=== PATIENT | female | born 1945 | race Caucasian/White ===

== ENCOUNTER 2016-09-14 09:06 | Observation (INO) | payer MEDICARE, OTHER ==
[~2016-09-14] VITALS: Ht 162.6 cm; Wt 70.1 kg
[~2016-09-14 09:06] MED LIST: ALPR.25 PO; AMLO5TAB2 PO; ANAS1TAB PO; NADO20TA PO; OMEP20TA PO; VITA100064 PO
[2016-09-14 09:40] VITALS: BP 168/91; PULSE 65; RESP 16; TEMP 97.3; O2SAT 100
[2016-09-14] MEDS ORDERED: INSULIN HUMAN REGULAR 1,000 UNITS/10 ML VIAL SQ PRN (09:45)
[2016-09-14] MEDS ORDERED: METOPROLOL TARTRATE 25 MG TAB PO PRN (09:45)
[2016-09-14] MEDS ORDERED: ceFAZolin 2 GM PREMIX 50 ML IV SCH (10:00)
[2016-09-14] MEDS ORDERED: SODIUM CHLORID 0.9% 500 ML IV SCH (10:00)
[2016-09-14] MEDS ORDERED: LACTATED RINGER'S 1000 ML IV SCH (10:00)
[2016-09-14] MEDS ORDERED: NEOSTIGMINE 3 MG/3 ML SYR IV ONE (10:13)
[2016-09-14] MEDS ORDERED: ePHEDrine/NS 50 MG/5 ML SYR IV ONE (10:13)
[2016-09-14] MEDS ORDERED: PROPOFOL 200 MG/20 ML AMP IV ONE (10:13)
[2016-09-14] MEDS ORDERED: LACTATED RINGER'S 1000 ML INJ 1,000 ML IV ONE (10:13)
[2016-09-14] MEDS ORDERED: ONDANSETRON HCL 4 MG/2 ML VIAL IV PUSH ONE (10:13)
[2016-09-14] MEDS ORDERED: SODIUM BICARBONATE 8.4% INJ 50 ML ONE (10:44)
[2016-09-14] MEDS ORDERED: LIDOCAINE 1%/EPINEPHrine 1:100,000 SOLN 20 ML VIAL ONE (10:45)
[2016-09-14] MEDS ORDERED: BUPIVACAINE HCL PF 0.5% 30 ML VIAL ONE (10:55)
[2016-09-14 11:17] LABS: AUTOMATED NEUTROPHIL # 2.7 TH/MM3 (1.8-7.7); BASOPHIL % 0.7 % (0.0-2.0); EOSINOPHIL # 0.3 TH/MM3 (0-0.4); EOSINOPHIL % 7.2 % (0.0-4.0); HEMATOCRIT 40.5 % (35.0-46.0); HEMO FLAGS DIFF FINAL; LYMPH % 19.2 % (9.0-44.0); LYMPHOCYTE # 0.8 TH/MM3 (1.0-4.8); MEAN CELL VOLUME 88.8 FL (80.0-100.0); MEAN CORPUSCULAR HEMOGLOBIN 28.8 PG (27.0-34.0); MEAN CORPUSCULAR HGB CONC 32.4 % (32.0-36.0); MONO % 9.3 % (0.0-8.0); NEUT % 63.6 % (16.0-70.0); PLATELET COUNT 117 TH/MM3 (150-450); RED BLOOD COUNT 4.56 MIL/MM3 (4.00-5.30); RED CELL DISTRIBUTION WIDTH 16.9 % (11.6-17.2); WHITE BLOOD COUNT 4.2 TH/MM3 (4.0-11.0)
[2016-09-14] MEDS ORDERED: BUPIVACAINE HCL PF 0.25% 30 ML VIAL ONE ×3 (11:55→11:58)
--- NOTE | 2016-09-14 12:07 | RADRPT ---
EXAM DATE/TIME: 09/14/2016 10:37 [facility] COMPARISON: No previous studies available for comparison. EXTERNAL COMPARISON : [facility], US BREAST, LEFT, September 02, 2016, MRI BREAST, BILATERA L, August 24, 2016, April 19, 2016, [facility], MAMMOGRAM POST BIOPSY, March 24, 2016, US BREAST SPECIMEN, March, US GUIDED LEFT BREAST BIOPSY, March 24, 2016, [facility] , US BREAST, LEFT, March 02, 2016, MAMMOGRAM, LEFT BREAST, March 02, 2016. INDICATIONS : Left breast mass seen on mammogram. MEDICAL HISTORY : Hypertension. Gastroesophageal reflux disease. Carcinoma, breast. Seizures. Mur mur. Uterine cancer. Throat cancer. Sciatica. SURGICAL HISTORY : Tonsillectomy. Appendectomy. Hysterectomy. Right angiogram. G tube placement. Polyps removed. Fissure fusion. IUD removal. Chemotherapy. ENCOUNTER: Initial ACUITY: 4-6 months PAIN SCORE: 0/10 LOCATION: Left breast. AREA EVALUATED: Left breast, upper quadrant; at 2 o'closk Radiopharmaceutical dose:1 Tc99m [place] colloid FINDINGS: Breast ultrasound was performed prior to lymphoscintigraphy. CONCLUSION: Ultrasound was used to localize the tumor in the left breast for lymphoscintigraphy. Kana Gonzalez MD FACR on September 14, 2016 at 12:05 Board Certified Radiologist. This report was verified electronically.
--- NOTE | 2016-09-14 12:22 | RADRPT ---
EXAM DATE/TIME: 09/14/2016 10:52 [facility] COMPARISON: No previous studies available for comparison. INDICATIONS : Left breast cancer. DOSE: 1.0 mCi Tc99m Sulfur Colloid INJECTION SITE: Left Breast MEDICAL HISTORY : Seizures. Breast, throat and uterine cancer. Current smoker. SURGICAL HISTORY : Hysterectomy. ENCOUNTER: Initial ACUITY: 2 months PAIN SCALE: 4/10 LOCATION: Right Breast. TECHNIQUE: Injection(s) of sulfur colloid was performed under sonographic guidance. Static imagi ng was obtained.. FINDINGS: Ultrasound localization was used to inject superficial and deep radiotracer in the left breast. CONCLUSION: Nuclear medicine lymphoscintigraphy left breast. Kana Gonzalez MD FACR on September 14, 2016 at 12:20 Board Certified Radiologist. This report was verified electronically.
[2016-09-14] MEDS ORDERED: FAMOTIDINE 20 MG/2 ML VIAL ONE (12:29)
[2016-09-14] MEDS ORDERED: MIDAZOLAM HCL 2 MG/2 ML VIAL ONE (12:29)
[2016-09-14] MEDS ORDERED: DEXAMETHASONE SOD PHOS 4 MG/ML VIAL ONE (12:29)
[2016-09-14] MEDS ORDERED: DICLOFENAC SODIUM 37.5 MG/ML VIAL IV PUSH ONE (12:29)
[2016-09-14] MEDS ORDERED: ACETAMINOPHEN 1000 MG/100 ML VIAL IV ONE (12:29)
--- NOTE | 2016-09-14 14:53 | EKG ---
Date Performed: 09/14/2016 Time Performed: 12:26:34 PTAGE: 70 years EKG: Sinus rhythm NORMAL ECG COMPARED TO PRIOR ELECTROCARDIOGRAM, poor R wave progression is no longer present. PREVIOUS TRACING : 03/27/2015 10.51 DOCTOR: Kirit Adan Interpretating Date/Time 09/14/2016 14:52:08
[2016-09-14] MEDS ORDERED: HYDROmorphone HCL PF 1 MG/ML VIAL IV PRN (17:30)
[2016-09-14] MEDS ORDERED: ZOLPIDEM TARTRATE 5 MG TAB PO PRN (17:30)
[2016-09-14] MEDS ORDERED: BISACODYL EC 5 MG TABEC PO PRN (17:30)
[2016-09-14] MEDS ORDERED: MAGNESIUM HYDROXIDE SUSP 30 ML CUP PO PRN (17:30)
[2016-09-14] MEDS ORDERED: METOCLOPRAMIDE HCL 10 MG/2 ML VIAL IV PRN (17:30)
[2016-09-14] MEDS ORDERED: ONDANSETRON HCL 4 MG/2 ML VIAL IV PRN (17:30)
[2016-09-14] MEDS ORDERED: SODIUM CHLORIDE 0.9% FLUSH 5 ML FLUSH IVF PRN (17:30)
[2016-09-14] MEDS ORDERED: NALOXONE HCL 0.4 MG/ML AMP IV PRN (17:30)
[2016-09-14] MEDS ORDERED: ACETAMINOPHEN/HYDROcodone 325 MG/5 MG TAB PO PRN (17:30)
[2016-09-14] MEDS ORDERED: Post-op Orders (for Pharmacy) MISC XX ONE (17:30)
[2016-09-14] MEDS ORDERED: ACETAMINOPHEN/HYDROcodone 325 MG/7.5 MG TAB PO PRN (17:30)
[2016-09-14] MEDS ORDERED: *morphine SULFATE 8 MG/ML PERIprocedure ONLY ONE (17:36)
--- NOTE | 2016-09-14 17:39 | HHI.PR ---
cc: Jorge Walls MD Immediate Post Op Note Procedure Date: Sep 14, 2016 Pre Op Diagnosis: (1) History of external beam radiation therapy (2) Gastrostomy tube in place (3) Breast cancer, left (4) Tongue malignant neoplasm (5) Hx of thrombophlebitis (6) Hx of cancer of uterus Post Op Diagnosis: (1) History of external beam radiation therapy (2) Gastrostomy tube in place (3) Breast cancer, left (4) Tongue malignant neoplasm (5) Thrombophlebitis (6) Liver cirrhosis Surgeon: Jorge Walls Column Precaster(s): Refer to OR record Procedure: Injection of LigaSure and blue dye Removal of gastrostomy tube Prophylactic right mastectomy Modified radical mastectomy left with sentinel node identification with lymphatic mapping Placement of On-Q pain pump Anesthesia: General Drains: None IVF Patient to: PACU Patient Condition: Good Implant/Devices: SEE IMPLANT LOG (if applicable) Date/Time of Procedure: SEE SURGICAL CARE RECORD Jorge Walls MD Sep 14, 2016 17:39
[2016-09-14] MEDS ORDERED: ALPRAZolam 0.25 MG TAB PO PRN (17:45)
[2016-09-14] MEDS ORDERED: NORC5TAB PO (17:59)
[2016-09-14] MEDS: SODIUM CHLOR 0.9% 1000 ML INJ 1,000 ML IV SCH (18:00)
[2016-09-14] MEDS ORDERED: DO NOT ADM ANY ANTICOAGULANT DRUGS XX PRN (19:30)
[2016-09-14 20:00] VITALS: BP 124/66; PULSE 56; RESP 18; TEMP 97; O2SAT 100
[2016-09-14] MEDS: SODIUM CHLORIDE 0.9% FLUSH 5 ML FLUSH IVF SCH (21:00)
[2016-09-14] MEDS: ACETAMINOPHEN 1000 MG/100 ML VIAL IV SCH (21:21)
[2016-09-14] MEDS: DOCUSATE SODIUM 100 MG CAP PO SCH (21:21)
[2016-09-15] VITALS: BP 109/64; PULSE 56; RESP 16; TEMP 97.6; O2SAT 100
[2016-09-15] MEDS: ACETAMINOPHEN 1000 MG/100 ML VIAL IV SCH ×2 (01:04→08:06)
[2016-09-15 04:00] VITALS: BP 99/57; PULSE 55; RESP 18; TEMP 97.6; O2SAT 100
[2016-09-15] MEDS: SODIUM CHLOR 0.9% 1000 ML INJ 1,000 ML IV SCH (05:42)
[2016-09-15 08:00] VITALS: BP 98/57; PULSE 59; RESP 19; TEMP 96.4; O2SAT 97
[2016-09-15] MEDS: DOCUSATE SODIUM 100 MG CAP PO SCH (08:06)
[2016-09-15] MEDS: SODIUM CHLORIDE 0.9% FLUSH 5 ML FLUSH IVF SCH (08:13)
[2016-09-15] MEDS ORDERED: PANTOPRAZOLE SOD 20 MG DELAYED RELEASE TAB PO SCH (09:00)
[2016-09-15] MEDS ORDERED: CHOLECALCIFEROL (VIT D3) 1000 UNIT TAB PO SCH (09:00)
[2016-09-15] MEDS ORDERED: ANASTROZOLE 1 MG TAB PO SCH (09:00)
[2016-09-15] MEDS ORDERED: amLODIPine BESYLATE 5 MG TAB PO SCH (09:00)
[2016-09-15] MEDS ORDERED: NADOLOL 20 MG TAB PO SCH (09:00)
[2016-09-15 09:44] VITALS: O2SAT 98
[2016-09-15 12:00] VITALS: BP 107/56; PULSE 62; RESP 17; TEMP 95.8; O2SAT 100
--- NOTE | 2016-09-20 19:07 | MP ---
cc: ARTEMIO HAYS MD, H ALVAREZ-FARINETTI,DENISE MENDEZ,VITALY BARRAGAN M.D., HASSAN M.D. DATE OF SURGERY 09/14/2016 PREOPERATIVE DIAGNOSIS Right breast cancer tongue cancer. POSTOPERATIVE DIAGNOSIS Right breast cancer tongue cancer. PROCEDURE 1. Removal of gastrostomy tube. 2. Injection of Lymphazurin blue dye in left breast cancer for lymphatic mapping. 3. Prophylactic right simple mastectomy. 4. Modified radical mastectomy with identification of numerous sentinel nodes by lymphatic mapping. 5. Placed of On-Q pain pump for postop pain management. ANESTHESIA General SURGEON Dr. Walls INDICATIONS This is a pleasant 70-year-old female who was found to have a left-sided breast cancer. She also had a head and neck cancer that is the previously treated with radiation and chemotherapy into an Tdwtjv-D-Ixsm. She is now set for definitive surgery for breast cancer. Unfortunately, she was found to have some other suspicious nodules in the right breast that were going to be worked up, but she has decided to proceed with bilateral mastectomy. In addition, she has a gastrostomy tube that is no longer being used and she asked me to pull the gastrostomy tube during the breast cancer surgery. PROCEDURE The patient was taken to the operating room, placed in the supine position. After endotracheal anesthesia, the gastrostomy tube is pulled after we did a time-out. We then prepped for left breast, identifying where the radioactive tracer had been placed and inject 6 cc of Lymphazurin blue dye for lymphatic mapping to identify the sentinel nodes. Noted that we have one or two hot spots in the axillary region with the navigator probe. After prepping and draping with Betadine, we then direct our attention to the right breast. An elliptical incision was made in typical fashion. Flaps were made superiorly and inferiorly all the way from the sternum along the pectoralis muscle to elevate the breast tissue to the tail of breast which is removed. This was marked with a stitch at the 12 o'clock position. We then irrigate copiously. No lymphadenopathy is palpated. We then placed the On-Q pain pump because of her aversion to narcotics and placed the drain in the inferior flap. We then reapproximate the deep skin layer with 3-0 Vicryl and the skin was reapproximated with a 4-0 Vicryl. We then direct our attention to the left side. Similar incision is made, an elliptical incision to incorporate all the breast tissue. We made superior flaps up to the clavicle, inferior to the muscles of the abdominal wall and from the sternum along the pectoralis muscle up to the tail of the breast identifying the subclavian vein. The lymph nodes were identified and labeled as such with the pathology report. All the sentinel nodes were identified by a combination of blue dye and the radioactivity. These were sent down in separate specimen container. The breast tissue was then removed and passed off the field, marked similarly with a stitch at the 12 o'clock position. We then irrigate copiously. No other lymphadenopathy is appreciated. No other hot spots is noted in the axillary region. We then placed an On-Q pain pump along the superior aspect of the wound and two LOREN's one in the axillary space, one in the inferior flap. These were secured to the skin with 3-0 nylon. We then reapproximate the deep layer of the flaps of the breast with a 3-0 Vicryl and the skin was closed with 4-0 Vicryl and then the Yanique dressing is then placed on the mastectomy site for wound care management. The On-Q pain pump disconnected as well. The patient returned to recovery with no immediate postop complication. MD CHANTELL Correa/DAHIANA /5:47 PM /6:50 PM IN[facility]
[2016-12-19] MEDS ORDERED: OMEP20TA PO (10:18)
== END 2016-09-15 14:47 | disposition home health service (06) ==
LOC: HSDC 09:06 → HSDI 17:33 → UNDOADMIN 17:33 → N07A 18:46 → HSDI 18:46 → UNDODISIN 09-15 14:47
PROVIDERS: ADMIT Surgery; ATTEND Surgery
DX: C50.412 Malignant neoplasm of upper-outer quadrant of left female breast (principal); C76.0 Malignant neoplasm of head, face and neck; I10 Essential (primary) hypertension
CPT/HCPCS: 00404; 19303; 19307; 76642; 78195; 85025; 88307; 88309; 93005; 94150; A9541; G0378; J0131; J1100; J1130; J2250; J2270; J2405; J2710; J3010; J7030; J7120; 88305

== ENCOUNTER 2016-12-01 13:19 | Day surgery (SDC) | payer OTHER, MEDICAID ==
[~2016-12-01 13:19] MED LIST changes: +NORC5TAB PO
[2016-12-01 13:48] VITALS: BP 129/72; PULSE 75; RESP 16; TEMP 97; O2SAT 100
--- NOTE | 2016-12-01 15:07 | RADRPT ---
EXAM DATE/TIME: 12/01/2016 13:57 [facility] COMPARISON: No previous studies available for comparison. EXTERNAL COMPARISON : [facility], PET/CT - HEAD & NECK CA, October 06, 2016[facility]. CT SOFT TISSUE NEC K, W & W/O CONTRAST August 17, 2016. INDICATIONS : Abnormal PET scan, left parotid mass. MEDICAL HISTORY : Hypertension. Gastroesophageal reflux disease. Seizures. Uterine, breast and throat cancer. SURGICAL HISTORY : Tonsillectomy. Appendectomy. Hysterectomy. G tube placement. Polyps and removed. Fissure fusion. ENCOUNTER: Initial ACUITY: 1 day PAIN SCORE: 0/10 LOCATION: Left neck AREA EVALUATED: Left neck. FINDINGS: Ultrasound the left neck and face was performed prior to planned parotid region biopsy. Prior neck CT documented a symmetric appearance to the left parotid gland and patient reports history of prior lef t facial swelling. Prior PET/CT demonstrated asymmetric hypermetabolic activity in the left parotid g land. Ultrasound documents a normal-appearing parotid gland. No mass is identified. The surrounding tissue also has a normal appearance. On clinical exam there is no swelling or skin changes in the area of in terest. CONCLUSION: No parotid gland or left facial mass is identified. Therefore, no biopsy was performed. I question wh ether the asymmetric activity in the parotid glands on the recent PET/CT may be related to the right neck radiation therapy which has resulted in a hypoactive right parotid gland making the left parotid gland appear hypermetabolic. Ignacio Saenz MD on December 01, 2016 at 15:01 Board Certified Radiologist. This report was verified electronically.
[2016-12-19] MEDS ORDERED: OMEP20TA PO (10:18)
== END 2016-12-01 15:05 | disposition home or self-care (01) ==
LOC: HRAD 13:19 → HRIP 13:23 → HRAD 15:05
PROVIDERS: ATTEND Specialist
DX: R22.1 Localized swelling, mass and lump, neck (principal)
CPT/HCPCS: 76536

== ENCOUNTER 2016-12-21 14:01 | Inpatient (IN) | payer OTHER, MEDICARE ==
[~2016-12-21] VITALS: Ht 165.1 cm; Wt 66.2 kg
[2016-12-21] VITALS (15 sets, daily range): BP systolic 99–151; BP diastolic 51–70; PULSE 69–92; RESP 15–18; TEMP 96.5–99.2; O2SAT 97–100
--- NOTE | 2016-12-21 14:07 | PD ---
Physical Exam Time Seen by Provider: 14:06 Narrative 71 y/o female presents W left foot/hip pain for several days. Denies known mechanism of injury. Vital signs reviewed. Seen at triage desk. Awaiting bed placement. Data Data Last Documented VS Vital Signs Date Time Temp Pulse Resp B/P Pulse Ox O2 Delivery O2 Flow Rate FiO2 12/21/16 14:05 98.1 92 18 146/69 99 MDM Medical Record Reviewed: Yes Supervised Visit with KACIE: Hector Esposito December 21, 2016 14:07
--- NOTE | 2016-12-21 14:52 | RADRPT ---
EXAM DATE/TIME: 12/21/2016 14:32 [facility] COMPARISON: No previous studies available for comparison. INDICATIONS : left foot pain and numbness. MEDICAL HISTORY : Carcinoma, breast. Left breast CA. SURGICAL HISTORY : Hysterectomy. Bilateral mastectomy. ENCOUNTER: Initial ACUITY: 1 month PAIN SCORE: 8/10 LOCATION: Left Foot. FINDINGS: Mild arthritic change in the first MTP joint. There is no evidence of fracture, dislocation or bony d estruction. The soft tissues are focally unremarkable. CONCLUSION: Mild arthritic changes. Ignacio Hampton MD on December 21, 2016 at 14:49 Board Certified Radiologist. This report was verified electronically.
[2016-12-21] MEDS ORDERED: PROC10TA PO (15:27)
[2016-12-21] MEDS ORDERED: HEPARIN SODIUM - IV 10,000 UNITS/10 ML VIAL IV ONE (15:45)
[2016-12-21] MEDS ORDERED: HEPARIN-D5W INJ 250 ML IV SCH (15:45)
[2016-12-21] MEDS ORDERED: SODIUM CHLORIDE 0.9% FLUSH 10 ML FLUSH IVF PRN (15:45)
[2016-12-21 16:29] LABS: APTT (PATIENT) 31.3 SEC (24.3-30.1); INTERNATIONAL NORMALIZED RATIO 1.1 RATIO; PROTHROMBIN TIME - PATIENT 12.3 SEC (9.8-11.6)
[2016-12-21 16:32] LABS: HEMATOCRIT 22.7 % (35.0-46.0); MEAN CELL VOLUME 82.8 FL (80.0-100.0); MEAN CORPUSCULAR HGB CONC 33.8 % (32.0-36.0); RED BLOOD COUNT 2.74 MIL/MM3 (4.00-5.30); RED CELL DISTRIBUTION WIDTH 26.2 % (11.6-17.2); WHITE BLOOD COUNT 1.1 TH/MM3 (4.0-11.0)
[2016-12-21 16:39] LABS: ANION GAP 9 MEQ/L (5-15); BICARBONATE 24.4 MEQ/L (21.0-32.0); BLOOD UREA NITROGEN 15 MG/DL (7-18); CHLORIDE 104 MEQ/L (98-107); GLOMERULAR FILTRATION RATE 79 ML/MIN (>89); MAGNESIUM 1.8 MG/DL (1.5-2.5); POTASSIUM 4.2 MEQ/L (3.5-5.1); SODIUM (NA) 137 MEQ/L (136-145)
[2016-12-21] MEDS ORDERED: IOHEXOL 350 MG/ML 10 ML VIAL (for RAD DIAG) IV ONE (16:42)
[2016-12-21 16:50] LABS: HEMO FLAGS AUTO DIFF; REVIEW FLAG AUTO DIFF
--- NOTE | 2016-12-21 16:56 | RADRPT ---
EXAM DATE/TIME: 12/21/2016 16:15 [facility] COMPARISON: No previous studies available for comparison. INDICATIONS : Left foot/leg pain for 1 week. IV CONTRAST: 78 cc Omnipaque 350 (iohexol) IV RADIATION DOSE: 1.78 CTDIvol (mGy) MEDICAL HISTORY : Seizures. Cardiovascular disease Hypertension.Breast and uterine cancer SURGICAL HISTORY : Appendectomy. Hysterectomy. ENCOUNTER: Initial ACUITY: 1 week PAIN SCALE: 4/10 LOCATION: Left lower extremity TECHNIQUE: Volumetric scanning was performed using a multi-row detector CT scanner. The data was post processed with a variety of visualization algorithms including full volume maximum intensity projection, multi -planar sliding thin slab reformation, curved planar reformation, and surface rendering techniques. Using automated exposure control and adjustment of the mA and/or kV according to patient size, radiat ion dose was kept as low as reasonably achievable to obtain optimal diagnostic quality images. FINDINGS: Aorta/inflow: There is chronic occlusion of the infrarenal aorta and inflow vessels bilaterally. The occlusion begi ns just below the origin of the renal arteries. The common iliac and external iliac arteries are extr valente small in caliber and homogeneously calcified. The internal iliac arteries are chronically occlu ded bilaterally. Calcified plaque generates a 40% stenosis of the SMA origin. Celiac is patent. ZULY i s stenotic at its origin but otherwise patent. Renal arteries are calcified but patent. Right lower extremity: There is reconstitution of a heavily diseased common femoral artery. Calcified plaque generates a 50% stenosis of the common femoral artery. The profunda femoris origin is highly stenotic secondary to e ccentric calcified plaque. The [place] SFA is chronically occluded. There is a common femoral artery t o above the knee popliteal artery bypass utilizing PTFE. This is occluded. This is felt to be chronic in nature. Portions of the graft are totally decompressed. The popliteal artery just distal to the d istal anastomosis shows calcified plaque generating a 50% stenosis. This occurs at the metaphyseal le estela. Inferior to this the popliteal artery is patent. The trifurcation vessels are partially opacifie d with contrast. There somewhat limited in their evaluation. Diffuse disease of all 3 trifurcation ve ssels observed. This is secondary to calcified plaque. Multiple areas of moderate luminal narrowing a re seen scattered throughout all 3 trifurcation vessels. Left lower extremity: The common femoral artery is chronically occluded. There is reconstitution of the proximal profunda f emoris branches but these are fairly small in caliber. The [place] SFA is chronically occluded. There is reconstitution of a heavily diseased above the knee popliteal artery. The below-knee popliteal art brianna is patent. Diffuse disease of the trifurcation vessels with multiple moderate stenoses scattered throughout all trifurcation vessels. Other structures: Sclerotic changes involving the liver. Multiple calcified gallstones within a decompressed gallbladde r. Mild splenomegaly. Portal vein and splenic vein are patent. Colonic diverticulosis. No acute infla mmation. Trace amount of free fluid deep within the pelvis. CONCLUSION: 1. 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 2. Right lower extremity shows severe outflow disease. There is chronic occlusion of the femoropoplit eal bypass as well as the [place] SFA. Reconstitution of the fezel-giq-czbl popliteal artery. Diffuse moderate trifurcation disease. 3. Left lower extremity has chronic occlusion of the common femoral artery and outflow vessels. There is reconstitution of a heavily diseased above the knee popliteal artery. Diffuse moderate disease of the trifurcation vessels. 4. The patient's disease is not amenable to endovascular repair. 5. Cirrhosis. 6. Splenomegaly. 7. Colonic diverticulosis. Jan Ferraro Jr., MD on December 21, 2016 at 16:41 Board Certified Radiologist. This report was verified electronically.
[2016-12-21 16:57] LABS: PLATELET COUNT 17 TH/MM3 (150-450)
[2016-12-21 16:59] LABS: CREATINE KINASE 22 U/L (26-192)
--- NOTE | 2016-12-21 17:06 | RADRPT ---
EXAM DATE/TIME: 12/21/2016 16:04 [facility] COMPARISON: CHEST SINGLE AP, March 27, 2015, 10:49. INDICATIONS : Shortness of breath. MEDICAL HISTORY : Chronic obstructive pulmonary disease. Carcinoma, breast. SURGICAL HISTORY : Mastectomy, bilateral. Qkwsha-P-Kmcu. ENCOUNTER: Initial ACUITY: 2 days PAIN SCORE: 0/10 LOCATION: Chest FINDINGS: A left subclavian Oruqmr-t-Ewku has its tip in the superior vena cava. There is no pneumothorax. Th e heart is normal. The pulmonary vascular pattern is also normal. The lungs are clear. CONCLUSION: No acute cardiopulmonary disease. Paulie Carey MD on December 21, 2016 at 17:00 Board Certified Radiologist. This report was verified electronically.
[2016-12-21] MEDS ORDERED: SODIUM CHLOR 0.9% 250 ML INJ 250 ML IV ONE (17:15)
--- NOTE | 2016-12-21 17:37 | PD.VS.CON ---
History of Present Illness Chief Complaint: left leg pain.. Consult Requested by: Dr. Bonenr History of Present Illness This is a 71 year old female with hx of left leg pain that is more severe than usual in her left lower extremity. In [facility] and had a sharper than usual pain that radiated from her hips distally that was more excruciating than usual. Patient notes she has left hip pain with ambulation but also complains of left calf pain. She has a hx of pain with ambulation of less than 50 feet and Rest pain for more than 3 years. She has a hx of a right lower extremity bypass. No pain at rest at this point. Motor function intact. She had bilateral mastectomies about 6 weeks ago and is getting chemotherapy. Hx of tongue cancer more than a year ago treated with chemotx. Hx of liver cirrhosis from ETOH abuse. Continues to smoke. Past/Family/Social History Home Medications Active Scripts Omeprazole 20 Mg Tab20 Mg PO DAILY #90 TAB Ref 3 Prov:Blayne Marx MD R3 12/19/16 Hydrocodone-Acetaminophen ([place])5-325 mg Tab1 Tab PO Q6H PRN (PAIN) #30 TAB Ref 0 Prov:Jorge Walls MD 09/14/16 Reported Medications Prochlorperazine Maleate 10 Mg Tab10 Mg PO Q6H PRN (NAUSEA OR VOMITING) Ref 0 12/21/16 Alprazolam (Xanax)0.25 Mg Tab0.25 Mg PO Q8H PRN (ANXIETY) Ref 0 09/13/16 Anastrozole 1 Mg Tab1 Mg PO DAILY #30 TAB Ref 0 09/13/16 Amlodipine 5 Mg Tab5 Mg PO DAILY #30 TAB Ref 0 09/13/16 Cholecalciferol (Vitamin D)1,000 Unit Tab1,000 Units PO DAILY #1 BOTTLE Ref 0 09/09/16 Nadolol 20 Mg Tab20 Mg PO DAILY #30 TAB Ref 0 09/09/16 Discontinued Reported Medications Omeprazole 20 Mg Tab20 Mg PO DAILY #30 TAB Ref 0 09/09/16 Coded Allergies: No Known Allergies (Unverified , 12/21/16) Review of Systems Constitutional: COMPLAINS OF: Diaphoretic episodes Cardiovascular: COMPLAINS OF: Claudication Neurologic: COMPLAINS OF: Abnormal gait, Poor Balance Physical Exam Vitals/I&O Date Time Temp Pulse Resp B/P Pulse Ox O2 Delivery O2 Flow Rate FiO2 12/21/16 17:06 70 17 121/70 100 12/21/16 16:02 78 18 151/69 100 12/21/16 16:00 100 Room Air 12/21/16 15:59 100 Room Air 12/21/16 15:22 16 12/21/16 14:05 98.1 92 18 146/69 99 Neuro: Alert and Oriented x 3 Neck: supple Heart: irregular Lungs: Decreased at base. Abdomen: soft and non-distended. Vascular: Monophasic left femoral and Faint PT and Peroneal. Biphasic right femoral and monophasic PT. Motor and fine sensory intact. Laboratory Tests Test 12/21/16 15:55 White Blood Count 1.1 Red Blood Count 2.74 Hemoglobin 7.7 Hematocrit 22.7 Mean Corpuscular Volume 82.8 Mean Corpuscular Hemoglobin 28.0 Mean Corpuscular Hemoglobin 33.8 Concent Red Cell Distribution Width 26.2 Platelet Count 17 Mean Platelet Volume 10.5 Neutrophils (%) (Auto) Lymphocytes (%) (Auto) Monocytes (%) (Auto) Eosinophils (%) (Auto) Basophils (%) (Auto) Neutrophils # (Auto) Lymphocytes # (Auto) Monocytes # (Auto) Eosinophils # (Auto) Basophils # (Auto) CBC Comment AUTO DIFF Prothrombin Time 12.3 Prothromb Time International 1.1 Ratio Activated Partial 31.3 Thromboplast Time Sodium Level 137 Potassium Level 4.2 Chloride Level 104 Carbon Dioxide Level 24.4 Anion Gap 9 Blood Urea Nitrogen 15 Creatinine 0.73 Estimat Glomerular Filtration 79 Rate Random Glucose 122 Calcium Level 8.6 Magnesium Level 1.8 Total Creatine Kinase 22 Troponin I LESS THAN 0.02 Last 48 hours Impressions Aorta w/Runoff CTA 12/21/16 1549 Signed Impressions: Service Date/Time: Wednesday, December 21, 2016 16:15 - CONCLUSION: 1. 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 2. Right lower extremity shows severe outflow disease. There is chronic occlusion of the femoropopliteal bypass as well as the [place] SFA. Reconstitution of the zdhji-byd-pyit popliteal artery. Diffuse moderate trifurcation disease. 3. Left lower extremity has chronic occlusion of the common femoral artery and outflow vessels. There is reconstitution of a heavily diseased above the knee popliteal artery. Diffuse moderate disease of the trifurcation vessels. 4. The patient's disease is not amenable to endovascular repair. 5. Cirrhosis. 6. Splenomegaly. 7. Colonic diverticulosis. Jan Ferraro Jr., MD Foot X-Ray 12/21/16 0000 Signed Impressions: Service Date/Time: Wednesday, December 21, 2016 14:32 - CONCLUSION: Mild arthritic changes. Ignacio Hampton MD Assessment and Plan Assessment: (1) PAD (peripheral artery disease) Status: Acute (2) Liver cirrhosis Status: Acute (3) Breast cancer, left Status: Acute Plan This is a pleasant 71 year old female with chronic critical limb ischemia. She has had rest pain for a few years and has had short distance claudication. She is on chemotx for breast cancer and is pancytopenic. Her motor and sensory function is intact and I suspect her medical condition as well as her exertion (shopping in [place]) may have exacerbated her PAD. She has multilevel disease by CTA. She is not an open surgical candidate for a bypass procedure at this time. I will continue to follow her and once she has been transfused she may benefit from some physical therapy. Otherwise, she can be treated with pain management. Francisco J Vogel DO, FACS Sales Receptionist of Vascular Surgery /Francisco J Ulrich DO December 21, 2016 17:37
--- NOTE | 2016-12-21 17:39 | PD ---
HPI Chief Complaint: Pain: Acute or Chronic Time Seen by Provider: 17:26 Travel History International Travel<30 days: No Contact w/Intl Traveler<30days: No Traveled to known affect area: No History of Present Illness HPI 71-year-old female came to the emergency room with history of left leg pain while she was in [facility]. Patient says she's been having pain in her left leg on and off for a few months now. However, today the sister noticed that her left foot was turning purple which has never happened before. Also patient has been complaining of numbness starting from her hip all the way down to her toes. Patient says she had to sit down at [facility] when the pain was severe. Her sister noticed that her rest of the skin color was pale and she was diaphoretic. It seemed like she was going to pass out when they called 911. Patient says now she is feeling little better and the pain had subsided to some extent. However her foot feels cold to her. She has history of peripheral vascular disease in many years ago had a stent put in her right leg. Patient is still a smoker. She has other significant comorbidities in the form of breast cancer and currently going through chemotherapy. Her oncologist is Dr. Mercedes. She has also been diagnosed with alcoholic cirrhosis all the patient does not drink alcohol anymore. FORMERLY [facility] Past Medical History Narrative Medical List of her past medical, surgical, social and family history is reviewed from the nursing note. Cancer: Yes (UTERINE CANCER, THROAT CANCER, BREAST CA) Cardiovascular Problems: Yes (MURMUR) Chemotherapy: Yes (2 weeks ago) Cirrhosis: Yes Diabetes: No Diminished Hearing: No Endocrine: No Gastrointestinal Disorders: Yes (G-TUBE, REFLUX) Genitourinary: No Hepatitis: No Hiatal Hernia: No Hypertension: Yes Immune Disorder: No Implanted Vascular Access Dvce: Yes (port l chest) Medical other: Yes (pvd) Musculoskeletal: Yes (SCIATICA) Neurologic: Yes (SEIZURES) Psychiatric: Yes (ANXIETY, DEPRESSION) Reproductive: Yes (UTERINE CANCER, BREAST CA) Respiratory: No Immunizations Current: No Myocardial Infarction: Yes Seizures: Yes Thyroid Disease: No Tetanus Vaccination: > 5 Years Influenza Vaccination: No ?: Not Past Surgical History Abdominal Surgery: Yes (polyps removed, FISSURE FUSION, G-TUBE PLACEMENT/ removal) AICD: No Appendectomy: Yes Cardiac Surgery: No Ear Surgery: No Endocrine Surgery: No Eye Surgery: No Genitourinary Surgery: No Gynecologic Surgery: Yes (HYSTERECTOMY, IUD REMOVED) Hysterectomy: Yes Joint Replacement: No Neurologic Surgery: Yes (RIGHT ANGIOGRAM) Oral Surgery: Yes (TONSILLECTOMY) Pacemaker: No Thoracic Surgery: No Other Surgery: Yes Social History Alcohol Use: No Tobacco Use: Yes (08/24 ppd) Substance Use: No Allergies-Medications (Allergen,Severity, Reaction): Coded Allergies: No Known Allergies (Unverified , 12/21/16) Comments No known drug allergies. Reported Meds & Prescriptions Reported Meds & Active Scripts Active Omeprazole 20 Mg Tab 20 Mg PO DAILY Abrams (Hydrocodone-Acetaminophen) 5-325 mg Tab 1 Tab PO Q6H PRN Reported Prochlorperazine Maleate 10 Mg Tab 10 Mg PO Q6H PRN Xanax (Alprazolam) 0.25 Mg Tab 0.25 Mg PO Q8H PRN Anastrozole 1 Mg Tab 1 Mg PO DAILY Amlodipine (Amlodipine Besylate) 5 Mg Tab 5 Mg PO DAILY Vitamin D (Cholecalciferol) 1,000 Unit Tab 1,000 Units PO DAILY Nadolol 20 Mg Tab 20 Mg PO DAILY Narrative Medication List of her home medications reviewed from the nursing note. Review of Systems Except as stated in HPI: all other systems reviewed are Neg Physical Exam Narrative GENERAL: Awake, alert, looks much older than her age, moderate distress, anxious SKIN: Focused skin assessment warm/dry. Pale. Left foot has purple discoloration HEAD: Atraumatic. Normocephalic. EYES: Pupils equal and round. No scleral icterus. No injection or drainage. ENT: No nasal bleeding or discharge. Mucous membranes pink and moist. NECK: Trachea midline. No JVD. CARDIOVASCULAR: Regular rate and rhythm. No murmur appreciated. RESPIRATORY: No accessory muscle use. Clear to auscultation. Breath sounds equal bilaterally. GASTROINTESTINAL: Abdomen soft, non-tender, nondistended. Hepatic and splenic margins not palpable. MUSCULOSKELETAL: No obvious deformities. No clubbing. No cyanosis. No edema. No palpable pulses felt in her left DP, PT or popliteal. No dopplerable pulses at left DP, PT or popliteal. Femoral was dopplerable. NEUROLOGICAL: Awake and alert. No obvious cranial nerve deficits. Motor grossly within normal limits. Normal speech. PSYCHIATRIC: Appropriate mood and affect; insight and judgment normal. Data Data Last Documented VS Vital Signs Date Time Temp Pulse Resp B/P Pulse Ox O2 Delivery O2 Flow Rate FiO2 12/21/16 17:06 70 17 121/70 100 12/21/16 16:00 Room Air 12/21/16 14:05 98.1 Orders Foot, Complete (Sfh3olo) (12/21/16 ) Electrocardiogram (12/21/16 15:38) Basic Metabolic Panel (Bmp) (12/21/16 15:38) Ckmb (Isoenzyme) Profile (12/21/16 15:38) Complete Blood Count With Diff (12/21/16 15:38) Magnesium (Mg) (12/21/16 15:38) Prothrombin Time / Inr (Pt) (12/21/16 15:38) Act Partial Throm Time (Ptt) (12/21/16 15:38) Troponin I (12/21/16 15:38) Chest, Single Ap (12/21/16 15:38) Ecg Monitoring (12/21/16 15:38) Bilateral Bp Monitoring (12/21/16 15:38) Iv Access Insert/Monitor (12/21/16 15:38) Oximetry (12/21/16 15:38) Oxygen Administration (12/21/16 15:38) Sodium Chloride 0.9% Flush (Ns Flush) (12/21/16 15:45) Heparin Infusion NESS.Q1H (12/21/16 15:38) Heparin Inj (Heparin Inj) (12/21/16 15:45) Heparin-D5w Inj (Heparin-D5w Inj) (12/21/16 15:45) Cbc No Diff, Includes Plts (12/21/16 15:38) Cbc No Diff, Includes Plts (12/24/16 06:00) Act Partial Throm Time (Ptt) (12/21/16 22:38) Occult Blood (Hemoccult) Stool (12/21/16 15:38) Cta Runoff W Iv Contrast W 3d (12/21/16 15:49) Iohexol 350 Inj (Omnipaque 350 Inj) (12/21/16 16:42) Type And Screen (12/21/16 17:12) Red Blood Cells (Rbc) (12/21/16 17:12) Blood Product Administration .UPON TRANSFUSION (12/21/16 17:12) Sodium Chlor 0.9% 250 Ml Inj (Ns 250 Ml (12/21/16 17:15) Consult Hematology (12/21/16 ) Admit Order (Ed Use Only) (12/21/16 17:39) Labs Laboratory Tests Test 12/21/16 12/21/16 15:55 17:33 White Blood Count 1.1 TH/MM3 Red Blood Count 2.74 MIL/MM3 Hemoglobin 7.7 GM/DL Hematocrit 22.7 % Mean Corpuscular Volume 82.8 FL Mean Corpuscular Hemoglobin 28.0 PG Mean Corpuscular Hemoglobin 33.8 % Concent Red Cell Distribution Width 26.2 % Platelet Count 17 TH/MM3 Mean Platelet Volume 10.5 FL Neutrophils (%) (Auto) % Lymphocytes (%) (Auto) % Monocytes (%) (Auto) % Eosinophils (%) (Auto) % Basophils (%) (Auto) % Neutrophils # (Auto) TH/MM3 Lymphocytes # (Auto) TH/MM3 Monocytes # (Auto) TH/MM3 Eosinophils # (Auto) TH/MM3 Basophils # (Auto) TH/MM3 CBC Comment AUTO DIFF Differential Total Cells 100 Counted Neutrophils % (Manual) 29 % Band Neutrophils % 9 % Lymphocytes % 35 % Monocytes % 19 % Basophils % 3 % Neutrophils # (Manual) 0.5 TH/MM3 Metamyelocytes 5 % Differential Comment FINAL DIFF MANUAL Platelet Estimate RARE Platelet Morphology Comment NORMAL Tear Drop Cells 1+ Ovalocytes 1+ Keratocytes OCC Prothrombin Time 12.3 SEC Prothromb Time International 1.1 RATIO Ratio Sodium Level 137 MEQ/L Potassium Level 4.2 MEQ/L Chloride Level 104 MEQ/L Carbon Dioxide Level 24.4 MEQ/L Anion Gap 9 MEQ/L Blood Urea Nitrogen 15 MG/DL Creatinine 0.73 MG/DL Estimat Glomerular Filtration 79 ML/MIN Rate Random Glucose 122 MG/DL Calcium Level 8.6 MG/DL Magnesium Level 1.8 MG/DL Total Creatine Kinase 22 U/L Troponin I LESS THAN 0.02 NG/ML Blood Type A POSITIVE Antibody Screen NEGATIVE Crossmatch Leukocyte-Reduced Red Blood Cells Blood Bank Comment MDM Medical Decision Making Medical Screen Exam Complete: Yes Emergency Medical Condition: Yes Medical Record Reviewed: Yes Interpretation(s) Twelve-lead EKG was reviewed by me. Normal sinus rhythm, normal axis, nonspecific ST-T wave changes. Heart rate of 75 bpm. Differential Diagnosis Thromboembolic ischemia, acute on chronic PVD Narrative Course 5:35 PM case was discussed with the vascular surgeon Dr. Vogel. He recommended a stat CTA of her leg which was done. He is currently here and has seen the patient. He does not plan to operate on this patient currently since as per him this is chronic occlusion. Patient had received initially 5000 units of heparin bolus and was started on a drip. However once the labs started to come back it was noticed that patient has thrombocytopenia. The heparin has been stopped at this point. Also her H&H was low and I have ordered 2 units of PRBC transfusion. Patient has been admitted to the hospitalist. Please refer to the vascular surgeons dictation as well. Critical Care Narrative Aggregate critical care time was 60 minutes. Time to perform other separately billable procedures was not included in the critical care time. My time did not include minutes spent treating any other patients simultaneously or on activities that did not directly contribute to the patient's treatment. The services I provided to this patient were to treat and/or prevent clinically significant deterioration that could result in: Severe acute on chronic peripheral vascular disease, heparin bolus and drip , leukocytopenia, thrombocytopenia I provided critical care services requiring my management, as noted below: Chart data review, documentation time, medication orders and management, vital sign assessments/reviewing monitor data, ordering and reviewing lab tests, ordering and interpreting/reviewing x-rays and diagnostic studies, care of the patient and discussion of the patient with the admitting physicians. Procedures EKG Prior to Arrival: No Physician Communication Physician Communication Dr. Vogel Diagnosis Primary Impression: acute on chronic left leg occlusion Additional Impression: Pancytopenia Admitting Information Admitting Physician Requests: Haydee Medina MD December 21, 2016 17:39 Admitting Physician Requests: Haydee Medina MD December 21, 2016 17:39
[2016-12-21 17:57] LABS: BANDS 9 % (0-6); BASOPHILS 3 % (0-2); METAMYELOCYTES 5 % (0-1); NEUTROPHIL # MANUAL DIFF 0.5 TH/MM3 (1.8-7.7); POLYS (SEG NEUTROPHILS) 29 % (16-70); WBC DIFF SAMPLE 100
[2016-12-21 18:00] LABS: KERATOCYTES OCC (NORMAL); OVALOCYTES 1+ (NORMAL); PLATELET ESTIMATE SMEAR RARE (NORMAL); PLATELET MORPHOLOGY NORMAL (NORMAL); SCAN/DIFF FINAL DIFF MANUAL; TEARDROP RBCS 1+ (NORMAL)
--- NOTE | 2016-12-21 18:16 | HHI.HP ---
[facility] Joby Bennett Do, MD Admission Diagnosis acute on chronic left leg PVD, pancytopenia Diagnoses: Chief Complaint: Leg pain Travel History International Travel<30 Days: No Contact w/Intl Traveler <30 Da: No Traveled to Known Affected Are: No History of Present Illness Patient is a 71-year-old female with known history of poorly differentiated head and neck adenocarcinoma, infiltrating ductal carcinoma, history of lung carcinoma liver cirrhosis, anxiety disorder, hypertension who for the past 2 months has been having on and off pain of the foot shooting to the right hip. Pain occursmostly with ambulation but occasionally occurs at rest. Pain so severe thid timr that prompted patient to come into the hospital and was admitted for further evaluation. CTA of the shows chronic ischemic disease. On blood work shows pancytopenia with a platelet of 17. Hemoglobin hemoglobin was 7. Last hemoglobin was 9.4. Patient's followed closely by Dr. Morgan from hematology service. She just had adjuvant chemotherapy with Adriamycin and Cytoxan about 3 weeks ago. Patient currently having pain but appears comfortable. Patient also states that the left fourth and fifth toe for the past 3 weeks now has been turning purple intermittently Review of Systems Constitutional: DENIES: Diaphoretic episodes, Fatigue, Fever, Weight gain, Weight loss, Chills, Dizziness, Change in appetite, Night Sweats Endocrine: DENIES: Abnorml menstrual pattern, Heat/cold intolerance, Polydipsia , Polyuria, Polyphagia Eyes: DENIES: Blurred vision, Diplopia, Eye inflammation, Eye pain, Vision loss , Photosensitivity, Double Vision Ears, nose, mouth, throat: DENIES: Tinnitus, Hearing loss, Vertigo, Nasal discharge, Oral lesions, Throat pain, Hoarseness, Ear Pain, Running Nose, Epistaxis, Sinus Pain, Toothache, Odynophagia Respiratory: DENIES: Apneas, Cough, Snoring, Wheezing, Hemoptysis, Sputum production, Shortness of breath Cardiovascular: DENIES: Chest pain, Palpitations, Syncope, Dyspnea on Exertion , PND, Lower Extremity Edema, Orthopnea, Claudication Gastrointestinal: DENIES: Abdominal pain, Black stools, Bloody stools, Constipation, Diarrhea, Nausea, Vomiting, Difficulty Swallowing, Anorexia Genitourinary: DENIES: Abnormal vaginal bleeding, Dysmenorrhea, Dyspareunia, Sexual dysfunction, Urinary frequency, Urinary incontinence, Urgency, Hematuria , Dysuria, Nocturia, Vaginal discharge Musculoskeletal: COMPLAINS OF: Back pain, DENIES: Joint pain, Muscle aches, Stiffness, Joint Swelling, Neck pain Integumentary: DENIES: Abnormal pigmentation, Pruritus, Rash, Nail changes, Breast masses, Breast skin changes, Nipple discharge Hematologic/lymphatic: DENIES: Bruising, Lymphadenopathy Immunologic/allergic: DENIES: Eczema, Urticaria Neurologic: DENIES: Abnormal gait, Headache, Localized weakness, Paresthesias, Seizures, Speech Problems, Tremor, Poor Balance Psychiatric: COMPLAINS OF: Anxiety Past Family Social History Past Medical History Liver cirrhosis secondary to chronic alcohol use Anxiety disorder Hypertension History of tongue carcinoma History infiltrating ductal carcinoma History of poorly differentiated adenocarcinoma head and neck. Pancytopenia Past Surgical History Bilateral mastectomy Hysterectomy Reported Medications Anastrozole 1 mg daily Xanax 0.25 mg every 8 Adderall 20 mg daily Amlodipine 5 mg daily Omeprazole 20 mg daily Vitamin D 1000 units daily Allergies: Coded Allergies: No Known Allergies (Unverified , 12/21/16) Family History Noncontributory Social History Patient continues to smoke one quarter pack per day History of chronic alcohol abuse quit a year ago He denies any history of substance abuse Physical Exam Vital Signs Vital Signs Date Time Temp Pulse Resp B/P Pulse Ox O2 Delivery O2 Flow Rate FiO2 12/21/16 17:06 70 17 121/70 100 12/21/16 16:02 78 18 151/69 100 12/21/16 16:00 100 Room Air 12/21/16 15:59 100 Room Air 12/21/16 15:22 16 12/21/16 14:05 98.1 92 18 146/69 99 Physical Exam GENERAL: in no apparent distress. SKIN: Cool and dry. HEAD: Atraumatic. Normocephalic. No temporal or scalp tenderness. EYES: Pupils equal round and reactive. Extraocular motions intact. No scleral icterus. No injection or drainage. ENT: Nose without bleeding, purulent drainage or septal hematoma. Throat without erythema, tonsillar hypertrophy or exudate. Uvula midline. Airway patent. NECK: Trachea midline. No JVD or lymphadenopathy. Supple, nontender, no meningeal signs. CARDIOVASCULAR: Regular rate and rhythm without murmurs, gallops, or rubs. RESPIRATORY: Clear to auscultation. Breath sounds equal bilaterally. No wheezes , rales, or rhonchi. GASTROINTESTINAL: Abdomen soft, non-tender, nondistended. No hepato-splenomegaly , or palpable masses. No guarding. MUSCULOSKELETAL: Extremities left fourth fifth toe with mild hyperemia dorsalis pedis palpable by Doppler NEUROLOGICAL: Awake and alert. Cranial nerves II through XII intact. Motor and sensory grossly within normal limits. Five out of 5 muscle strength in all muscle groups. Normal speech. Laboratory Laboratory Tests Test 12/21/16 15:55 White Blood Count 1.1 Red Blood Count 2.74 Hemoglobin 7.7 Hematocrit 22.7 Mean Corpuscular Volume 82.8 Mean Corpuscular Hemoglobin 28.0 Mean Corpuscular Hemoglobin 33.8 Concent Red Cell Distribution Width 26.2 Platelet Count 17 Mean Platelet Volume 10.5 Neutrophils (%) (Auto) Lymphocytes (%) (Auto) Monocytes (%) (Auto) Eosinophils (%) (Auto) Basophils (%) (Auto) Neutrophils # (Auto) Lymphocytes # (Auto) Monocytes # (Auto) Eosinophils # (Auto) Basophils # (Auto) CBC Comment AUTO DIFF Differential Total Cells 100 Counted Neutrophils % (Manual) 29 Band Neutrophils % 9 Lymphocytes % 35 Monocytes % 19 Basophils % 3 Neutrophils # (Manual) 0.5 Metamyelocytes 5 Differential Comment FINAL DIFF MANUAL Platelet Estimate RARE Platelet Morphology Comment NORMAL Tear Drop Cells 1+ Ovalocytes 1+ Keratocytes OCC Prothrombin Time 12.3 Prothromb Time International 1.1 Ratio Activated Partial 31.3 Thromboplast Time Sodium Level 137 Potassium Level 4.2 Chloride Level 104 Carbon Dioxide Level 24.4 Anion Gap 9 Blood Urea Nitrogen 15 Creatinine 0.73 Estimat Glomerular Filtration 79 Rate Random Glucose 122 Calcium Level 8.6 Magnesium Level 1.8 Total Creatine Kinase 22 Troponin I LESS THAN 0.02 Result Diagram: 12/21/16 1555 12/21/16 1555 Imaging Last Impressions Aorta w/Runoff CTA 12/21/16 1546 Signed Impressions: Service Date/Time: Wednesday, December 21, 2016 16:15 - CONCLUSION: 1. 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 2. Right lower extremity shows severe outflow disease. There is chronic occlusion of the femoropopliteal bypass as well as the three affiliated SFA. Reconstitution of the [id number] popliteal artery. Diffuse moderate trifurcation disease. 3. Left lower extremity has chronic occlusion of the common femoral artery and outflow vessels. There is reconstitution of a heavily diseased above the knee popliteal artery. Diffuse moderate disease of the trifurcation vessels. 4. The patient's disease is not amenable to endovascular repair. 5. Cirrhosis. 6. Splenomegaly. 7. Colonic diverticulosis. Jan Ferraro Jr., MD Chest X-Ray 12/21/16 1538 Signed Impressions: Service Date/Time: Wednesday, December 21, 2016 16:04 - CONCLUSION: No acute cardiopulmonary disease. Paulie Carey MD Foot X-Ray 12/21/16 0000 Signed Impressions: Service Date/Time: Wednesday, December 21, 2016 14:32 - CONCLUSION: Mild arthritic changes. Ignacio Hampton MD Assessment and Plan Assessment and Plan 71-year-old female presenting with chronic PVD with Left foot fourth fifth ischemic toes ischemic changes Patient seen by vascular surgery no plan for any intervention. Percocet when necessary for pain Pancytopenia-likely BM suppression from recent chemotherapy with history of H and N carcinoma,Infiltrating left breast carcinoma History of liver cirrhosis patient states she had a colonoscopy done within the past 6 months which were negative except for polyps. no signs of active bleeding. 1 unit RBC transfusion. Will transfuse 1 unit packed platelets. Will consult her youth corrections officer Dr. Morgan for recommendation History of hypertension. continue on Nadolol 20 mg daily. Hold Amlodipine History of breast cancer continue anastrozole 1 mg daily Continue on PPI for GI prophylaxis Physician Certification 2 Midnight Certification Type: Admission for Inpatient Services Order for Inpatient Services The services are ordered in accordance with Medicare regulations or non- Medicare payer requirements, as applicable. In the case of services not specified as inpatient-only, they are appropriately provided as inpatient services in accordance with the 2-midnight benchmark. Estimated LOS (days): 3 days is the estimated time the patient will need to remain in the hospital, assuming treatment plan goals are met and no additional complications. Post-Hospital Plan: Not yet determined Yehuda Corona MD December 21, 2016 18:16 Yehuda Coroan MD December 21, 2016 18:16
[2016-12-21] MEDS ORDERED: PROCHLORPERAZINE MALEATE 10 MG TAB PO PRN (18:30)
[2016-12-21] MEDS ORDERED: HEPARIN SODIUM - IV 10,000 UNITS/10 ML VIAL IV PRN ×2 (21:45)
--- NOTE | 2016-12-21 22:28 | MB ---
Cc: NETO MERCEDES,HALEY SON,ALEJANDRO Suarez M.D. DATE OF CONSULTATION 12/21/2016 Oncology new patient consultative summary DATE OF [address] Corona[address] CHIEF COMPLAINT [address] Corona requested consultation for Ms. Watters regarding breast cancer and pancytopenia in a patient presenting with acute peripheral vascular disease. HISTORY OF THE PRESENT ILLNESS Ms. Watters is a 71-year-old woman with a complex past medical history. She has synchronous cancer. She had a locally advanced left breast cancer in addition to head and neck cancer. 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 She completed concurrent chemotherapy and radiation. While receiving treatment for a neck cancer she was placed on aromatase inhibitor. She had a concurrent locally advanced breast cancer. She underwent mastectomy on the left which showed a moderately differentiated ductal carcinoma, two inframammary lymph nodes were negative for carcinoma. [place] lymph node confirmed 6/10 lymph nodes positive. The tumor measured 2.5 cm in greatest dimension with extensive DCIS. The deep margins were positive for invasive carcinoma. There is extensive lymphovascular invasion. Her course was further complicated by liver cirrhosis, hepatitis, fibrosis with normal liver function. She continues to smoke a quarter pack a day. She is a former alcoholic. Ms. Watters describes a long history of symptoms in the left foot. She describes the left foot having cold symptoms. She developed more acute symptoms of feeling pain in her foot down to her left leg which started swelling just 3 days ago and has progressed to acute symptoms. This is what prompted her to come into the emergency room today. She was seen by ruy Ramos and subsequently by vascular surgeon, Dr. Vogel. She has multilevel peripheral arterial disease by CTA. She is not a surgical candidate for bypass procedure at this time. He recommended physical therapy and possible pain management. During the ER evaluation she was found to have pancytopenia having received chemotherapy less than 14 days ago. Her white count was 1.1, hemoglobin of 7.7, platelet count of 17,000. Pre chemo her platelet count was 99,000, hemoglobin 9.4. Her renal function is normal but creatinine had increased to 0.7 higher than her baseline. Her liver function was previously normal. Other evaluation included troponin I and total creatinine kinase was normal. Hematology/Oncology is consulted for her breast cancer. PAST MEDICAL HISTORY 1. Liver cirrhosis. 2. Alcohol abuse. 3. Anxiety disorder. 4. Hypertension. 5. 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 6. Left breast cancer. 7. Pancytopenia. 8. Peripheral arterial disease. PAST SURGICAL HISTORY 1. Bilateral mastectomy. 2. Hysterectomy. 3. Head and neck cancer biopsy. ALLERGIES NO KNOWN DRUG ALLERGIES. SOCIAL HISTORY Continues to smoke one-quarter pack a day. Denies any alcohol use. Denies any illicit drug use. FAMILY HISTORY No history of carcinoma in the family. Sister had recent appendectomy. PHYSICAL EXAMINATION VITAL SIGNS: Temperature 98.8, heart rate 73, respiratory 18, blood pressure 99/53, saturation 98%. GENERAL: Ms. Watters is a well-developed, well-nourished woman who looks her stated age. HEENT: Her pupils are round, reactive to light and accommodation. Oropharynx is dry. NECK: With chronic post inflammatory hyperpigmented changes. There is dry skin. No adenopathy. LUNGS: Are diminished both sides. CARDIOVASCULAR: Exam reveals normal rate, rhythm. ABDOMEN: Benign. Peg tube site is healed. EXTREMITIES: Lower extremity with no edema. Thready pulse noted on the right. Pulses are not appreciated on the left. Her toes are cool. The foot for the most part is warm. There is a dusky discoloration of the fourth and fifth digits. There is some mottling of the skin on the dorsum of the foot on the left. LABORATORY DATA Hemoglobin of 7.7 and platelet count 17,000, white blood cell count 1.1. BUN of 15, creatinine 0.73. ASSESSMENT/PLAN Ms. Watters is a 71-year-old woman with multiple medical problems. She has history of alcoholic liver disease, peripheral vascular disease, fibrosis, chronic tobacco use and former alcoholic. She is diagnosed with synchronous cancer, head and neck cancer treated with concurrent chemotherapy and radiation, and a locally advanced left breast cancer. She has had definitive surgery for breast cancer and is receiving adjuvant systemic chemotherapy. Her last chemotherapy was less than 14 days ago. She received Neulasta support Bovie on body injector. I discussed with Ms. Watters that the cytopenias are likely related to her chemotherapy. I suspect some of the decrease in platelets is due to consumption to her peripheral vascular disease. I recommend transfusion of platelets and check a post platelet transfusion count. I am an able to offer her antiplatelet in light of the risk of bleeding when her platelets are only 17,000. I suspect we can resume unfractionated heparin or low-molecular weight heparin once her platelet count is above 20,000. She has no evidence of bleeding but in light of her history of cirrhosis I suspect that she may have bleeding tendency in light of coagulopathy. Her baseline PT/PTT are elevated. She is on unfractionated heparin by the primary team. She has been seen by vascular surgery who could offer her no surgical intervention at present. Symptomatic relief is provided. We will wait for recovery of her counts to institute antiplatelet and antithrombotic therapy. In the meantime transfusion support is in order. She is being transfused red blood cells at present. Platelets have been ordered. A post platelet transfusion platelet count will be checked. She will resume care with Dr. Mercedes in the morning. We will monitor for fevers. She is neutropenic but is afebrile. I anticipate that her counts will recover quickly as she received Neulasta support. Her questions were answered to her satisfaction. Alejandro Son MD RAD/KK /9:07 PM /10:07 PM
[2016-12-21] MEDS: ACETAMINOPHEN/HYDROcodone 325 MG/5 MG TAB PO PRN (23:13)
[2016-12-22] VITALS (7 sets, daily range): BP systolic 100–136; BP diastolic 53–64; PULSE 63–75; RESP 16–18; TEMP 97.7–98.2; O2SAT 95–100
[2016-12-22 01:24] LABS: APTT (PATIENT) 30.6 SEC (24.3-30.1)
[2016-12-22 08:13] LABS: MEAN CELL VOLUME 83.8 FL (80.0-100.0); MEAN CORPUSCULAR HEMOGLOBIN 29.2 PG (27.0-34.0); MEAN CORPUSCULAR HGB CONC 34.8 % (32.0-36.0); PLATELET COUNT 42 TH/MM3 (150-450); RED BLOOD COUNT 2.62 MIL/MM3 (4.00-5.30); RED CELL DISTRIBUTION WIDTH 25.4 % (11.6-17.2); WHITE BLOOD COUNT 1.3 TH/MM3 (4.0-11.0)
[2016-12-22 08:14] LABS: REVIEW FLAG FINAL
[2016-12-22] MEDS: NADOLOL 20 MG TAB PO SCH (09:00)
[2016-12-22] MEDS: ACETAMINOPHEN/HYDROcodone 325 MG/5 MG TAB PO PRN ×2 (10:18→18:07)
[2016-12-22] MEDS: PANTOPRAZOLE SOD 20 MG DELAYED RELEASE TAB PO SCH (10:18)
[2016-12-22] MEDS: CHOLECALCIFEROL (VIT D3) 1000 UNIT TAB PO SCH (10:18)
--- NOTE | 2016-12-22 10:59 | HHI.PR ---
Subjective Remarks occasional left foot pain, moves all extremities spontaeously and equal pain controlled Objective Vitals Vital Signs Date Time Temp Pulse Resp B/P Pulse Ox O2 Delivery O2 Flow Rate FiO2 12/22/16 08:33 97.8 69 18 103/58 99 12/22/16 04:43 97.7 69 17 100/56 95 12/22/16 04:00 Room Air 12/22/16 00:00 98.2 74 18 136/64 97 12/22/16 00:00 Room Air 12/21/16 23:30 98.2 74 18 136/64 97 12/21/16 23:15 Room Air 12/21/16 23:15 Room Air 12/21/16 23:00 73 12/21/16 22:36 96.5 71 16 113/57 98 12/21/16 21:36 79 18 136/64 100 Room Air 12/21/16 20:41 99.2 76 18 123/58 100 Room Air 12/21/16 20:26 98.9 73 18 99/53 98 Room Air 12/21/16 19:45 98.9 70 18 102/51 100 Room Air 12/21/16 19:28 69 18 112/53 100 12/21/16 19:00 98.4 72 16 118/56 100 Room Air 12/21/16 18:54 99.0 69 15 106/59 100 Room Air 12/21/16 18:47 98.0 74 17 117/58 100 Room Air 12/21/16 17:06 70 17 121/70 100 12/21/16 16:02 78 18 151/69 100 12/21/16 16:00 100 Room Air 12/21/16 15:59 100 Room Air 12/21/16 15:22 16 12/21/16 14:05 98.1 92 18 146/69 99 I/O 12/21/16 12/21/16 12/21/16 12/22/16 12/22/16 12/22/16 07:00 15:00 23:00 07:00 15:00 23:00 Intake Total 380 ml Output Total 400 ml Balance -20 ml Intake Oral 380 ml Output Urine Total 400 ml # Bowel Movements 2 Result Diagram: 12/22/16 0750 12/21/16 1555 Imaging Last Impressions Aorta w/Runoff CTA 12/21/16 2217 Signed Impressions: Service Date/Time: Wednesday, December 21, 2016 16:15 - CONCLUSION: 1. 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 2. Right lower extremity shows severe outflow disease. There is chronic occlusion of the femoropopliteal bypass as well as the [place] SFA. Reconstitution of the [id number] popliteal artery. Diffuse moderate trifurcation disease. 3. Left lower extremity has chronic occlusion of the common femoral artery and outflow vessels. There is reconstitution of a heavily diseased above the knee popliteal artery. Diffuse moderate disease of the trifurcation vessels. 4. The patient's disease is not amenable to endovascular repair. 5. Cirrhosis. 6. Splenomegaly. 7. Colonic diverticulosis. Jan Ferraro Jr., MD Chest X-Ray 12/21/16 1538 Signed Impressions: Service Date/Time: Wednesday, December 21, 2016 16:04 - CONCLUSION: No acute cardiopulmonary disease. Paulie Carey MD Foot X-Ray 12/21/16 0000 Signed Impressions: Service Date/Time: Wednesday, December 21, 2016 14:32 - CONCLUSION: Mild arthritic changes. Ignacio Hampton MD Objective Remarks awake and alert, oriented x 3 anicteric lungs clear regular rhythm abdomen soft, nontender extremities no edema, no calf swelling or tenderness, no pedal edema A/P Assessment and Plan 71-year-old female presenting with chronic PVD with Left foot fourth fifth ischemic toes ischemic changes- Patient seen by vascular surgery no plan for any intervention. Percocet when necessary for pain Pancytopenia-likely BM suppression from recent chemotherapy with history of head and neck and infiltrating ductal carcinoma History of liver cirrhosis patient states she had a colonoscopy done within the past 6 months which were negative except for polyps. no signs of active bleeding. S/P 1 unit RBC and 1 pack platelet transfusion Hematology ff- will defer to Dr. Mercedes for further blood product tranfusion orders History of hypertension. continue on Nadolol 20 mg daily. Hold Amlodipine History of breast cancer continue anastrozole 1 mg daily Continue on PPI for GI prophylaxis Yehuda Corona MD December 22, 2016 10:59
--- NOTE | 2016-12-22 17:38 | PD.VS.PN ---
Subjective Subjective/Hospital Course left foot less numb and painful. Objective Vitals/I&O Date Time Temp Pulse Resp B/P Pulse Ox O2 Delivery O2 Flow Rate FiO2 12/22/16 16:03 97.9 69 17 103/55 100 12/22/16 12:14 98.2 63 18 111/53 99 12/22/16 08:33 97.8 69 18 103/58 99 12/22/16 08:00 70 12/22/16 08:00 Room Air 12/22/16 04:43 97.7 69 17 100/56 95 12/22/16 04:00 Room Air 12/22/16 00:00 98.2 74 18 136/64 97 12/22/16 00:00 Room Air 12/21/16 23:30 98.2 74 18 136/64 97 12/21/16 23:15 Room Air 12/21/16 23:15 Room Air 12/21/16 23:00 73 12/21/16 22:36 96.5 71 16 113/57 98 12/21/16 21:36 79 18 136/64 100 Room Air 12/21/16 20:41 99.2 76 18 123/58 100 Room Air 12/21/16 20:26 98.9 73 18 99/53 98 Room Air 12/21/16 19:45 98.9 70 18 102/51 100 Room Air 12/21/16 19:28 69 18 112/53 100 12/21/16 19:00 98.4 72 16 118/56 100 Room Air 12/21/16 18:54 99.0 69 15 106/59 100 Room Air 12/21/16 18:47 98.0 74 17 117/58 100 Room Air 12/22/16 12/22/16 12/22/16 07:00 15:00 23:00 Intake Total 380 ml 840 ml Output Total 400 ml Balance -20 ml 840 ml Physical Exam right PT monophasic left PT faint monophasic Laboratory Laboratory Tests Test 12/21/16 12/21/16 12/22/16 12/22/16 17:33 18:17 00:48 07:50 Blood Type A POSITIVE Antibody Screen NEGATIVE Crossmatch Leukocyte-Reduced Red Blood Cells Blood Bank Comment Platelet Count 52 42 Activated Partial 30.6 Thromboplast Time White Blood Count 1.3 Red Blood Count 2.62 Hemoglobin 7.7 Hematocrit 22.0 Mean Corpuscular Volume 83.8 Mean Corpuscular Hemoglobin 29.2 Mean Corpuscular Hemoglobin 34.8 Concent Red Cell Distribution Width 25.4 Mean Platelet Volume 7.6 Imaging Last 48 hours Impressions Aorta w/Runoff CTA 12/21/16 1549 Signed Impressions: Service Date/Time: Wednesday, December 21, 2016 16:15 - CONCLUSION: 1. 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 2. Right lower extremity shows severe outflow disease. There is chronic occlusion of the femoropopliteal bypass as well as the [place] SFA. Reconstitution of the [id number] popliteal artery. Diffuse moderate trifurcation disease. 3. Left lower extremity has chronic occlusion of the common femoral artery and outflow vessels. There is reconstitution of a heavily diseased above the knee popliteal artery. Diffuse moderate disease of the trifurcation vessels. 4. The patient's disease is not amenable to endovascular repair. 5. Cirrhosis. 6. Splenomegaly. 7. Colonic diverticulosis. Jan Ferraro Jr., MD Chest X-Ray 12/21/16 1538 Signed Impressions: Service Date/Time: Wednesday, December 21, 2016 16:04 - CONCLUSION: No acute cardiopulmonary disease. Paulie Carey MD Foot X-Ray 12/21/16 0000 Signed Impressions: Service Date/Time: Wednesday, December 21, 2016 14:32 - CONCLUSION: Mild arthritic changes. Ignacio Hampton MD Assessment and Plan Assessment: (1) PAD (peripheral artery disease) Status: Acute (2) Liver cirrhosis Status: Acute (3) Breast cancer, left Status: Acute Plan This is a pleasant 71 year old female with chronic critical limb ischemia. She has had rest pain for a FEW YEARS and has had short distance claudication. We discussed that she has had episodes this bad in the past where she was affected after long day of ambulation (left greater than right severe thigh to calf pain) Improved today. Patient is getting active chemotx for breast cancer (pancytopenia) Would no be able to tolerate a major vascular surgical reconstruction (risk of infection and coagulopathy) would be significant. She may be a surgical candidate after chemotherapy (6 weeks) when she can follow up. Pain medication and pletal may be possible options in the interim. I discussed this with the patient. She can follow up in our office in 6 weeks. Will arrange for this. Francisco J Vogel DO, FACS [facility] /Francisco J Ulrich DO December 22, 2016 17:38
--- NOTE | 2016-12-22 18:02 | EKG ---
Date Performed: 12/21/2016 Time Performed: 15:42:59 PTAGE: 71 years EKG: Sinus rhythm NORMAL ECG INTERPRETATION BASED ON A DEFAULT AGE OF 40 YEARS Compared to prior tracing no significan t change. PREVIOUS TRACING on 09/14/16. DOCTOR: Paras Ambrocio Interpretating Date/Time 12/22/2016 18:01:31
[2016-12-22] MEDS: ALPRAZolam 0.25 MG TAB PO PRN (23:11)
--- NOTE | 2016-12-22 23:17 | PD.ONC.PN ---
Subjective Subjective Remarks sitting up less pain in LE no dyspnea no fevers/cough got out of the bed on her own. d/w rn Objective Data Date Time Temp Pulse Resp B/P Pulse Ox O2 Delivery O2 Flow Rate FiO2 12/22/16 20:00 98.0 75 16 109/57 100 12/22/16 16:03 97.9 69 17 103/55 100 12/22/16 12:14 98.2 63 18 111/53 99 12/22/16 08:33 97.8 69 18 103/58 99 12/22/16 08:00 70 12/22/16 08:00 Room Air 12/22/16 04:43 97.7 69 17 100/56 95 12/22/16 04:00 Room Air 12/22/16 00:00 98.2 74 18 136/64 97 12/22/16 00:00 Room Air 12/21/16 23:30 98.2 74 18 136/64 97 12/21/16 23:15 Room Air 12/21/16 23:15 Room Air 12/22/16 12/22/16 12/22/16 07:00 15:00 23:00 Intake Total 380 ml 840 ml Output Total 400 ml Balance -20 ml 840 ml Result Diagram: 12/22/16 0750 12/21/16 1555 Laboratory Results Laboratory Tests Test 12/22/16 12/22/16 00:48 07:50 Platelet Count 52 TH/MM3 42 TH/MM3 Activated Partial 30.6 SEC Thromboplast Time White Blood Count 1.3 TH/MM3 Red Blood Count 2.62 MIL/MM3 Hemoglobin 7.7 GM/DL Hematocrit 22.0 % Mean Corpuscular Volume 83.8 FL Mean Corpuscular Hemoglobin 29.2 PG Mean Corpuscular Hemoglobin 34.8 % Concent Red Cell Distribution Width 25.4 % Mean Platelet Volume 7.6 FL Administered Medications Medications (Trade) Dose Ordered Sig/Maria Luisa Route PRN Reason Start Time Stop Time Status Last Admin Dose Admin Cholecalciferol (Vitamin D3) 1,000 units DAILY PO 12/22/16 09:00 12/22/16 10:18 Acetaminophen/ Hydrocodone Bitart ([place] 5-325 Mg) 1 tab Q6H PRN PO PAIN SCALE 1 TO 10 12/21/16 18:30 12/22/16 18:07 Pantoprazole Sodium (Protonix) 20 mg DAILY PO 12/22/16 09:00 12/22/16 10:18 Objective Remarks GENERAL: nad. cachectic SKIN: Warm and dry.. NECK: Supple, trachea midline. No JVD or lymphadenopathy. LYMPHATIC: No adenopathy. CARDIOVASCULAR: Regular rate and rhythm without murmurs. RESPIRATORY: Breath sounds equal bilaterally. No accessory muscle use. GASTROINTESTINAL: Abdomen soft, non-tender, nondistended. EXTREMITIES: No cyanosis, or edema. Assessment/Plan Problem List: (1) Tongue malignant neoplasm Status: Acute (2) Pancytopenia Status: Acute (3) Liver cirrhosis Status: Acute (4) PAD (peripheral artery disease) Status: Acute (5) Breast cancer, left Status: Acute (6) Anemia Status: Acute (7) Thrombocytopenia Status: Acute Assessment 71 y/o with two synchronous malignancies, head and neck cancer and left sided stage III breast cancer who presents with Leg pain 1. Extensive peripheral vascular disease - will benefit from anti-platelet therapy. Will start on ASA atleast for now - Vacular surgery recommending medical management at this time 2. Thrombocytopenia 2/2 to chemotherapy - Transfuse to keep plt > 20 3. Acute anemia due to chemotherapy and also a history of iron deficiency - will give iron infusion - Transfuse pRBC if Hb drops below 7.5 4. Stage III left breast cancer - outpatient treatment 5. Malnutrition and decreased oral intake - encourage oral intake. - Remeron 15 mg po daily - Boost or Ensure TID with meals - Dietary consult 6. Head and Neck cancer: under observation at this time. Justus Mercedes MD December 22, 2016 23:17
[2016-12-23] VITALS (12 sets, daily range): BP systolic 103–141; BP diastolic 52–61; PULSE 65–86; RESP 16–18; TEMP 97.2–98.5; O2SAT 95–100
[2016-12-23 06:57] LABS: MEAN CELL VOLUME 83.7 FL (80.0-100.0); MEAN CORPUSCULAR HEMOGLOBIN 28.6 PG (27.0-34.0); MEAN CORPUSCULAR HGB CONC 34.2 % (32.0-36.0); PLATELET COUNT 26 TH/MM3 (150-450); RED BLOOD COUNT 2.43 MIL/MM3 (4.00-5.30); RED CELL DISTRIBUTION WIDTH 24.9 % (11.6-17.2); WHITE BLOOD COUNT 1.4 TH/MM3 (4.0-11.0)
[2016-12-23 07:05] LABS: HEMO FLAGS AUTO DIFF
[2016-12-23 07:10] LABS: HEMATOCRIT 20.4 % (35.0-46.0)
[2016-12-23 07:21] LABS: ALKALINE PHOSPHATASE 96 U/L (45-117); ALT (GPT) 9 U/L (10-53); ANION GAP 9 MEQ/L (5-15); AST (GOT) 13 U/L (15-37); BICARBONATE 27.1 MEQ/L (21.0-32.0); BLOOD UREA NITROGEN 10 MG/DL (7-18); CHLORIDE 106 MEQ/L (98-107); GLOMERULAR FILTRATION RATE 114 ML/MIN (>89); POTASSIUM 3.4 MEQ/L (3.5-5.1); SODIUM (NA) 142 MEQ/L (136-145); TOTAL BILIRUBIN ADULT 0.6 MG/DL (0.2-1.0)
[2016-12-23 08:19] LABS: BANDS 3 % (0-6); BASOPHILS 1 % (0-2); DOHLE BODIES PRESENT (NONE SEEN); NEUTROPHIL # MANUAL DIFF 0.8 TH/MM3 (1.8-7.7); PLATELET ESTIMATE SMEAR LOW (NORMAL); PLATELET MORPHOLOGY NORMAL (NORMAL); POLYS (SEG NEUTROPHILS) 57 % (16-70); SCAN/DIFF FINAL DIFF MANUAL; WBC DIFF SAMPLE 100
[2016-12-23 08:20] LABS: OVALOCYTES 1+ (NORMAL)
[2016-12-23] MEDS: ASCORBIC ACID 500 MG TAB PO SCH (08:55)
[2016-12-23] MEDS: NADOLOL 20 MG TAB PO SCH (08:55)
[2016-12-23] MEDS: CHOLECALCIFEROL (VIT D3) 1000 UNIT TAB PO SCH (08:55)
[2016-12-23] MEDS: PANTOPRAZOLE SOD 20 MG DELAYED RELEASE TAB PO SCH (08:55)
[2016-12-23] MEDS: ASPIRIN 81 MG CHEW TAB PO SCH (08:55)
[2016-12-23] MEDS: FOLIC ACID 1 MG TAB PO SCH (08:55)
[2016-12-23] MEDS: ALPRAZolam 0.25 MG TAB PO PRN (08:56)
[2016-12-23] MEDS: ACETAMINOPHEN/HYDROcodone 325 MG/5 MG TAB PO PRN ×3 (08:56→23:48)
--- NOTE | 2016-12-23 10:06 | HHI.PR ---
Subjective Remarks afebrile, no chills complains of oral pain no dysphagia at this time no diarrhea no chest pains or shortness of breath Objective Vitals Vital Signs Date Time Temp Pulse Resp B/P Pulse Ox O2 Delivery O2 Flow Rate FiO2 12/23/16 08:00 98.5 83 16 110/57 97 12/23/16 04:00 98.2 65 16 112/55 95 12/23/16 00:00 97.2 69 16 111/57 100 12/22/16 20:00 75 12/22/16 20:00 Room Air 12/22/16 20:00 98.0 75 16 109/57 100 12/22/16 16:03 97.9 69 17 103/55 100 12/22/16 12:14 98.2 63 18 111/53 99 I/O 12/22/16 12/22/16 12/22/16 12/23/16 12/23/16 12/23/16 07:00 15:00 23:00 07:00 15:00 23:00 Intake Total 380 ml 840 ml 360 ml 240 ml Output Total 400 ml Balance -20 ml 840 ml 360 ml 240 ml Intake Oral 380 ml 840 ml 360 ml 240 ml Output Urine Total 400 ml # Voids 3 2 3 # Bowel Movements 2 2 1 1 Result Diagram: 12/23/16 0630 12/23/16 0630 Imaging Last Impressions Aorta w/Runoff CTA 12/21/16 1549 Signed Impressions: Service Date/Time: Wednesday, December 21, 2016 16:15 - CONCLUSION: 1. 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 2. Right lower extremity shows severe outflow disease. There is chronic occlusion of the femoropopliteal bypass as well as the [place] SFA. Reconstitution of the [id number]-[id number]-sstm popliteal artery. Diffuse moderate trifurcation disease. 3. Left lower extremity has chronic occlusion of the common femoral artery and outflow vessels. There is reconstitution of a heavily diseased above the knee popliteal artery. Diffuse moderate disease of the trifurcation vessels. 4. The patient's disease is not amenable to endovascular repair. 5. Cirrhosis. 6. Splenomegaly. 7. Colonic diverticulosis. Jan Ferraro Jr., MD Chest X-Ray 12/21/16 1538 Signed Impressions: Service Date/Time: Wednesday, December 21, 2016 16:04 - CONCLUSION: No acute cardiopulmonary disease. Paulie Carey MD Foot X-Ray 12/21/16 0000 Signed Impressions: Service Date/Time: Wednesday, December 21, 2016 14:32 - CONCLUSION: Mild arthritic changes. Ignacio Hampton MD Objective Remarks awake and alert, oriented x 3 anicteric, oral mucosal with thrush lungs clear regular rhythm abdomen soft, nontender extremities no edema, no calf swelling or tenderness, no pedal edema neuro exam- unremarkable A/P Assessment and Plan 71-year-old female presenting with chronic PVD with Left foot fourth fifth ischemic toes ischemic changes- improved Patient seen by vascular surgery no plan for any intervention. ASA daily. Percocet when necessary for pain Pancytopenia-likely BM suppression from recent chemotherapy with history of head and neck and infiltrating ductal carcinoma. History of liver cirrhosis Iron deficiency- low iron stores thrombocytopenia - improved Neutropenia- WBC ct up a little. afebrile. if spikes a fever start IV Cefepime give IV Iron daily x 3 Keep hemoglobin > 7.5, Keep platelet > 20 per Hematology recommendation patient states she had a colonoscopy done within the past 6 months which were negative except for polyps. no signs of active bleeding. S/P 1 unit RBC and 1 pack platelet transfusion give another unit of RBC today 12/23 Hematology ff- - Dr. Mercedes ff History of hypertension. continue on Nadolol 20 mg daily. Hold Amlodipine History of breast cancer continue anastrozole 1 mg daily Hypokalemia- replace with po KCL Oral sores- Magic mouthwash tid inform her if starts complaining of dysphagia or odynophagia to let us know- may need EGD Continue on PPI for GI prophylaxis Yehuda Corona MD December 23, 2016 10:06
[2016-12-23] MEDS ORDERED: POTASSIUM CHLORIDE 10 MEQ CONTROLLED RELEASE TAB PO ONE (10:15)
[2016-12-23] MEDS ORDERED: diphenhydrAMINE HCL 25 MG CAP PO ONE (12:30)
[2016-12-23] MEDS ORDERED: ACETAMINOPHEN 325 MG TAB PO ONE (12:30)
[2016-12-23] MEDS: NYSTAT/DIPHENHY/LIDO MOUTHWASH (Adult) 120ML SWISH-SWAL SCH ×3 (12:34→21:04)
[2016-12-23] MEDS: IRON SUCROSE INJ 200 MG in SODIUM CHLORIDE 0.9% INJ 100 ML IV SCH (16:22)
[2016-12-24] VITALS (8 sets, daily range): BP systolic 101–142; BP diastolic 56–82; PULSE 63–90; RESP 18–20; TEMP 97.7–100.1; O2SAT 93–98
--- NOTE | 2016-12-24 00:12 | PD.ONC.PN ---
Subjective Subjective Remarks feels weak. getting pRBC tranfusion no bleeding leg pain better denies any dyspnea d/w rn Objective Data Date Time Temp Pulse Resp B/P Pulse Ox O2 Delivery O2 Flow Rate FiO2 12/23/16 20:37 98.0 68 18 125/61 99 12/23/16 19:15 97.9 69 16 120/59 99 12/23/16 18:29 97.9 69 18 103/52 99 12/23/16 16:00 97.9 69 16 116/57 100 12/23/16 15:30 97.9 69 16 116/57 100 12/23/16 12:40 97.3 69 16 111/59 100 12/23/16 12:21 98.1 70 16 114/61 100 12/23/16 12:00 98.1 70 16 141/61 100 12/23/16 11:37 86 12/23/16 08:00 96 Room Air 12/23/16 08:00 98.5 83 16 110/57 97 12/23/16 04:00 98.2 65 16 112/55 95 Result Diagram: 12/23/16 0630 12/23/16 0630 Laboratory Results Laboratory Tests Test 12/23/16 12/23/16 12/23/16 06:30 07:56 10:39 White Blood Count 1.4 TH/MM3 Red Blood Count 2.43 MIL/MM3 Hemoglobin 7.0 GM/DL Hematocrit 20.4 % Mean Corpuscular Volume 83.7 FL Mean Corpuscular Hemoglobin 28.6 PG Mean Corpuscular Hemoglobin 34.2 % Concent Red Cell Distribution Width 24.9 % Platelet Count 26 TH/MM3 Mean Platelet Volume 7.9 FL Neutrophils (%) (Auto) % Lymphocytes (%) (Auto) % Monocytes (%) (Auto) % Eosinophils (%) (Auto) % Basophils (%) (Auto) % Neutrophils # (Auto) TH/MM3 Lymphocytes # (Auto) TH/MM3 Monocytes # (Auto) TH/MM3 Eosinophils # (Auto) TH/MM3 Basophils # (Auto) TH/MM3 CBC Comment AUTO DIFF Differential Total Cells 100 Counted Neutrophils % (Manual) 57 % Band Neutrophils % 3 % Lymphocytes % 25 % Monocytes % 14 % Basophils % 1 % Neutrophils # (Manual) 0.8 TH/MM3 Differential Comment FINAL DIFF MANUAL Dohle Bodies PRESENT Platelet Estimate LOW Platelet Morphology Comment NORMAL Ovalocytes 1+ Haptoglobin 166 MG/DL Fibrinogen 341 mg/dL Sodium Level 142 MEQ/L Potassium Level 3.4 MEQ/L Chloride Level 106 MEQ/L Carbon Dioxide Level 27.1 MEQ/L Anion Gap 9 MEQ/L Blood Urea Nitrogen 10 MG/DL Creatinine 0.53 MG/DL Estimat Glomerular Filtration 114 ML/MIN Rate Random Glucose 90 MG/DL Calcium Level 8.7 MG/DL Total Bilirubin 0.6 MG/DL Aspartate Amino Transf 13 U/L (AST/SGOT) Alanine Aminotransferase 9 U/L (ALT/SGPT) Alkaline Phosphatase 96 U/L Lactate Dehydrogenase 111 U/L Total Protein 5.3 GM/DL Albumin 2.6 GM/DL Blood Type A POSITIVE Crossmatch Leukocyte-Reduced Red Blood Cells Blood Bank Comment Administered Medications Medications (Trade) Dose Ordered Sig/Maria Luisa Route PRN Reason Start Time Stop Time Status Last Admin Dose Admin Alprazolam (Xanax) 0.25 mg Q8H PRN PO ANXIETY 12/21/16 18:30 12/23/16 08:56 Cholecalciferol (Vitamin D3) 1,000 units DAILY PO 12/22/16 09:00 12/23/16 08:55 Acetaminophen/ Hydrocodone Bitart ([place] 5-325 Mg) 1 tab Q6H PRN PO PAIN SCALE 1 TO 10 12/21/16 18:30 12/23/16 23:48 Nadolol (Corgard) 20 mg DAILY PO 12/22/16 09:00 12/23/16 08:55 Pantoprazole Sodium (Protonix) 20 mg DAILY PO 12/22/16 09:00 12/23/16 08:55 Aspirin 81 mg 81 mg DAILY PO 12/23/16 09:00 12/23/16 08:55 Iron Sucrose/ Sodium Chloride (Venofer Inj/NS Inj) 110 ml @ 110 mls/hr DAILY IV 12/23/16 09:00 12/25/16 09:59 12/23/16 16:22 Ascorbic Acid (Vitamin C) 500 mg DAILY PO 12/23/16 09:00 12/23/16 08:55 Folic Acid (Folate) 1 mg DAILY PO 12/23/16 09:00 12/23/16 08:55 Multi-Ingredient Mouthwash/Gargle (Magic Mouthwash Adult Liq) 10 ml QID SWISH-SWAL 12/23/16 10:15 12/23/16 21:04 Objective Remarks GENERAL: ill appearing SKIN: Warm and dry.. NECK: Supple, trachea midline. No JVD or lymphadenopathy. LYMPHATIC: No adenopathy. CARDIOVASCULAR: Regular rate and rhythm without murmurs. RESPIRATORY: Breath sounds equal bilaterally. No accessory muscle use. GASTROINTESTINAL: Abdomen soft, non-tender, nondistended. EXTREMITIES: No cyanosis, or edema. Assessment/Plan Problem List: (1) Tongue malignant neoplasm Status: Acute (2) Pancytopenia Status: Acute (3) Liver cirrhosis Status: Acute (4) PAD (peripheral artery disease) Status: Acute (5) Breast cancer, left Status: Acute (6) Anemia Status: Acute (7) Thrombocytopenia Status: Acute Assessment 71 y/o with two synchronous malignancies, head and neck cancer and left sided stage III breast cancer who presents with Leg pain 1. Extensive peripheral vascular disease - will benefit from anti-platelet therapy. on ASA for now - Vacular surgery recommending medical management at this time 2. Thrombocytopenia 2/2 to chemotherapy - 1 unit of platelets today 3. Acute anemia due to chemotherapy and also a history of iron deficiency - getting keven infusion - Transfuse pRBC if Hb drops below 7.5 4. Stage III left breast cancer - outpatient treatment 5. Malnutrition and decreased oral intake - encourage oral intake. - Remeron 15 mg po daily - Boost or Ensure TID with meal 6. Head and Neck cancer: under observation at this time. Justus Mercedes MD December 24, 2016 00:12
[2016-12-24] MEDS: ACETAMINOPHEN/HYDROcodone 325 MG/5 MG TAB PO PRN ×2 (05:59→20:53)
[2016-12-24 06:50] LABS: HEMATOCRIT 23.6 % (35.0-46.0); MEAN CELL VOLUME 84.2 FL (80.0-100.0); MEAN CORPUSCULAR HGB CONC 34.5 % (32.0-36.0); PLATELET COUNT 44 TH/MM3 (150-450); RED CELL DISTRIBUTION WIDTH 22.9 % (11.6-17.2); WHITE BLOOD COUNT 2.4 TH/MM3 (4.0-11.0)
[2016-12-24 07:00] LABS: REVIEW FLAG FINAL
--- NOTE | 2016-12-24 08:08 | PD.ONC.PN ---
Subjective Subjective Remarks Afebrile Feeling Stronger Has no complaints States "My feet are warmer" Objective Data Date Time Temp Pulse Resp B/P Pulse Ox O2 Delivery O2 Flow Rate FiO2 12/24/16 04:00 98.2 63 18 101/56 95 12/24/16 00:30 98.1 64 18 134/66 96 12/23/16 20:37 98.0 68 18 125/61 99 12/23/16 19:15 97.9 69 16 120/59 99 12/23/16 18:29 97.9 69 18 103/52 99 12/23/16 16:00 97.9 69 16 116/57 100 12/23/16 15:30 97.9 69 16 116/57 100 12/23/16 12:40 97.3 69 16 111/59 100 12/23/16 12:21 98.1 70 16 114/61 100 12/23/16 12:00 98.1 70 16 141/61 100 12/23/16 11:37 86 12/24/16 12/24/16 12/24/16 07:00 15:00 23:00 Intake Total 0 ml Balance 0 ml Result Diagram: 12/24/16 0630 12/23/16 0630 Laboratory Results Laboratory Tests Test 12/23/16 12/24/16 10:39 06:30 Blood Bank Comment White Blood Count 2.4 TH/MM3 Red Blood Count 2.80 MIL/MM3 Hemoglobin 8.1 GM/DL Hematocrit 23.6 % Mean Corpuscular Volume 84.2 FL Mean Corpuscular Hemoglobin 29.0 PG Mean Corpuscular Hemoglobin 34.5 % Concent Red Cell Distribution Width 22.9 % Platelet Count 44 TH/MM3 Mean Platelet Volume 8.6 FL Administered Medications Medications (Trade) Dose Ordered Sig/Maria Luisa Route PRN Reason Start Time Stop Time Status Last Admin Dose Admin Alprazolam (Xanax) 0.25 mg Q8H PRN PO ANXIETY 12/21/16 18:30 12/23/16 08:56 Cholecalciferol (Vitamin D3) 1,000 units DAILY PO 12/22/16 09:00 12/23/16 08:55 Acetaminophen/ Hydrocodone Bitart ([place] 5-325 Mg) 1 tab Q6H PRN PO PAIN SCALE 1 TO 10 12/21/16 18:30 12/24/16 05:59 Nadolol (Corgard) 20 mg DAILY PO 12/22/16 09:00 12/23/16 08:55 Pantoprazole Sodium (Protonix) 20 mg DAILY PO 12/22/16 09:00 12/23/16 08:55 Aspirin 81 mg 81 mg DAILY PO 12/23/16 09:00 12/23/16 08:55 Iron Sucrose/ Sodium Chloride (Venofer Inj/NS Inj) 110 ml @ 110 mls/hr DAILY IV 12/23/16 09:00 12/25/16 09:59 12/23/16 16:22 Ascorbic Acid (Vitamin C) 500 mg DAILY PO 12/23/16 09:00 12/23/16 08:55 Folic Acid (Folate) 1 mg DAILY PO 12/23/16 09:00 12/23/16 08:55 Multi-Ingredient Mouthwash/Gargle (Magic Mouthwash Adult Liq) 10 ml QID SWISH-SWAL 12/23/16 10:15 12/23/16 21:04 Objective Remarks GENERAL: Older female, sitting up in bed in no distress. SKIN: Warm and dry. HEAD: Normocephalic. EYES: No injection or drainage. NECK: Supple, trachea midline. CARDIOVASCULAR: +S1/S2. RESPIRATORY: Clear, few crackles in bases. GASTROINTESTINAL: Abdomen soft, non-tender, nondistended. EXTREMITIES: No edema. NEUROLOGICAL: No obvious focal deficit. Awake, alert, and oriented x3. Assessment/Plan Problem List: (1) Tongue malignant neoplasm Status: Acute (2) Pancytopenia Status: Acute (3) Liver cirrhosis Status: Acute (4) PAD (peripheral artery disease) Status: Acute (5) Breast cancer, left Status: Acute (6) Anemia Status: Acute (7) Thrombocytopenia Status: Acute Assessment 71 y/o with two synchronous malignancies, head and neck cancer and left sided stage III breast cancer who presents with Leg pain 1. Extensive peripheral vascular disease - will benefit from anti-platelet therapy. on ASA for now - Vacular surgery recommending medical management at this time 2. Thrombocytopenia 2/2 to chemotherapy 3. Acute anemia due to chemotherapy and also a history of iron deficiency - getting keven infusion - Transfuse pRBC if Hb drops below 7.5 4. Stage III left breast cancer - outpatient treatment 5. Malnutrition and decreased oral intake - encourage oral intake. - Remeron 15 mg po daily - Boost or Ensure TID with meal 6. Head and Neck cancer: under observation at this time. Plan 1. Continue ASA as platelets are 44K today. 2. Monitor for fevers 3. Daily CBC; transfuse for platelets <20K and Hgb < 7.5. 4. Supportive care. Attending Statement The exam, history, and the medical decision-making described in the above note were completed with the assistance of the mid-level provider. I reviewed and agree with the findings presented. I attest that I had a [id number] encounter with the patient on the same day, and personally performed and documented my assessment and findings in the medical record. Feels better. No bleeding Blood counts are improving. Continue ASA. Monitor CBC. Brenda Perez December 24, 2016 08:08 Delfin Barton MD December 24, 2016 13:05
[2016-12-24] MEDS: NYSTAT/DIPHENHY/LIDO MOUTHWASH (Adult) 120ML SWISH-SWAL SCH ×4 (09:37→20:46)
[2016-12-24] MEDS: CHOLECALCIFEROL (VIT D3) 1000 UNIT TAB PO SCH (09:38)
[2016-12-24] MEDS: PANTOPRAZOLE SOD 20 MG DELAYED RELEASE TAB PO SCH (09:38)
[2016-12-24] MEDS: IRON SUCROSE INJ 200 MG in SODIUM CHLORIDE 0.9% INJ 100 ML IV SCH (09:38)
[2016-12-24] MEDS: ASPIRIN 81 MG CHEW TAB PO SCH (09:38)
[2016-12-24] MEDS: FOLIC ACID 1 MG TAB PO SCH (09:38)
[2016-12-24] MEDS: ASCORBIC ACID 500 MG TAB PO SCH (09:38)
[2016-12-24] MEDS: NADOLOL 20 MG TAB PO SCH (09:38)
--- NOTE | 2016-12-24 12:04 | HHI.PR ---
Subjective Remarks patient feeling stronger more upbeat feet feels warm Objective Vitals Vital Signs Date Time Temp Pulse Resp B/P Pulse Ox O2 Delivery O2 Flow Rate FiO2 12/24/16 09:00 82 12/24/16 08:00 Room Air 12/24/16 08:00 98.0 74 20 113/59 98 12/24/16 04:00 98.2 63 18 101/56 95 12/24/16 00:30 98.1 64 18 134/66 96 12/23/16 20:37 98.0 68 18 125/61 99 12/23/16 19:15 97.9 69 16 120/59 99 12/23/16 18:29 97.9 69 18 103/52 99 12/23/16 16:00 97.9 69 16 116/57 100 12/23/16 15:30 97.9 69 16 116/57 100 12/23/16 12:40 97.3 69 16 111/59 100 12/23/16 12:21 98.1 70 16 114/61 100 I/O 12/23/16 12/23/16 12/23/16 12/24/16 12/24/16 12/24/16 07:00 15:00 23:00 07:00 15:00 23:00 Intake Total 240 ml 1200 ml 0 ml Balance 240 ml 1200 ml 0 ml Intake Oral 240 ml 1200 ml IV Total 0 ml # Voids 3 2 2 2 # Bowel Movements 1 2 0 Result Diagram: 12/24/16 0630 12/23/16 0630 Imaging Last Impressions Aorta w/Runoff CTA 12/21/16 1549 Signed Impressions: Service Date/Time: Wednesday, December 21, 2016 16:15 - CONCLUSION: 1. 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 2. Right lower extremity shows severe outflow disease. There is chronic occlusion of the femoropopliteal bypass as well as the [place] SFA. Reconstitution of the [id number] popliteal artery. Diffuse moderate trifurcation disease. 3. Left lower extremity has chronic occlusion of the common femoral artery and outflow vessels. There is reconstitution of a heavily diseased above the knee popliteal artery. Diffuse moderate disease of the trifurcation vessels. 4. The patient's disease is not amenable to endovascular repair. 5. Cirrhosis. 6. Splenomegaly. 7. Colonic diverticulosis. Jan Ferraro Jr., MD Chest X-Ray 12/21/16 1538 Signed Impressions: Service Date/Time: Wednesday, December 21, 2016 16:04 - CONCLUSION: No acute cardiopulmonary disease. Paulie Carey MD Foot X-Ray 12/21/16 0000 Signed Impressions: Service Date/Time: Wednesday, December 21, 2016 14:32 - CONCLUSION: Mild arthritic changes. Ignacio Hampton MD Objective Remarks awake and alert, oriented x 3 anicteric, oral mucosal - decrease thrush lungs clear regular rhythm abdomen soft, nontender extremities no edema, no calf swelling or tenderness, no pedal edema, feet and toes warm, no discoloration neuro exam- unremarkable A/P Assessment and Plan 71-year-old female presenting with chronic PVD with Left foot fourth fifth ischemic toes ischemic changes- improved Patient seen by vascular surgery no plan for any intervention. ASA daily. Percocet when necessary for pain Pancytopenia-likely BM suppression from recent chemotherapy with history of head and neck and infiltrating ductal carcinoma. History of liver cirrhosis Iron deficiency- low iron stores thrombocytopenia - improved Neutropenia- WBC ct up a little. afebrile. if spikes a fever start IV Cefepime- WBC trending up give IV Iron daily x 3 Keep hemoglobin > 7.5, Keep platelet > 20 per Hematology recommendation patient states she had a colonoscopy done within the past 6 months which were negative except for polyps. no signs of active bleeding. S/P 1 unit RBC and 1 pack platelet transfusion S/P transfusion of RBC today 12/23 Hematology ff- - Dr. Mago null History of hypertension. continue on Nadolol 20 mg daily. Hold Amlodipine History of breast cancer continue anastrozole 1 mg daily Hypokalemia- replace with po KCL 30 meq 12/23. given another 10 mew today. BMP in am Oral sores- Magic mouthwash tid inform her if starts complaining of dysphagia or odynophagia to let us know- may need EGD Continue on PPI for GI prophylaxis Yehuda Corona MD December 24, 2016 12:03
[2016-12-24] MEDS ORDERED: POTASSIUM CHLORIDE 10 MEQ CAP PO ONE (12:30)
[2016-12-24] MEDS: ALPRAZolam 0.25 MG TAB PO PRN (20:53)
[2016-12-25] VITALS (8 sets, daily range): BP systolic 102–113; BP diastolic 56–77; PULSE 73–84; RESP 16–18; TEMP 97.4–98.8; O2SAT 93–100
[2016-12-25 05:11] LABS: BICARBONATE 28.5 MEQ/L (21.0-32.0); POTASSIUM 3.8 MEQ/L (3.5-5.1)
--- NOTE | 2016-12-25 08:05 | HHI.PR ---
Subjective Remarks T 97.4 now last night per patient felt feverish and had chills no nausea or vomiting, no dysuria + cough- unable to bring up phlegm no diarrhea Objective Vitals Vital Signs Date Time Temp Pulse Resp B/P Pulse Ox O2 Delivery O2 Flow Rate FiO2 12/25/16 04:00 98.5 73 18 107/56 96 12/25/16 00:00 98.8 81 18 102/57 95 12/24/16 20:10 Room Air 12/24/16 20:07 90 12/24/16 20:00 98.7 88 18 129/65 96 12/24/16 16:00 100.1 88 20 142/82 96 12/24/16 12:00 97.7 67 20 132/66 93 12/24/16 09:00 82 I/O 12/24/16 12/24/16 12/24/16 12/25/16 12/25/16 12/25/16 07:00 15:00 23:00 07:00 15:00 23:00 Intake Total 810 ml 242 ml 240 ml Balance 810 ml 242 ml 240 ml Intake Oral 810 ml 240 ml 240 ml IV Total 0 ml 2 ml # Voids 2 5 2 2 # Bowel Movements 0 2 0 0 Result Diagram: 12/24/16 0630 12/25/16 0435 Imaging Last Impressions Aorta w/Runoff CTA 12/21/16 3019 Signed Impressions: Service Date/Time: Wednesday, December 21, 2016 16:15 - CONCLUSION: 1. 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 2. Right lower extremity shows severe outflow disease. There is chronic occlusion of the femoropopliteal bypass as well as the [place] SFA. Reconstitution of the [id number] popliteal artery. Diffuse moderate trifurcation disease. 3. Left lower extremity has chronic occlusion of the common femoral artery and outflow vessels. There is reconstitution of a heavily diseased above the knee popliteal artery. Diffuse moderate disease of the trifurcation vessels. 4. The patient's disease is not amenable to endovascular repair. 5. Cirrhosis. 6. Splenomegaly. 7. Colonic diverticulosis. Jan Ferraro Jr., MD Chest X-Ray 12/21/16 1538 Signed Impressions: Service Date/Time: Wednesday, December 21, 2016 16:04 - CONCLUSION: No acute cardiopulmonary disease. Paulie Carey MD Foot X-Ray 12/21/16 0000 Signed Impressions: Service Date/Time: Wednesday, December 21, 2016 14:32 - CONCLUSION: Mild arthritic changes. Ignacio Hampton MD Objective Remarks awake and alert, oriented x 3 anicteric, oral mucosal - decrease thrush- still some left buccal mucosa port site- clean lungs clear regular rhythm abdomen soft, nontender extremities no edema, no calf swelling or tenderness, no pedal edema neuro exam- unremarkable A/P Assessment and Plan 71-year-old female presenting with chronic PVD with Left foot fourth fifth ischemic toes ischemic changes- improved Patient seen by vascular surgery no plan for any intervention. ASA daily. Percocet when necessary for pain Pancytopenia-likely BM suppression from recent chemotherapy with history of head and neck and infiltrating ductal carcinoma. History of liver cirrhosis - counts trending up. CBC today pending Iron deficiency- low iron stores thrombocytopenia - improved- trending up. Neutropenia- WBC ct up a little. + fever chills diaphoresis last night per patient- get cultures, CXR start IV Cefepime- give IV Iron daily x 3 - last day today 12/25 Keep hemoglobin > 7.5, Keep platelet > 20 per Hematology recommendation patient states she had a colonoscopy done within the past 6 months which were negative except for polyps. no signs of active bleeding. S/P 1 unit RBC and 1 pack platelet transfusion S/P transfusion of RBC today 12/23 Hematology ff- - Dr. Mago null History of hypertension. continue on Nadolol 20 mg daily. Hold Amlodipine History of breast cancer continue anastrozole 1 mg daily Hypokalemia- improved Oral sores- Magic mouthwash tid- no dysphagia inform her if starts complaining of dysphagia or odynophagia to let us know- may need EGD Continue on PPI for GI prophylaxis Yehuda Corona MD December 25, 2016 08:05
--- NOTE | 2016-12-25 08:36 | PD.ONC.PN ---
Subjective Subjective Remarks Tmax 100.1 yesterday afternoon. Pt had some chills, but since that time has not had symptoms. She c/o mucous that is difficult to expectorate. No chest pain. No bleeding. Objective Data Date Time Temp Pulse Resp B/P Pulse Ox O2 Delivery O2 Flow Rate FiO2 12/25/16 08:00 97.4 81 16 104/57 93 12/25/16 04:00 98.5 73 18 107/56 96 12/25/16 00:00 98.8 81 18 102/57 95 12/24/16 20:10 Room Air 12/24/16 20:07 90 12/24/16 20:00 98.7 88 18 129/65 96 12/24/16 16:00 100.1 88 20 142/82 96 12/24/16 12:00 97.7 67 20 132/66 93 12/24/16 09:00 82 12/25/16 12/25/16 12/25/16 07:00 15:00 23:00 Intake Total 240 ml Balance 240 ml Result Diagram: 12/24/16 0630 12/25/16 0435 Laboratory Results Laboratory Tests Test 12/25/16 04:35 Sodium Level 142 MEQ/L Potassium Level 3.8 MEQ/L Chloride Level 106 MEQ/L Carbon Dioxide Level 28.5 MEQ/L Anion Gap 8 MEQ/L Blood Urea Nitrogen 11 MG/DL Creatinine 0.58 MG/DL Estimat Glomerular Filtration 103 ML/MIN Rate Random Glucose 92 MG/DL Calcium Level 8.6 MG/DL Administered Medications Medications (Trade) Dose Ordered Sig/Maria Luisa Route PRN Reason Start Time Stop Time Status Last Admin Dose Admin Alprazolam (Xanax) 0.25 mg Q8H PRN PO ANXIETY 12/21/16 18:30 12/24/16 20:53 Cholecalciferol (Vitamin D3) 1,000 units DAILY PO 12/22/16 09:00 12/24/16 09:38 Acetaminophen/ Hydrocodone Bitart ([place] 5-325 Mg) 1 tab Q6H PRN PO PAIN SCALE 1 TO 10 12/21/16 18:30 12/24/16 20:53 Nadolol (Corgard) 20 mg DAILY PO 12/22/16 09:00 12/24/16 09:38 Prochlorperazine Maleate (Compazine) 10 mg Q6H PRN PO NAUSEA OR VOMITING 12/21/16 18:30 12/24/16 17:33 Pantoprazole Sodium (Protonix) 20 mg DAILY PO 12/22/16 09:00 12/24/16 09:38 Aspirin 81 mg 81 mg DAILY PO 12/23/16 09:00 12/24/16 09:38 Iron Sucrose/ Sodium Chloride (Venofer Inj/NS Inj) 110 ml @ 110 mls/hr DAILY IV 12/23/16 09:00 12/25/16 09:59 12/24/16 09:38 Ascorbic Acid (Vitamin C) 500 mg DAILY PO 12/23/16 09:00 12/24/16 09:38 Folic Acid (Folate) 1 mg DAILY PO 12/23/16 09:00 12/24/16 09:38 Multi-Ingredient Mouthwash/Gargle (Magic Mouthwash Adult Liq) 10 ml QID SWISH-SWAL 12/23/16 10:15 12/24/16 20:46 Objective Remarks GENERAL: Older female, sitting up in bed in no distress. SKIN: Warm and dry. HEAD: Normocephalic. EYES: No injection or drainage. NECK: Supple, trachea midline. CARDIOVASCULAR: +S1/S2. RESPIRATORY: Diminished, coarse at bases. GASTROINTESTINAL: Abdomen soft, non-tender, nondistended. EXTREMITIES: No edema. Bilateral feet warm to touch. NEUROLOGICAL: No obvious focal deficit. Awake, alert, and oriented x3. Assessment/Plan Problem List: (1) Tongue malignant neoplasm Status: Acute (2) Pancytopenia Status: Acute (3) Liver cirrhosis Status: Acute (4) PAD (peripheral artery disease) Status: Acute (5) Breast cancer, left Status: Acute (6) Anemia Status: Acute (7) Thrombocytopenia Status: Acute Assessment 71 y/o with two synchronous malignancies, head and neck cancer and left sided stage III breast cancer who presents with Leg pain 1. Extensive peripheral vascular disease - will benefit from anti-platelet therapy. on ASA for now - Vacular surgery recommending medical management at this time 2. Thrombocytopenia 2/2 to chemotherapy 3. Acute anemia due to chemotherapy and also a history of iron deficiency - getting keven infusion - Transfuse pRBC if Hb drops below 7.5 4. Stage III left breast cancer - outpatient treatment 5. Malnutrition and decreased oral intake - encourage oral intake. - Remeron 15 mg po daily - Boost or Ensure TID with meal 6. Head and Neck cancer: under observation at this time. Plan 1. Pt with temp yesterday of 100.1. 2. Will obtain blood cultures, CXR. 3. Start Cefepime. 4. Daily CBC; transfuse for platelets <20K and Hgb < 7.5. Attending Statement The exam, history, and the medical decision-making described in the above note were completed with the assistance of the mid-level provider. I reviewed and agree with the findings presented. I attest that I had a [id number] encounter with the patient on the same day, and personally performed and documented my assessment and findings in the medical record. Had low grade fever. Neutropenia resolved. Continue empiric abx pending blood culture. Blood counts are improving and no transfusion needed today. Brenda Perez December 25, 2016 08:36 Delfin Barton MD December 25, 2016 11:48
[2016-12-25 08:42] LABS: HEMATOCRIT 26.6 % (35.0-46.0); MEAN CELL VOLUME 84.7 FL (80.0-100.0); MEAN CORPUSCULAR HEMOGLOBIN 29.6 PG (27.0-34.0); PLATELET COUNT 52 TH/MM3 (150-450); RED BLOOD COUNT 3.14 MIL/MM3 (4.00-5.30); RED CELL DISTRIBUTION WIDTH 22.9 % (11.6-17.2); WHITE BLOOD COUNT 5.2 TH/MM3 (4.0-11.0)
[2016-12-25 08:44] LABS: HEMO FLAGS AUTO DIFF
--- NOTE | 2016-12-25 09:39 | RADRPT ---
EXAM DATE/TIME: 12/25/2016 09:29 [facility] COMPARISON: CHEST SINGLE AP, December 21, 2016, 16:04. INDICATIONS : Cough. MEDICAL HISTORY : Chronic obstructive pulmonary disease. Carcinoma, breast. SURGICAL HISTORY : Mastectomy, bilateral. [id number]. ENCOUNTER: Initial ACUITY: 4 - 6 days PAIN SCORE: 0/10 LOCATION: Bilateral chest FINDINGS: PA and lateral views of the chest were obtained and demonstrate mild hyperinflation and scarring. The re are no new confluent infiltrates or effusions. The heart size remains within normal limits. There are mild atherosclerotic calcifications in the aorta. The left subclavian implantable port catheter r emains in place. CONCLUSION: 1. No evidence of pneumonia. 2. Underlying emphysema and scarring. Quincy El MD on December 25, 2016 at 9:34 Board Certified Radiologist. This report was verified electronically.
[2016-12-25] MEDS: FOLIC ACID 1 MG TAB PO SCH (10:01)
[2016-12-25] MEDS: NADOLOL 20 MG TAB PO SCH (10:01)
[2016-12-25] MEDS: ACETAMINOPHEN/HYDROcodone 325 MG/5 MG TAB PO PRN ×3 (10:01→21:42)
[2016-12-25] MEDS: ASPIRIN 81 MG CHEW TAB PO SCH (10:01)
[2016-12-25] MEDS: ASCORBIC ACID 500 MG TAB PO SCH (10:01)
[2016-12-25] MEDS: PANTOPRAZOLE SOD 20 MG DELAYED RELEASE TAB PO SCH (10:01)
[2016-12-25] MEDS: CHOLECALCIFEROL (VIT D3) 1000 UNIT TAB PO SCH (10:01)
[2016-12-25] MEDS: NYSTAT/DIPHENHY/LIDO MOUTHWASH (Adult) 120ML SWISH-SWAL SCH ×4 (10:01→20:15)
[2016-12-25] MEDS: IRON SUCROSE INJ 200 MG in SODIUM CHLORIDE 0.9% INJ 100 ML IV SCH (10:02)
[2016-12-25 10:45] LABS: BANDS 21 % (0-6); METAMYELOCYTES 1 % (0-1); MYELOCYTES 1 % (0-0); NEUTROPHIL # MANUAL DIFF 3.8 TH/MM3 (1.8-7.7); POLYS (SEG NEUTROPHILS) 49 % (16-70); PROMYELOCYTES 1 % (0-0); TOXIC GRANULATION 1+ (NORMAL); WBC DIFF SAMPLE 100
[2016-12-25 10:46] LABS: DOHLE BODIES PRESENT (NONE SEEN); KERATOCYTES OCC (NORMAL); OVALOCYTES 1+ (NORMAL); PLATELET ESTIMATE SMEAR LOW (NORMAL); PLATELET MORPHOLOGY NORMAL (NORMAL)
[2016-12-25 10:47] LABS: SCAN/DIFF FINAL DIFF MANUAL
[2016-12-25] MEDS: CEFEPIME INJ 2,000 MG in SODIUM CHLORIDE 0.9% INJ 100 ML IV SCH ×2 (13:19→20:16)
[2016-12-25] MEDS: ALPRAZolam 0.25 MG TAB PO PRN (21:42)
[2016-12-26] VITALS (7 sets, daily range): BP systolic 100–132; BP diastolic 53–65; PULSE 69–76; RESP 16–20; TEMP 98–98.7; O2SAT 96–100
[2016-12-26] MEDS: CEFEPIME INJ 2,000 MG in SODIUM CHLORIDE 0.9% INJ 100 ML IV SCH ×2 (05:17→12:31)
--- NOTE | 2016-12-26 08:47 | HHI.PR ---
Subjective Remarks feeling better, no oral pain,afebrile no chills, no diarrhea Objective Vitals Vital Signs Date Time Temp Pulse Resp B/P Pulse Ox O2 Delivery O2 Flow Rate FiO2 12/26/16 04:00 98.2 74 16 117/58 97 12/26/16 00:00 98.3 76 18 100/53 96 12/25/16 20:20 Room Air 12/25/16 20:00 97.9 73 18 113/77 100 12/25/16 19:51 78 12/25/16 16:00 97.9 78 16 107/62 99 12/25/16 12:00 98.4 77 16 105/58 98 12/25/16 09:34 84 I/O 12/25/16 12/25/16 12/25/16 12/26/16 12/26/16 12/26/16 07:00 15:00 23:00 07:00 15:00 23:00 Intake Total 240 ml 720 ml 588 ml 825 ml Balance 240 ml 720 ml 588 ml 825 ml Intake Oral 240 ml 720 ml 480 ml 720 ml IV Total 0 ml 108 ml 105 ml # Voids 2 2 2 1 # Bowel Movements 0 2 2 0 Result Diagram: 12/25/16 0810 12/25/16 0435 Imaging Last Impressions Chest X-Ray 12/25/16 0000 Signed Impressions: Service Date/Time: Sunday, December 25, 2016 09:29 - CONCLUSION: 1. No evidence of pneumonia. 2. Underlying emphysema and scarring. Quincy El MD Aorta w/Runoff CTA 12/21/16 1549 Signed Impressions: Service Date/Time: Wednesday, December 21, 2016 16:15 - CONCLUSION: 1. 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 2. Right lower extremity shows severe outflow disease. There is chronic occlusion of the femoropopliteal bypass as well as the [place] SFA. Reconstitution of the [id number] popliteal artery. Diffuse moderate trifurcation disease. 3. Left lower extremity has chronic occlusion of the common femoral artery and outflow vessels. There is reconstitution of a heavily diseased above the knee popliteal artery. Diffuse moderate disease of the trifurcation vessels. 4. The patient's disease is not amenable to endovascular repair. 5. Cirrhosis. 6. Splenomegaly. 7. Colonic diverticulosis. Jan Ferraro Jr., MD Foot X-Ray 12/21/16 0000 Signed Impressions: Service Date/Time: Wednesday, December 21, 2016 14:32 - CONCLUSION: Mild arthritic changes. Ignacio Hampton MD Objective Remarks awake and alert, oriented x 3 anicteric, oral mucosal - no sores lungs clear regular rhythm abdomen soft, nontender extremities no edema, no calf swelling or tenderness, no pedal edema, feet and toes warm, no discoloration neuro exam- unremarkable A/P Assessment and Plan 71-year-old female presenting with chronic PVD with Left foot fourth fifth ischemic toes ischemic changes- Improved Patient seen by vascular surgery no plan for any intervention. ASA daily. Percocet when necessary for pain Pancytopenia-likely BM suppression from recent chemotherapy with history of head and neck and infiltrating ductal carcinoma. History of liver cirrhosis - counts trending up. CBC today Iron deficiency- low iron stores thrombocytopenia - improved- trending up. Neutropenia- WBC ct trending up T down started on IV Cefepime- give IV Iron daily x 3 - 12/25 completed Keep hemoglobin > 7.5, Keep platelet > 20 per Hematology recommendation patient states she had a colonoscopy done within the past 6 months which were negative except for polyps. no signs of active bleeding. S/P 1 unit RBC and 1 pack platelet transfusion S/P transfusion of RBC 12/23 Hematology ff- - Dr. Mago null. Recheck CBC today History of hypertension. continue on Nadolol 20 mg daily. Was on amlodpine as OP - DC here with current readings History of breast cancer continue anastrozole 1 mg daily Hypokalemia- improved Oral sores- no dysphagia- Improved continue on Magic mouthwash tid inform her if starts complaining of dysphagia or odynophagia to let us know- may need EGD Continue on PPI for GI prophylaxis Up and ambulating Yehuda Corona MD December 26, 2016 08:47
[2016-12-26] MEDS: NYSTAT/DIPHENHY/LIDO MOUTHWASH (Adult) 120ML SWISH-SWAL SCH ×4 (09:41→22:59)
[2016-12-26] MEDS: NADOLOL 20 MG TAB PO SCH (09:42)
[2016-12-26] MEDS: CHOLECALCIFEROL (VIT D3) 1000 UNIT TAB PO SCH (09:42)
[2016-12-26] MEDS: FOLIC ACID 1 MG TAB PO SCH (09:42)
[2016-12-26] MEDS: PANTOPRAZOLE SOD 20 MG DELAYED RELEASE TAB PO SCH (09:42)
[2016-12-26] MEDS: ASPIRIN 81 MG CHEW TAB PO SCH (09:42)
[2016-12-26] MEDS: ASCORBIC ACID 500 MG TAB PO SCH (09:42)
[2016-12-26 11:03] LABS: HEMATOCRIT 25.8 % (35.0-46.0); MEAN CELL VOLUME 86.3 FL (80.0-100.0); MEAN CORPUSCULAR HEMOGLOBIN 29.5 PG (27.0-34.0); MEAN CORPUSCULAR HGB CONC 34.1 % (32.0-36.0); PLATELET COUNT 50 TH/MM3 (150-450); RED BLOOD COUNT 2.99 MIL/MM3 (4.00-5.30); RED CELL DISTRIBUTION WIDTH 24.2 % (11.6-17.2)
[2016-12-26 11:06] LABS: HEMO FLAGS AUTO DIFF
[2016-12-26 12:17] LABS: BANDS 22 % (0-6); BASOPHILS 1 % (0-2); CORRECTED NUCLEATED RBC 1 /100 WBC (0-0); MYELOCYTES 1 % (0-0); NEUTROPHIL # MANUAL DIFF 3.5 TH/MM3 (1.8-7.7); POLYS (SEG NEUTROPHILS) 47 % (16-70); WBC DIFF SAMPLE 100
[2016-12-26 12:22] LABS: OVALOCYTES 1+ (NORMAL)
[2016-12-26 12:23] LABS: PLATELET ESTIMATE SMEAR LOW (NORMAL); PLATELET MORPHOLOGY ENLARGED (NORMAL); SCAN/DIFF FINAL DIFF MANUAL
[2016-12-26] MEDS: ACETAMINOPHEN/HYDROcodone 325 MG/5 MG TAB PO PRN ×2 (12:32→22:59)
--- NOTE | 2016-12-26 12:54 | PD.VS.PN ---
Subjective Subjective/Hospital Course Pt without complaints Pt denies LE pain and reported she overall feels better today Objective Vitals/I&O Date Time Temp Pulse Resp B/P Pulse Ox O2 Delivery O2 Flow Rate FiO2 12/26/16 08:00 98.7 76 20 132/63 97 12/26/16 04:00 98.2 74 16 117/58 97 12/26/16 00:00 98.3 76 18 100/53 96 12/25/16 20:20 Room Air 12/25/16 20:00 97.9 73 18 113/77 100 12/25/16 19:51 78 12/25/16 16:00 97.9 78 16 107/62 99 12/26/16 12/26/16 12/26/16 06:59 14:59 22:59 Intake Total 825 ml Balance 825 ml Physical Exam GENERAL: A&OX3, NAD, GCS15, Pleasant 71/F SKIN: Warm and dry. NECK: Supple, No JVD CARDIOVASCULAR: +S1/S2 RRR w/o M/G/R RESPIRATORY: CTA GASTROINTESTINAL: Abdomen S/NT MUSCULOSKELETAL: No cyanosis, or edema. Bilat feet warm to touch, motor intact, non palpable DP/PT Faint Monophasic signals heard via Doppler DP/PT Laboratory Laboratory Tests Test 12/26/16 10:29 White Blood Count 5.0 Red Blood Count 2.99 Hemoglobin 8.8 Hematocrit 25.8 Mean Corpuscular Volume 86.3 Mean Corpuscular Hemoglobin 29.5 Mean Corpuscular Hemoglobin 34.1 Concent Red Cell Distribution Width 24.2 Platelet Count 50 Mean Platelet Volume 10.7 Neutrophils (%) (Auto) Lymphocytes (%) (Auto) Monocytes (%) (Auto) Eosinophils (%) (Auto) Basophils (%) (Auto) Neutrophils # (Auto) Lymphocytes # (Auto) Monocytes # (Auto) Eosinophils # (Auto) Basophils # (Auto) CBC Comment AUTO DIFF Differential Total Cells 100 Counted Neutrophils % (Manual) 47 Band Neutrophils % 22 Lymphocytes % 9 Monocytes % 20 Basophils % 1 Neutrophils # (Manual) 3.5 Myelocytes 1 Nucleated Red Blood Cells 1 Differential Comment FINAL DIFF MANUAL Platelet Estimate LOW Platelet Morphology Comment ENLARGED Ovalocytes 1+ Keratocytes Date/Time Procedure Status Source Growth 12/25/16 08:16 Aerobic Blood Culture - Preliminary Resulted Blood Peripheral NO GROWTH IN 1 DAY 12/25/16 08:16 Anaerobic Blood Culture - Preliminary Resulted Blood Peripheral NO GROWTH IN 1 DAY 12/25/16 08:16 Aerobic Blood Culture Received Blood Peripheral Pending 12/25/16 08:16 Anaerobic Blood Culture Received Blood Peripheral Pending Imaging Last 48 hours Impressions Chest X-Ray 12/25/16 0000 Signed Impressions: Service Date/Time: Sunday, December 25, 2016 09:29 - CONCLUSION: 1. No evidence of pneumonia. 2. Underlying emphysema and scarring. Quincy El MD Assessment and Plan Assessment: (1) PAD (peripheral artery disease) Status: Chronic (2) Liver cirrhosis Status: Acute (3) Breast cancer, left Status: Acute Plan This is a pleasant 71 year old female with chronic critical limb ischemia. She has had rest pain for a FEW YEARS and has had short distance claudication. We discussed that she has had episodes this bad in the past where she was affected after long day of ambulation (left greater than right severe thigh to calf pain) Improved today. 12/26/16 PLAN Pain controlled Pt will follow-up in our OPC in 6W (post chemotherapy treatment) at scheduled appointment time Discussed with patient, pt agrees to plan Kelley TELLEZ [facility]/[place] [phone] Francisco J Vogel DO, FACS Environmental Manager of Vascular Surgery /[place] Discharge Planning Will see patient in our OPC in 6W for follow up Kelley Arana December 26, 2016 12:54
--- NOTE | 2016-12-26 22:36 | PD.ONC.PN ---
Subjective Subjective Remarks afebrile denies any pain no dyspnea/no cough/congestion has weakness d/w rn Objective Data Date Time Temp Pulse Resp B/P Pulse Ox O2 Delivery O2 Flow Rate FiO2 12/26/16 20:00 98.2 72 18 131/65 99 12/26/16 16:00 98.1 69 20 128/60 99 12/26/16 15:44 74 12/26/16 12:00 98.0 72 20 119/58 100 12/26/16 08:25 Room Air 12/26/16 08:00 98.7 76 20 132/63 97 12/26/16 04:00 98.2 74 16 117/58 97 12/26/16 00:00 98.3 76 18 100/53 96 12/26/16 12/26/16 12/26/16 07:00 15:00 23:00 Intake Total 825 ml 720 ml Balance 825 ml 720 ml Result Diagram: 12/26/16 1029 12/25/16 0435 Laboratory Results Laboratory Tests Test 12/26/16 10:29 White Blood Count 5.0 TH/MM3 Red Blood Count 2.99 MIL/MM3 Hemoglobin 8.8 GM/DL Hematocrit 25.8 % Mean Corpuscular Volume 86.3 FL Mean Corpuscular Hemoglobin 29.5 PG Mean Corpuscular Hemoglobin 34.1 % Concent Red Cell Distribution Width 24.2 % Platelet Count 50 TH/MM3 Mean Platelet Volume 10.7 FL Neutrophils (%) (Auto) % Lymphocytes (%) (Auto) % Monocytes (%) (Auto) % Eosinophils (%) (Auto) % Basophils (%) (Auto) % Neutrophils # (Auto) TH/MM3 Lymphocytes # (Auto) TH/MM3 Monocytes # (Auto) TH/MM3 Eosinophils # (Auto) TH/MM3 Basophils # (Auto) TH/MM3 CBC Comment AUTO DIFF Differential Total Cells 100 Counted Neutrophils % (Manual) 47 % Band Neutrophils % 22 % Lymphocytes % 9 % Monocytes % 20 % Basophils % 1 % Neutrophils # (Manual) 3.5 TH/MM3 Myelocytes 1 % Nucleated Red Blood Cells 1 /100 WBC Differential Comment FINAL DIFF MANUAL Platelet Estimate LOW Platelet Morphology Comment ENLARGED Ovalocytes 1+ Keratocytes Culture Results Microbiology Date/Time Procedure Status Source Growth 12/25/16 08:10 Aerobic Blood Culture - Preliminary Resulted Blood Peripheral NO GROWTH IN 1 DAY 12/25/16 08:10 Anaerobic Blood Culture - Preliminary Resulted Blood Peripheral NO GROWTH IN 1 DAY 12/25/16 08:16 Aerobic Blood Culture - Preliminary Resulted Blood Peripheral NO GROWTH IN 1 DAY 12/25/16 08:16 Anaerobic Blood Culture - Preliminary Resulted Blood Peripheral NO GROWTH IN 1 DAY 12/25/16 08:16 Aerobic Blood Culture Received Blood Peripheral Pending 12/25/16 08:16 Anaerobic Blood Culture Received Blood Peripheral Pending Administered Medications Medications (Trade) Dose Ordered Sig/Maria Luisa Route PRN Reason Start Time Stop Time Status Last Admin Dose Admin Alprazolam (Xanax) 0.25 mg Q8H PRN PO ANXIETY 12/21/16 18:30 12/25/16 21:42 Cholecalciferol (Vitamin D3) 1,000 units DAILY PO 12/22/16 09:00 12/26/16 09:42 Acetaminophen/ Hydrocodone Bitart ([place] 5-325 Mg) 1 tab Q6H PRN PO PAIN SCALE 1 TO 10 12/21/16 18:30 12/26/16 12:32 Nadolol (Corgard) 20 mg DAILY PO 12/22/16 09:00 12/26/16 09:42 Prochlorperazine Maleate (Compazine) 10 mg Q6H PRN PO NAUSEA OR VOMITING 12/21/16 18:30 12/24/16 17:33 Pantoprazole Sodium (Protonix) 20 mg DAILY PO 12/22/16 09:00 12/26/16 09:42 Aspirin (Aspirin Chew) 81 mg DAILY PO 12/23/16 09:00 12/26/16 09:42 Ascorbic Acid (Vitamin C) 500 mg DAILY PO 12/23/16 09:00 12/26/16 09:42 Folic Acid (Folate) 1 mg DAILY PO 12/23/16 09:00 12/26/16 09:42 Multi-Ingredient Mouthwash/Gargle 10 ml 10 ml QID SWISH-SWAL 12/23/16 10:15 12/26/16 18:11 Cefepime HCl/ Sodium Chloride (Maxipime Inj/NS Inj) 100 ml @ 200 mls/hr Q8H IV 12/25/16 12:00 12/26/16 12:31 Objective Remarks GENERAL: nad SKIN: Warm and dry. LYMPHATIC: No adenopathy. CARDIOVASCULAR: Regular rate and rhythm without murmurs. RESPIRATORY: Breath sounds equal bilaterally. No accessory muscle use. GASTROINTESTINAL: Abdomen soft, non-tender, nondistended. EXTREMITIES: No cyanosis, or edema. Assessment/Plan Problem List: (1) Tongue malignant neoplasm Status: Acute (2) Pancytopenia Status: Acute (3) Liver cirrhosis Status: Acute (4) PAD (peripheral artery disease) Status: Chronic (5) Breast cancer, left Status: Acute (6) Anemia Status: Acute (7) Thrombocytopenia Status: Acute Assessment 71 y/o with two synchronous malignancies, head and neck cancer and left sided stage III breast cancer who presents with Leg pain 1. Extensive peripheral vascular disease - will benefit from anti-platelet therapy. on ASA for now - Vacular surgery recommending medical management at this time 2. Thrombocytopenia 2/2 to chemotherapy 3. Acute anemia due to chemotherapy and also a history of iron deficiency - getting keven infusion - Transfuse pRBC if Hb drops below 7.5 4. Stage III left breast cancer - outpatient treatment 5. Malnutrition and decreased oral intake - encourage oral intake. - Remeron 15 mg po daily - Boost or Ensure TID with meal 6. Head and Neck cancer: under observation at this time. Plan 1. Febrile Neutropenia: no longer neutropenic. Blood cultures negative for 24 hours. On cefepime. Chest X-ray negative. Switch to oral abx. Levaquin 500mg po daily 2. PAD: on ASA 3. Thrombocytopenia: plt count improving 4. Anemia 2/2 to chemotherapy: Will transfuse 1 unit of pRBC. Next round of chemotherapy due soon. Will drop Hb again Justus Mercedes MD December 26, 2016 22:36
[2016-12-26] MEDS: ALPRAZolam 0.25 MG TAB PO PRN (22:59)
[2016-12-26] MEDS ORDERED: ACETAMINOPHEN 325 MG TAB PO SCH (23:30)
[2016-12-26] MEDS ORDERED: diphenhydrAMINE HCL 25 MG CAP PO SCH (23:30)
[2016-12-27] VITALS (10 sets, daily range): BP systolic 111–180; BP diastolic 56–79; PULSE 59–86; RESP 18–20; TEMP 97.7–98.5; O2SAT 95–100
[2016-12-27 07:55] LABS: HEMATOCRIT 30.3 % (35.0-46.0); MEAN CELL VOLUME 85.5 FL (80.0-100.0); MEAN CORPUSCULAR HEMOGLOBIN 29.1 PG (27.0-34.0); MEAN CORPUSCULAR HGB CONC 34.1 % (32.0-36.0); PLATELET COUNT 56 TH/MM3 (150-450); RED BLOOD COUNT 3.55 MIL/MM3 (4.00-5.30); RED CELL DISTRIBUTION WIDTH 22.4 % (11.6-17.2); WHITE BLOOD COUNT 6.3 TH/MM3 (4.0-11.0)
[2016-12-27 07:58] LABS: REVIEW FLAG FINAL
[2016-12-27] MEDS: NADOLOL 20 MG TAB PO SCH (09:20)
[2016-12-27] MEDS: LEVOFLOXACIN 500 MG TAB PO SCH (09:20)
[2016-12-27] MEDS: NYSTAT/DIPHENHY/LIDO MOUTHWASH (Adult) 120ML SWISH-SWAL SCH ×4 (09:20→21:53)
[2016-12-27] MEDS: ASCORBIC ACID 500 MG TAB PO SCH (09:21)
[2016-12-27] MEDS: FOLIC ACID 1 MG TAB PO SCH (09:21)
[2016-12-27] MEDS: PANTOPRAZOLE SOD 20 MG DELAYED RELEASE TAB PO SCH (09:21)
[2016-12-27] MEDS: CHOLECALCIFEROL (VIT D3) 1000 UNIT TAB PO SCH (09:21)
[2016-12-27] MEDS: ASPIRIN 81 MG CHEW TAB PO SCH (09:21)
[2016-12-27] MEDS: ALPRAZolam 0.25 MG TAB PO PRN ×2 (09:25→21:53)
[2016-12-27] MEDS: ACETAMINOPHEN/HYDROcodone 325 MG/5 MG TAB PO PRN ×3 (09:25→23:54)
--- NOTE | 2016-12-27 13:30 | HHI.PR ---
Subjective Remarks feeling better, no pain complains no oral pain, no swallowing difficulties, no diarrhea Objective Vitals Vital Signs Date Time Temp Pulse Resp B/P Pulse Ox O2 Delivery O2 Flow Rate FiO2 12/27/16 12:00 97.9 64 18 117/62 99 12/27/16 08:00 98.5 66 18 140/67 97 12/27/16 05:45 98.3 64 18 122/60 97 12/27/16 04:00 Room Air 12/27/16 03:30 98.3 67 18 111/56 96 12/27/16 03:20 98.3 67 18 111/56 96 12/27/16 03:00 98.5 66 18 117/59 96 12/27/16 00:00 Room Air 12/27/16 00:00 98.2 68 18 117/58 97 12/26/16 20:00 Room Air 12/26/16 20:00 98.2 72 18 131/65 99 12/26/16 20:00 75 12/26/16 16:00 98.1 69 20 128/60 99 12/26/16 15:44 74 I/O 12/26/16 12/26/16 12/26/16 12/27/16 12/27/16 12/27/16 07:00 15:00 23:00 07:00 15:00 23:00 Intake Total 825 ml 720 ml 480 ml 120 ml Balance 825 ml 720 ml 480 ml 120 ml Intake Oral 720 ml 600 ml 480 ml 120 ml IV Total 105 ml 120 ml # Voids 1 5 1 2 # Bowel Movements 0 2 0 Result Diagram: 12/27/16 0715 12/25/16 0435 Imaging Last Impressions Chest X-Ray 12/25/16 0000 Signed Impressions: Service Date/Time: Sunday, December 25, 2016 09:29 - CONCLUSION: 1. No evidence of pneumonia. 2. Underlying emphysema and scarring. Quincy El MD Aorta w/Runoff CTA 12/21/16 1549 Signed Impressions: Service Date/Time: Wednesday, December 21, 2016 16:15 - CONCLUSION: 1. 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 2. Right lower extremity shows severe outflow disease. There is chronic occlusion of the femoropopliteal bypass as well as the [place] SFA. Reconstitution of the [id number]-bhbw popliteal artery. Diffuse moderate trifurcation disease. 3. Left lower extremity has chronic occlusion of the common femoral artery and outflow vessels. There is reconstitution of a heavily diseased above the knee popliteal artery. Diffuse moderate disease of the trifurcation vessels. 4. The patient's disease is not amenable to endovascular repair. 5. Cirrhosis. 6. Splenomegaly. 7. Colonic diverticulosis. Jan Ferraro Jr., MD Foot X-Ray 12/21/16 0000 Signed Impressions: Service Date/Time: Wednesday, December 21, 2016 14:32 - CONCLUSION: Mild arthritic changes. Ignacio Hampton MD Objective Remarks awake and alert, oriented x 3 anicteric, oral mucosal - no sores, no thrush lungs clear regular rhythm abdomen soft, nontender extremities no edema, no calf swelling or tenderness neuro exam- unremarkable A/P Assessment and Plan 71-year-old female presenting with Chronic PVD with Left foot fourth fifth ischemic toes ischemic changes- Improved Patient seen by vascular surgery no plan for any intervention. ASA daily. Percocet when necessary for pain Pancytopenia-likely BM suppression from recent chemotherapy -History of head and neck and infiltrating ductal carcinoma. Iron deficiency- low iron stores thrombocytopenia - improved- trending up. Neutropenia- WBC improved T down got IV Cefepime- 12/25- 12/26 -- switched to po levaquin 12/27 S/P IV Iron daily x 3 - 12/25 Keep hemoglobin > 7.5, Keep platelet > 20 per Hematology recommendation patient states she had a colonoscopy done within the past 6 months which were negative except for polyps. no signs of active bleeding. S/P 1 unit RBC and 1 pack platelet transfusion 12/23 Hematology ff- - Dr. Mercedes ff. History of hypertension. continue on Nadolol 20 mg daily. Was on Amlodpine as OP - DC here with current readings History of breast cancer continue anastrozole 1 mg daily Hypokalemia- improved Oral sores- no dysphagia- Improved continue on Magic mouthwash tid inform her if starts complaining of dysphagia or odynophagia to let us know- may need EGD Continue on PPI for GI prophylaxis Up and ambulating Yehuda Corona MD December 27, 2016 13:30
[2016-12-28] VITALS: BP 132/64; PULSE 71; RESP 18; TEMP 98.1; O2SAT 97
--- NOTE | 2016-12-28 00:01 | PD.ONC.PN ---
Subjective Subjective Remarks doing well up and ambulating no fevers/cough/congestion Objective Data Date Time Temp Pulse Resp B/P Pulse Ox O2 Delivery O2 Flow Rate FiO2 12/27/16 20:00 98.2 70 20 118/58 100 12/27/16 16:00 Room Air 12/27/16 16:00 97.7 63 20 134/65 100 12/27/16 12:00 97.9 64 18 117/62 99 12/27/16 12:00 Room Air 12/27/16 09:00 66 12/27/16 08:00 98.5 66 18 140/67 97 12/27/16 08:00 Room Air 12/27/16 08:00 Room Air 12/27/16 05:45 98.3 64 18 122/60 97 12/27/16 04:00 Room Air 12/27/16 03:30 98.3 67 18 111/56 96 12/27/16 03:20 98.3 67 18 111/56 96 12/27/16 03:00 98.5 66 18 117/59 96 Result Diagram: 12/27/16 0715 12/25/16 0435 Laboratory Results Laboratory Tests Test 12/27/16 12/27/16 01:45 07:15 Blood Type A POSITIVE Antibody Screen NEGATIVE Crossmatch Leukocyte-Reduced Red Blood Cells Blood Bank Comment White Blood Count 6.3 TH/MM3 Red Blood Count 3.55 MIL/MM3 Hemoglobin 10.3 GM/DL Hematocrit 30.3 % Mean Corpuscular Volume 85.5 FL Mean Corpuscular Hemoglobin 29.1 PG Mean Corpuscular Hemoglobin 34.1 % Concent Red Cell Distribution Width 22.4 % Platelet Count 56 TH/MM3 Mean Platelet Volume 10.7 FL Culture Results Microbiology Date/Time Procedure Status Source Growth 12/25/16 08:10 Aerobic Blood Culture - Preliminary Resulted Blood Peripheral NO GROWTH IN 2 DAYS 12/25/16 08:10 Anaerobic Blood Culture - Preliminary Resulted Blood Peripheral NO GROWTH IN 2 DAYS 12/25/16 08:16 Aerobic Blood Culture - Preliminary Resulted Blood Peripheral NO GROWTH IN 2 DAYS 12/25/16 08:16 Anaerobic Blood Culture - Preliminary Resulted Blood Peripheral NO GROWTH IN 2 DAYS 12/25/16 08:16 Aerobic Blood Culture Received Blood Peripheral Pending 12/25/16 08:16 Anaerobic Blood Culture Received Blood Peripheral Pending Administered Medications Medications (Trade) Dose Ordered Sig/Maria Luisa Route PRN Reason Start Time Stop Time Status Last Admin Dose Admin Alprazolam (Xanax) 0.25 mg Q8H PRN PO ANXIETY 12/21/16 18:30 12/27/16 21:53 Cholecalciferol (Vitamin D3) 1,000 units DAILY PO 12/22/16 09:00 12/27/16 09:21 Acetaminophen/ Hydrocodone Bitart ([place] 5-325 Mg) 1 tab Q6H PRN PO PAIN SCALE 1 TO 10 12/21/16 18:30 12/27/16 23:54 Nadolol (Corgard) 20 mg DAILY PO 12/22/16 09:00 12/27/16 09:20 Prochlorperazine Maleate (Compazine) 10 mg Q6H PRN PO NAUSEA OR VOMITING 12/21/16 18:30 12/24/16 17:33 Pantoprazole Sodium (Protonix) 20 mg DAILY PO 12/22/16 09:00 12/27/16 09:21 Aspirin (Aspirin Chew) 81 mg DAILY PO 12/23/16 09:00 12/27/16 09:21 Ascorbic Acid (Vitamin C) 500 mg DAILY PO 12/23/16 09:00 12/27/16 09:21 Folic Acid (Folate) 1 mg DAILY PO 12/23/16 09:00 12/27/16 09:21 Multi-Ingredient Mouthwash/Gargle (Magic Mouthwash Adult Liq) 10 ml QID SWISH-SWAL 12/23/16 10:15 12/27/16 21:53 Levofloxacin (Levaquin) 500 mg DAILY PO 12/27/16 09:00 12/27/16 09:20 Objective Remarks GENERAL: nad SKIN: Warm and dry. NECK: Supple, trachea midline. No JVD or lymphadenopathy. LYMPHATIC: No adenopathy. CARDIOVASCULAR: Regular rate and rhythm without murmurs. RESPIRATORY: Breath sounds equal bilaterally. No accessory muscle use. GASTROINTESTINAL: Abdomen soft, non-tender, nondistended. EXTREMITIES: No cyanosis, or edema. Assessment/Plan Problem List: (1) Tongue malignant neoplasm Status: Acute (2) Pancytopenia Status: Acute (3) Liver cirrhosis Status: Acute (4) PAD (peripheral artery disease) Status: Chronic (5) Breast cancer, left Status: Acute (6) Anemia Status: Acute (7) Thrombocytopenia Status: Acute Assessment 71 y/o with two synchronous malignancies, head and neck cancer and left sided stage III breast cancer who presents with Leg pain 1. Extensive peripheral vascular disease - will benefit from anti-platelet therapy. on ASA for now - Vacular surgery recommending medical management at this time 2. Thrombocytopenia 2/2 to chemotherapy 3. Acute anemia due to chemotherapy and also a history of iron deficiency - getting keven infusion - Transfuse pRBC if Hb drops below 7.5 4. Stage III left breast cancer - outpatient treatment 5. Malnutrition and decreased oral intake - encourage oral intake. - Remeron 15 mg po daily - Boost or Ensure TID with meal 6. Head and Neck cancer: under observation at this time. Plan 1. Febrile Neutropenia: resolved. blood cx negative. on oral Levaquin. which can be discontinued on discharged 2. PAD: on ASA 3. Thrombocytopenia: plt count stable 4. Anemia 2/2 to chemotherapy: Hb above 10. s/p pRBC OK to d/c from Oncology standpoint. F/U in clinic in 1 week. Justus Mercedes MD December 28, 2016 00:01
[2016-12-28 04:00] VITALS: BP 118/62; PULSE 77; RESP 20; TEMP 98.2; O2SAT 98
[2016-12-28] MEDS: ACETAMINOPHEN/HYDROcodone 325 MG/5 MG TAB PO PRN (06:11)
[2016-12-28 08:09] VITALS: BP 114/65; PULSE 73; RESP 18; TEMP 98.3; O2SAT 95
[2016-12-28 09:00] VITALS: PULSE 67
[2016-12-28] MEDS: NYSTAT/DIPHENHY/LIDO MOUTHWASH (Adult) 120ML SWISH-SWAL SCH (09:00)
--- NOTE | 2016-12-28 09:12 | HHI.PR ---
Subjective Remarks resting comfortably. no fever. no complaints. wants to go home today. Objective Vitals Vital Signs Date Time Temp Pulse Resp B/P Pulse Ox O2 Delivery O2 Flow Rate FiO2 12/28/16 08:00 Room Air 12/28/16 04:00 98.2 77 20 118/62 98 12/28/16 00:00 98.1 71 18 132/64 97 12/27/16 21:30 Room Air 12/27/16 20:00 68 12/27/16 20:00 98.2 70 20 118/58 100 12/27/16 20:00 59 12/27/16 16:00 Room Air 12/27/16 16:00 97.7 63 20 134/65 100 12/27/16 12:00 97.9 64 18 117/62 99 12/27/16 12:00 Room Air I/O 12/27/16 12/27/16 12/27/16 12/28/16 12/28/16 12/28/16 07:00 15:00 23:00 07:00 15:00 23:00 Intake Total 120 ml 360 ml 240 ml 0 ml Balance 120 ml 360 ml 240 ml 0 ml Intake Oral 120 ml 360 ml 240 ml 0 ml IV Total 0 ml # Voids 2 4 1 2 # Bowel Movements 2 0 Result Diagram: 12/27/16 0715 12/25/16 0435 Imaging Last Impressions Chest X-Ray 12/25/16 0000 Signed Impressions: Service Date/Time: Sunday, December 25, 2016 09:29 - CONCLUSION: 1. No evidence of pneumonia. 2. Underlying emphysema and scarring. Quincy El MD Aorta w/Runoff CTA 12/21/16 1549 Signed Impressions: Service Date/Time: Wednesday, December 21, 2016 16:15 - CONCLUSION: 1. 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 2. Right lower extremity shows severe outflow disease. There is chronic occlusion of the femoropopliteal bypass as well as the [place] SFA. Reconstitution of the [id number] popliteal artery. Diffuse moderate trifurcation disease. 3. Left lower extremity has chronic occlusion of the common femoral artery and outflow vessels. There is reconstitution of a heavily diseased above the knee popliteal artery. Diffuse moderate disease of the trifurcation vessels. 4. The patient's disease is not amenable to endovascular repair. 5. Cirrhosis. 6. Splenomegaly. 7. Colonic diverticulosis. Jan Ferraro Jr., MD Foot X-Ray 12/21/16 0000 Signed Impressions: Service Date/Time: Wednesday, December 21, 2016 14:32 - CONCLUSION: Mild arthritic changes. Ignacio Hampton MD Objective Remarks GENERAL: This is a well-nourished, well-developed patient, in no apparent distress. CARDIOVASCULAR: Regular rate and regular rhythm without murmurs, gallops, or rubs. RESPIRATORY: Clear to auscultation. Breath sounds equal bilaterally. No wheezes , rales, or rhonchi. GASTROINTESTINAL: Abdomen soft, non-tender, nondistended. Normal, active bowel sounds MUSCULOSKELETAL: Extremities without clubbing, cyanosis, or edema. NEURO: Alert & Oriented x4 to person, place, time, situation. Moves all ext x4 Procedures none Medications and IVs Current Medications Sodium Chloride (NS Flush) 2 ml UNSCH PRN IVF FLUSH AFTER USING IV ACCESS; Start 12/21/16 at 15:45 Heparin Sodium (Porcine) (Heparin Inj) 5,000 units ONCE ONCE IV Last administered on 12/21/16 15:58; Start 12/21/16 at 15:45; Stop 12/21/16 at 15:46; Status DC Heparin Sodium (Porcine) (Heparin Inj) 5,000 units UNSCH PRN IV APTT LESS THAN 25; Start 12/21/16 at 21:45; Status Cancel Heparin Sodium (Porcine) 2500 units 2,500 units UNSCH PRN IV APTT 25 TO 39; Start 12/21/16 at 21:45; Status Cancel Heparin Sodium/ Dextrose (Heparin-D5W Inj) 250 ml @ 0 mls/hr TITRATE IV Last administered on 12/21/16 16:32; Start 12/21/16 at 15:45; Stop 12/21/16 at 18:25; Status DC Iohexol 100 ml 100 ml STK-MED ONCE IV Last administered on 12/21/16 16:42; Start 12/21/16 at 16:42; Stop 12/21/16 at 16:43; Status DC Sodium Chloride (NS 250 ml Inj) 250 ml @ 15 mls/hr ONCE ONCE IV Last administered on 12/21/16 20:26; Start 12/21/16 at 17:15; Stop 12/22/16 at 09:54; Status DC Alprazolam (Xanax) 0.25 mg Q8H PRN PO ANXIETY Last administered on 12/27/16 21: 53; Start 12/21/16 at 18:30 Cholecalciferol (Vitamin D3) 1,000 units DAILY PO Last administered on 09:21; Start 12/22/16 at 09:00 Acetaminophen/ Hydrocodone Bitart ([place] 5-325 Mg) 1 tab Q6H PRN PO PAIN SCALE 1 TO 10 Last administered on 12/28/16 06:11; Start 12/21/16 at 18:30 Nadolol (Corgard) 20 mg DAILY PO Last administered on 12/27/16 09:20; Start 12/22/16 at 09:00 Prochlorperazine Maleate (Compazine) 10 mg Q6H PRN PO NAUSEA OR VOMITING Last administered on 12/24/16 17:33; Start 12/21/16 at 18:30 Pantoprazole Sodium (Protonix) 20 mg DAILY PO Last administered on 12/27/16 09: 21; Start 12/22/16 at 09:00 Aspirin 81 mg 81 mg DAILY PO Last administered on 12/27/16 09:21; Start at 09:00 Iron Sucrose/ Sodium Chloride (Venofer Inj/NS Inj) 110 ml @ 110 mls/hr DAILY IV Last administered on 12/25/16 10:02; Start 12/23/16 at 09:00; Stop 12/25/16 at 09:59; Status DC Ascorbic Acid (Vitamin C) 500 mg DAILY PO Last administered on 12/27/16 09:21; Start 12/23/16 at 09:00 Folic Acid (Folate) 1 mg DAILY PO Last administered on 12/27/16 09:21; Start at 09:00 Multi-Ingredient Mouthwash/Gargle (Magic Mouthwash Adult Liq) 10 ml QID SWISH- SWAL Last administered on 12/27/16 21:53; Start 12/23/16 at 10:15 Potassium Chloride (KCl) 30 meq ONCE ONCE PO Last administered on 12/23/16 16: 22; Start 12/23/16 at 10:15; Stop 12/23/16 at 10:16; Status DC Acetaminophen (Tylenol) 650 mg NOW ONCE PO Last administered on 12/23/16 12:33 ; Start 12/23/16 at 12:30; Stop 12/23/16 at 12:31; Status DC Diphenhydramine HCl (Benadryl) 25 mg NOW ONCE PO Last administered on 12:33; Start 12/23/16 at 12:30; Stop 12/23/16 at 12:31; Status DC Potassium Chloride 10 meq 10 meq ONCE ONCE PO Last administered on 12/24/16 12 :30; Start 12/24/16 at 12:30; Stop 12/24/16 at 12:31; Status DC Cefepime HCl/ Sodium Chloride (Maxipime Inj/NS Inj) 100 ml @ 200 mls/hr Q8H IV Last administered on 12/26/16 12:31; Start 12/25/16 at 12:00; Stop 12/26/16 at 22:38; Status DC Levofloxacin (Levaquin) 500 mg DAILY PO Last administered on 12/27/16 09:20; Start 12/27/16 at 09:00 Acetaminophen (Tylenol) 650 mg COPY HOLDER PO Last administered on 12/26/16 23:43 ; Start 12/26/16 at 23:30; Stop 12/27/16 at 05:00; Status DC Diphenhydramine HCl (Benadryl) 25 mg COPY HOLDER PO Last administered on 12/26/16 23:43; Start 12/26/16 at 23:30; Stop 12/27/16 at 05:00; Status DC A/P Assessment and Plan A/p Chronic PVD with Left foot fourth fifth ischemic toes ischemic changes- Improved Patient seen by vascular surgery no plan for any intervention. ASA daily. follow-up as outpatient. Pancytopenia-likely BM suppression from recent chemotherapy -History of head and neck and infiltrating ductal carcinoma. Iron deficiency- low iron stores thrombocytopenia - improved- Neutropenia- WBC improved no signs of active bleeding. S/P 1 unit RBC and 1 pack platelet transfusion 12/23 Hematology follow-up appreciated; cleared for discharge with no abx. f/u as outpatient. History of hypertension. continue on Nadolol 20 mg daily. Was on Amlodpine as OP - DC here with current readings History of breast cancer continue anastrozole 1 mg daily Hypokalemia- improved Oral sores- no dysphagia- Improved continue on Magic mouthwash tid Discharge Planning dc home today. f/u with pcp, oncology and vascular surgery. see med list. d/w the patient. time spent 35 min. Romel Jones MD December 28, 2016 09:12
[2016-12-28] MEDS ORDERED: Aspirin Chew PO (09:14)
[2016-12-28] MEDS ORDERED: FOLI1TAB4 PO (09:14)
[2016-12-28] MEDS ORDERED: VITA500T PO (09:14)
--- NOTE | 2016-12-28 09:14 | HHI.DCPOC ---
Discharge Care Plan Diagnosis: (1) Thrombocytopenia (2) PAD (peripheral artery disease) (3) Anemia Your Health Problems Are: Bleeding Tendency Goals to Promote Your Health * To prevent worsening of your condition and complications * To maintain your health at the optimal level Directions to Meet Your Goals Take your medications as prescribed Follow your dietary instruction Follow activity as directed Keep your appointments as scheduled Take your immunizations and boosters as scheduled If your symptoms worsen call your PCP, if no PCP go to Urgent Care Center or Emergency Room Smoking is Dangerous to Your Health. Avoid second hand smoke Call the 24-hour hour crisis hotline for domestic abuse at Romel Jones MD December 28, 2016 09:14
--- NOTE | 2016-12-28 09:15 | HHI.DS ---
Discharge Summary Admission Date December 21, 2016 at 17:47 Discharge Date: December 28, 2016 Admitting Diagnosis acute on chronic left leg PVD, pancytopenia (1) Thrombocytopenia ICD Code: D69.6 Diagnosis: Principal (2) Anemia ICD Code: D64.9 Diagnosis: Principal (3) PAD (peripheral artery disease) ICD Code: I73.9 Diagnosis: Principal Procedures none Brief History - From Admission Patient is a 71-year-old female with known history of poorly differentiated head and neck adenocarcinoma, infiltrating ductal carcinoma, history of lung carcinoma liver cirrhosis, anxiety disorder, hypertension who for the past 2 months has been having on and off pain of the foot shooting to the right hip. Pain occursmostly with ambulation but occasionally occurs at rest. Pain so severe thid timr that prompted patient to come into the hospital and was admitted for further evaluation. CTA of the shows chronic ischemic disease. On blood work shows pancytopenia with a platelet of 17. Hemoglobin hemoglobin was 7. Last hemoglobin was 9.4. Patient's followed closely by Dr. Morgan from hematology service. She just had adjuvant chemotherapy with Adriamycin and Cytoxan about 3 weeks ago. Patient currently having pain but appears comfortable. Patient also states that the left fourth and fifth toe for the past 3 weeks now has been turning purple intermittently CBC/BMP: 12/27/16 0715 12/25/16 0435 Significant Findings Laboratory Tests Test 12/26/16 12/27/16 10:29 07:15 Red Blood Count 2.99 MIL/MM3 3.55 MIL/MM3 (4.00-5.30) (4.00-5.30) Hemoglobin 8.8 GM/DL 10.3 GM/DL (11.6-15.3) (11.6-15.3) Hematocrit 25.8 % 30.3 % (35.0-46.0) (35.0-46.0) Red Cell Distribution Width 24.2 % 22.4 % (11.6-17.2) (11.6-17.2) Platelet Count 50 TH/MM3 56 TH/MM3 (150-450) (150-450) Band Neutrophils % 22 % (0-6) Monocytes % 20 % (0-8) Myelocytes 1 % (0-0) Nucleated Red Blood Cells 1 /100 WBC (0-0) Platelet Estimate LOW (NORMAL) Platelet Morphology Comment ENLARGED (NORMAL) Ovalocytes 1+ (NORMAL) Imaging Last Impressions Chest X-Ray 12/25/16 0000 Signed Impressions: Service Date/Time: Sunday, December 25, 2016 09:29 - CONCLUSION: 1. No evidence of pneumonia. 2. Underlying emphysema and scarring. Quincy El MD Aorta w/Runoff CTA 12/21/16 1549 Signed Impressions: Service Date/Time: Wednesday, December 21, 2016 16:15 - CONCLUSION: 1. 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 2. Right lower extremity shows severe outflow disease. There is chronic occlusion of the femoropopliteal bypass as well as the [place] SFA. Reconstitution of the [id number]-fog-[id number] popliteal artery. Diffuse moderate trifurcation disease. 3. Left lower extremity has chronic occlusion of the common femoral artery and outflow vessels. There is reconstitution of a heavily diseased above the knee popliteal artery. Diffuse moderate disease of the trifurcation vessels. 4. The patient's disease is not amenable to endovascular repair. 5. Cirrhosis. 6. Splenomegaly. 7. Colonic diverticulosis. Jan Ferraro Jr., MD Foot X-Ray 12/21/16 0000 Signed Impressions: Service Date/Time: Wednesday, December 21, 2016 14:32 - CONCLUSION: Mild arthritic changes. Ignacio Hampton MD PE at Discharge GENERAL: This is a well-nourished, well-developed patient, in no apparent distress. CARDIOVASCULAR: Regular rate and regular rhythm without murmurs, gallops, or rubs. RESPIRATORY: Clear to auscultation. Breath sounds equal bilaterally. No wheezes , rales, or rhonchi. GASTROINTESTINAL: Abdomen soft, non-tender, nondistended. Normal, active bowel sounds MUSCULOSKELETAL: Extremities without clubbing, cyanosis, or edema. NEURO: Alert & Oriented x4 to person, place, time, situation. Moves all ext x4 Hospital Course Chronic PVD with Left foot fourth fifth ischemic toes ischemic changes- Improved Patient seen by vascular surgery no plan for any intervention. ASA daily. follow-up as outpatient. Pancytopenia-likely BM suppression from recent chemotherapy -History of head and neck and infiltrating ductal carcinoma. Iron deficiency- low iron stores thrombocytopenia - improved- Neutropenia- WBC improved no signs of active bleeding. S/P 1 unit RBC and 1 pack platelet transfusion 12/23 Hematology follow-up appreciated; cleared for discharge with no abx. f/u as outpatient. History of hypertension. continue on Nadolol 20 mg daily. Was on Amlodpine as OP - DC here with current readings History of breast cancer continue anastrozole 1 mg daily Hypokalemia- improved Oral sores- no dysphagia- Improved continue on Magic mouthwash tid Pt Condition on Discharge: Good Discharge Disposition: Discharge Home Discharge Time: > 30 minutes Discharge Instructions DIET: Follow Instructions for: Heart Healthy Diet Activities you can perform: Regular-No Restrictions Follow up Referrals: Oncology PCP Follow-up Vascular Surgery New Medications: Ascorbic Acid (Vitamin C) 500 Mg Tab 500 MG PO DAILY vitamin Days 30 Ref 0 TAB Folic Acid (Folate) 1 Mg Tab 1 MG PO DAILY vitamin Days 30 Ref 0 TAB ([Aspirin Chew]) 81 MG CHEW 81 MG PO DAILY pvd Days 30 Ref 0 TAB.CHEW Continued Medications: Alprazolam (Xanax) 0.25 Mg Tab 0.25 MG PO Q8H PRN ANXIETY Ref 0 TAB Anastrozole (Anastrozole) 1 Mg Tab 1 MG PO DAILY Breast Cancer #30 Ref 0 TAB Cholecalciferol (Vitamin D) 1,000 Unit Tab 1000 UNITS PO DAILY Nutritional Supplement #1 Ref 0 BOTTLE Hydrocodone-Acetaminophen ([place]) 5-325 mg Tab 1 TAB PO Q6H PRN PAIN #30 Ref 0 TAB Nadolol (Nadolol) 20 Mg Tab 20 MG PO DAILY #30 Ref 0 TAB Omeprazole (Omeprazole) 20 Mg Tab 20 MG PO DAILY #90 Ref 3 TAB Prochlorperazine Maleate (Prochlorperazine Maleate) 10 Mg Tab 10 MG PO Q6H PRN NAUSEA OR VOMITING Ref 0 TAB Discontinued Medications: Amlodipine (Amlodipine) 5 Mg Tab 5 MG PO DAILY Blood Pressure Management #30 Ref 0 TAB Romel Jones MD December 28, 2016 09:15
[2016-12-28] MEDS: ASPIRIN 81 MG CHEW TAB PO SCH (11:01)
[2016-12-28] MEDS: FOLIC ACID 1 MG TAB PO SCH (11:01)
[2016-12-28] MEDS: LEVOFLOXACIN 500 MG TAB PO SCH (11:01)
[2016-12-28] MEDS: PANTOPRAZOLE SOD 20 MG DELAYED RELEASE TAB PO SCH (11:01)
[2016-12-28] MEDS: NADOLOL 20 MG TAB PO SCH (11:01)
[2016-12-28] MEDS: ASCORBIC ACID 500 MG TAB PO SCH (11:02)
[2016-12-28] MEDS: CHOLECALCIFEROL (VIT D3) 1000 UNIT TAB PO SCH (11:02)
== END 2016-12-28 11:38 | disposition home or self-care (01) | DRG 300 ==
LOC: NEPD 14:01 → NEDA 17:47 → N04A 22:02
PROVIDERS: ADMIT Internal Medicine; ATTEND Internal Medicine
PROC: 30253R1 (ICD-10-PCS; principal; 2016-12-21)
PROC: 30253N1 (ICD-10-PCS; 2016-12-21)
DX: I73.9 Peripheral vascular disease, unspecified (principal); D61.818 Other pancytopenia; D69.59 Other secondary thrombocytopenia; D64.81 Anemia due to antineoplastic chemotherapy; E61.1 Iron deficiency; K70.30 Alcoholic cirrhosis of liver without ascites; E87.6 Hypokalemia; I10 Essential (primary) hypertension; I25.2 Old myocardial infarction; K21.9 Gastro-esophageal reflux disease without esophagitis; K57.30 Diverticulosis of large intestine without perforation or abscess without bleeding; T45.1X5A Adverse effect of antineoplastic and immunosuppressive drugs, initial encounter; Z79.811 Long term (current) use of aromatase inhibitors; Z85.118 Personal history of other malignant neoplasm of bronchus and lung; Z85.3 Personal history of malignant neoplasm of breast; Z85.810 Personal history of malignant neoplasm of tongue; Z85.42 Personal history of malignant neoplasm of other parts of uterus; F17.210 Nicotine dependence, cigarettes, uncomplicated; Z90.13 Acquired absence of bilateral breasts and nipples
CPT/HCPCS: 36430; 71010; 71020; 73630; 75635; 80048; 80053; 82550; 83010; 83615; 83735; 84484; 85007; 85027; 85049; 85384; 85610; 85730; 86850; 86900; 86901; 86920; 86965; 87040; 93005; 96365; 96375; J0692; J1644; J1756; J7050; P9016; P9035; P9037; Q0164; Q9967

== ENCOUNTER 2017-02-11 14:44 | Inpatient (IN) | payer OTHER, MEDICARE ==
[2017-02-11] VITALS (8 sets, daily range): BP systolic 113–194; BP diastolic 60–98; PULSE 68–82; RESP 12–18; TEMP 97.4–98.6; O2SAT 97–98
[~2017-02-11] VITALS: Ht 162.6 cm; Wt 62.5 kg
[~2017-02-11 14:44] MED LIST changes: -AMLO5TAB2 PO; +Aspirin Chew PO; +FOLI1TAB4 PO; +PROC10TA PO; +VITA500T PO
--- NOTE | 2017-02-11 15:37 | PD ---
HPI Chief Complaint: General Weakness Time Seen by Provider: 15:04 Travel History International Travel<30 days: No Contact w/Intl Traveler<30days: No Traveled to known affect area: No History of Present Illness HPI 71yo F with PMH of poorly differentiated head and neck adenocarcinoma, infiltrating ductal carcinoma, h/o lung CA, liver cirrhosis, anxiety, HTN, presents to the ED with c/o cough and chest congestion for 1 week. States she is unable to cough up the phlegm. +Chest pain from right to left side. It is sharp and worst with breathing and movement. +SOB. Denies any n/v, abdominal pain, focal weakness or numbness. Pt has been feeling worsening generalized weakness in the last 4 days. Last chemo was 4 days ago. Pt follows with oncologist Dr. Mercedes. Pt has been started on azithromycin, day 3. PFSH Past Medical History Hx Anticoagulant Therapy: Yes (81 ASPIRIN) Arthritis: No Asthma: No Anxiety: Yes Depression: Yes Heart Rhythm Problems: No Cancer: Yes (UTERINE CANCER, THROAT CANCER, BREAST CA, tongue) Cardiovascular Problems: Yes (MILD [place]) High Cholesterol: Yes Chemotherapy: Yes (02/07/2017) Chest Pain: No Congestive Heart Failure: No Cirrhosis: Yes COPD: Yes Cerebrovascular Accident: Yes (TIA) Diabetes: No Diminished Hearing: No Endocrine: No Gastrointestinal Disorders: Yes (G-TUBE, REFLUX) GERD: Yes Genitourinary: No Hepatitis: No Hiatal Hernia: No Hypertension: Yes Immune Disorder: No Implanted Vascular Access Dvce: Yes (port l chest) Musculoskeletal: Yes (SCIATICA) Neurologic: Yes Psychiatric: Yes (ANXIETY, DEPRESSION) Reproductive: Yes (UTERINE CANCER, BREAST CA) Respiratory: Yes Immunizations Current: No Migraines: No Myocardial Infarction: Yes Radiation Therapy: Yes (past) Seizures: Yes Sleep Apnea: No Thyroid Disease: No Ulcer: No Past Surgical History Abdominal Surgery: Yes (polyps removed, FISSURE FUSION, G-TUBE PLACEMENT/ removal) AICD: No Appendectomy: Yes Arteriovenous Shunt: No Cardiac Surgery: No Ear Surgery: No Endocrine Surgery: No Eye Surgery: No Genitourinary Surgery: No Gynecologic Surgery: Yes (HYSTERECTOMY, IUD REMOVED, b/l mastectomy) Hysterectomy: Yes Insulin Pump: No Joint Replacement: No Neurologic Surgery: Yes (RIGHT ANGIOGRAM) Oral Surgery: Yes (TONSILLECTOMY) Pacemaker: No Thoracic Surgery: No Other Surgery: Yes Social History Alcohol Use: No Tobacco Use: Yes (08/24 ppd) Substance Use: No Allergies-Medications (Allergen,Severity, Reaction): Coded Allergies: No Known Allergies (Unverified , 02/11/17) Reported Meds & Prescriptions Reported Meds & Active Scripts Active [Aspirin Chew] 81 MG Chew 81 Mg PO DAILY 30 Days Reported Xanax (Alprazolam) 0.25 Mg Tab 0.25 Mg PO Q8H PRN Nadolol 20 Mg Tab 20 Mg PO DAILY Review of Systems Except as stated in HPI: all other systems reviewed are Neg Physical Exam Narrative GENERAL: 71yo F not in distress. SKIN: Focused skin assessment warm/dry. HEAD: Atraumatic. Normocephalic. EYES: Pupils equal and round. No scleral icterus. No injection or drainage. ENT: No nasal bleeding or discharge. Mucous membranes pink and moist. NECK: Trachea midline. No JVD. CARDIOVASCULAR: Regular rate and rhythm. No murmur appreciated. RESPIRATORY: Crackles bibasilar lungs. GASTROINTESTINAL: Abdomen soft, non-tender, nondistended. No rebound tenderness or guarding. MUSCULOSKELETAL: No obvious deformities. No clubbing. No cyanosis. No edema. NEUROLOGICAL: Awake and alert. No obvious cranial nerve deficits. Motor grossly within normal limits. Normal speech. PSYCHIATRIC: Appropriate mood and affect; insight and judgment normal. Data Data Last Documented VS Vital Signs Date Time Temp Pulse Resp B/P Pulse Ox O2 Delivery O2 Flow Rate FiO2 02/11/17 14:46 97.4 82 17 194/98 97 Orders Complete Blood Count With Diff (02/11/17 15:13) Comprehensive Metabolic Panel (02/11/17 15:13) Prothrombin Time / Inr (Pt) (02/11/17 15:13) Act Partial Throm Time (Ptt) (02/11/17 15:13) Electrocardiogram (02/11/17 ) Ckmb (Isoenzyme) Profile (02/11/17 15:13) Troponin I (02/11/17 15:13) Chest, Single Ap (02/11/17 ) Urinalysis - C+S If Indicated (02/11/17 15:13) Urine Culture (02/11/17 15:45) Ct Pulmonary Angiogram (02/11/17 ) Ceftriaxone Inj (Rocephin Inj) (02/11/17 17:00) Diet Heart Healthy (02/11/17 Dinner) Vital Signs (Adult) NESS.Q4H (02/11/17 17:37) Resp Oxygen Jose C Titrat 1-4 L (02/11/17 ) Troponin I (02/11/17 22:00) Troponin I (02/12/17 04:00) Acetaminophen (Tylenol) (02/11/17 17:45) Ondansetron Inj (Zofran Inj) (02/11/17 17:45) Admit Order (Ed Use Only) (02/11/17 17:43) Labs Laboratory Tests Test 02/11/17 02/11/17 15:40 15:45 White Blood Count 4.4 TH/MM3 Red Blood Count 3.59 MIL/MM3 Hemoglobin 11.3 GM/DL Hematocrit 33.8 % Mean Corpuscular Volume 94.2 FL Mean Corpuscular Hemoglobin 31.4 PG Mean Corpuscular Hemoglobin 33.3 % Concent Red Cell Distribution Width 18.8 % Platelet Count 88 TH/MM3 Mean Platelet Volume 10.3 FL Neutrophils (%) (Auto) 91.3 % Lymphocytes (%) (Auto) 6.5 % Monocytes (%) (Auto) 0.8 % Eosinophils (%) (Auto) 0.2 % Basophils (%) (Auto) 1.2 % Neutrophils # (Auto) 4.0 TH/MM3 Lymphocytes # (Auto) 0.3 TH/MM3 Monocytes # (Auto) 0.0 TH/MM3 Eosinophils # (Auto) 0.0 TH/MM3 Basophils # (Auto) 0.1 TH/MM3 CBC Comment AUTO DIFF Differential Total Cells 100 Counted Neutrophils % (Manual) 81 % Band Neutrophils % 7 % Lymphocytes % 7 % Monocytes % 1 % Neutrophils # (Manual) 4.0 TH/MM3 Metamyelocytes 4 % Differential Comment FINAL DIFF MANUAL Toxic Granulation 1+ Platelet Estimate LOW Platelet Morphology Comment NORMAL Red Cell Morphology Comment NORMAL Prothrombin Time 11.4 SEC Prothromb Time International 1.0 RATIO Ratio Activated Partial 30.6 SEC Thromboplast Time Sodium Level 137 MEQ/L Potassium Level 4.3 MEQ/L Chloride Level 103 MEQ/L Carbon Dioxide Level 27.0 MEQ/L Anion Gap 7 MEQ/L Blood Urea Nitrogen 13 MG/DL Creatinine 0.54 MG/DL Estimat Glomerular Filtration 112 ML/MIN Rate Random Glucose 123 MG/DL Calcium Level 8.7 MG/DL Total Bilirubin 0.8 MG/DL Aspartate Amino Transf 22 U/L (AST/SGOT) Alanine Aminotransferase 16 U/L (ALT/SGPT) Alkaline Phosphatase 106 U/L Total Creatine Kinase 38 U/L Troponin I 0.09 NG/ML Total Protein 6.4 GM/DL Albumin 3.0 GM/DL Urine Color LIGHT-YELLOW Urine Turbidity CLEAR Urine pH 6.0 Urine Specific [place] 1.005 Urine Protein NEG mg/dL Urine Glucose (UA) NEG mg/dL Urine Ketones NEG mg/dL Urine Occult Blood NEG Urine Nitrite NEG Urine Bilirubin NEG Urine Urobilinogen LESS THAN 2.0 MG/DL Urine Leukocyte Esterase LARGE Urine RBC 1 /hpf Urine WBC 16 /hpf Urine Squamous Epithelial 1 /hpf Cells Microscopic Urinalysis Comment CULTURE INDICATED MDM Medical Decision Making Medical Screen Exam Complete: Yes Emergency Medical Condition: Yes Interpretation(s) EKG: NSR 71bpm. Normal axis. No ST segment elevation or depression. Differential Diagnosis Pneumonia vs. PE vs. ACS vs. malignancy vs. pleural effusion Narrative Course 71yo F with cough, chest congestion, chest pain and sob. Chest pain is very atypical, achy from right to left. Labs reviewed, no leukocytosis. H/H 11.3/ 33.8. Troponin is mildly elevated at 0.09. Chest pain is atypical, will trend cardiac enzyme. UA showed large leukocyte. WBC 16. Culture indicated. Pt given ceftriaxone. Will order CT angio to r/o PE. CTA showed no PE. Creatinine is 0.54. Diagnosis Primary Impression: Elevated troponin Additional Impression: UTI (urinary tract infection) Qualified Code: N39.0 - Urinary tract infection without hematuria, site unspecified Admitting Information Admitting Physician Requests: it Mary Ron DO Feb 11, 2017 15:36
[2017-02-11 16:07] LABS: BASOPHIL # 0.1 TH/MM3 (0-0.2); BASOPHIL % 1.2 % (0.0-2.0); EOSINOPHIL % 0.2 % (0.0-4.0); HEMATOCRIT 33.8 % (35.0-46.0); LYMPH % 6.5 % (9.0-44.0); LYMPHOCYTE # 0.3 TH/MM3 (1.0-4.8); MEAN CELL VOLUME 94.2 FL (80.0-100.0); MEAN CORPUSCULAR HEMOGLOBIN 31.4 PG (27.0-34.0); MEAN CORPUSCULAR HGB CONC 33.3 % (32.0-36.0); MONO % 0.8 % (0.0-8.0); NEUT % 91.3 % (16.0-70.0); PLATELET COUNT 88 TH/MM3 (150-450); RED BLOOD COUNT 3.59 MIL/MM3 (4.00-5.30); RED CELL DISTRIBUTION WIDTH 18.8 % (11.6-17.2); WHITE BLOOD COUNT 4.4 TH/MM3 (4.0-11.0)
[2017-02-11 16:11] LABS: HEMO FLAGS AUTO DIFF
[2017-02-11 16:19] LABS: APTT (PATIENT) 30.6 SEC (24.3-30.1); PROTHROMBIN TIME - PATIENT 11.4 SEC (9.8-11.6)
--- NOTE | 2017-02-11 16:20 | RADRPT ---
EXAM DATE/TIME: 02/11/2017 15:51 [facility] COMPARISON: CHEST SINGLE AP, December 21, 2016, 16:04. INDICATIONS : Cough, congestion, and shortness of breath. MEDICAL HISTORY : Chronic obstructive pulmonary disease. Carcinoma, breast. SURGICAL HISTORY : Mastectomy, bilateral. [id number]. ENCOUNTER: Initial ACUITY: 3 days PAIN SCORE: 2/10 LOCATION: chest FINDINGS: A single view of the chest demonstrates the lungs to be symmetrically aerated without evidence of mas s, infiltrate or effusion. The cardiomediastinal contours are unremarkable. Osseous structures are intact. There is a CT compatible [id number] in place from the left subclavian approach with the ti p overlying the upper SVC. CONCLUSION: No acute disease. Ignacio Maciel MD on February 11, 2017 at 16:18 Board Certified Radiologist. This report was verified electronically.
[2017-02-11 16:22] LABS: BLOOD, URINE NEG (NEG); COMMENT (UR) CULTURE INDICATED; CULTURE IF INDICATED CULTURE INDICATED; GLUCOSE,URINE NEG (NEG); KETONE, URINE NEG (NEG); NITRITE,URINE NEG (NEG); SQUAMOUS EPITHELIAL CELL URINE 1 /hpf (0-5); URINE COLOR LIGHT-YELLOW (YELLW/STRAW)
[2017-02-11 16:35] LABS: ALT (GPT) 16 U/L (10-53); ANION GAP 7 MEQ/L (5-15); AST (GOT) 22 U/L (15-37); BLOOD UREA NITROGEN 13 MG/DL (7-18); CHLORIDE 103 MEQ/L (98-107); GLOMERULAR FILTRATION RATE 112 ML/MIN (>89); POTASSIUM 4.3 MEQ/L (3.5-5.1); SODIUM (NA) 137 MEQ/L (136-145)
[2017-02-11 16:39] LABS: ALKALINE PHOSPHATASE 106 U/L (45-117); CREATINE KINASE 38 U/L (26-192); TOTAL BILIRUBIN ADULT 0.8 MG/DL (0.2-1.0)
[2017-02-11] MEDS ORDERED: cefTRIAXone INJ 1,000 MG in SODIUM CHLORIDE 0.9% INJ 100 ML IV ONE (17:00)
[2017-02-11 17:12] LABS: BANDS 7 % (0-6); METAMYELOCYTES 4 % (0-1); POLYS (SEG NEUTROPHILS) 81 % (16-70); WBC DIFF SAMPLE 100
[2017-02-11 17:13] LABS: PLATELET ESTIMATE SMEAR LOW (NORMAL); PLATELET MORPHOLOGY NORMAL (NORMAL); SCAN/DIFF FINAL DIFF MANUAL; TOXIC GRANULATION 1+ (NORMAL)
[2017-02-11] MEDS ORDERED: ACETAMINOPHEN 325 MG TAB PO PRN (17:45)
[2017-02-11] MEDS ORDERED: ONDANSETRON HCL 4 MG/2 ML VIAL IV PUSH PRN (17:45)
[2017-02-11] MEDS ORDERED: IOHEXOL 350 MG/ML 10 ML VIAL (for RAD DIAG) IV ONE (17:50)
--- NOTE | 2017-02-11 18:02 | RADRPT ---
EXAM DATE/TIME: 02/11/2017 17:31 CORRECTION Corrected on: February 11, 2017; [facility] COMPARISON: CT ABDOMEN & PELVIS W CONTRAST, March 27, 2015, 13:01. INDICATIONS : Chest pain and shortness of breath for one week. IV CONTRAST: 70 cc Omnipaque 350 (iohexol) IV RADIATION DOSE: 5.9 CTDIvol (mGy) MEDICAL HISTORY : Stroke. Carcinoma, breast. Seizures. SURGICAL HISTORY : Hysterectomy. Mastectomy, bilateral. ENCOUNTER: Initial ACUITY: 1 week PAIN SCALE: 5/10 LOCATION: Bilateral chest TECHNIQUE: Volumetric scanning of the chest was performed using a pulmonary embolism protocol MIP images were re constructed. Using automated exposure control and adjustment of the mA and/or kV according to patien t size, radiation dose was kept as low as reasonably achievable to obtain optimal diagnostic quality images. DICOM format image data is available electronically for review and comparison. FINDINGS: PULMONARY ARTERIES: No filling defects are seen in the pulmonary arteries through the segmental level. LUNGS: There is increased density along the medial anterior right lung likely from prior radiation given its straight lateral margin. There is patchy minimal density in the right upper lobe, right middle lobe, right lower lobe, and to a lesser degree the medial posterior left lower lobe. There is a 3 mm nodul e at the lateral right lower lung. PLEURAE: There is no pleural thickening or pleural effusion. MEDIASTINUM: There is good visualization of the great vessels of the middle mediastinum. No evidence of mediastin al or hilar adenopathy/mass. Coronary artery calcifications are present. MUSCULOSKELETAL: Within normal limits for patient age. MISCELLANEOUS: The visualized upper abdominal organs demonstrate no acute abnormality. There is an elongated 10.6 cm area of fluid seen in the left upper chest likely related to post surgical change from prior mastect cristina. The patient is status post bilateral mastectomy. The liver appears nodular with hypertrophy of t he left lobe and varices concern for cirrhosis and portal hypertension. CONCLUSION: 1. No pulmonary embolus. 2. Suspected postradiation change of the medial lower right lung. 3. Minimal patchy areas of suspected consolidation or atelectasis. 4. 3 mm nodule in the lateral right midlung which was present on a prior CT examination in 03/27/2015 and is unchanged. It likely represent a benign finding such as a granuloma. 5. Cirrhotic liver. 6. Suspected postoperative fluid collection the left chest. The patient is status post bilateral mast ectomy. Ignacio Maciel MD on February 11, 2017 at 17:50 Board Certified Radiologist. This report was verified electronically. Ignacio Maciel MD on February 11, 2017 at 18:03 Board Certified Radiologist. This report was verified electronically.
[2017-02-11] MEDS ORDERED: RESP: ALBUTEROL 1.25 MG/3 ML NEB (PRN) NEB (18:15)
[2017-02-11] MEDS ORDERED: ENALAPRILAT 1.25 MG/ML VIAL IV PUSH PRN (18:15)
--- NOTE | 2017-02-11 18:17 | HHI.HP ---
HPI Service [place] [facility] Primary Care Physician Unknown Admission Diagnosis Elevated troponin, UTI Diagnoses: (1) possible pneumonia Diagnosis: Principal Chief Complaint: sob Travel History International Travel<30 Days: No Contact w/Intl Traveler <30 Da: No Traveled to Known Affected Are: No History of Present Illness patient is a 71 y/o female with history of head and neck cancer, breast cancer, PVD and hypertension who presented to ER with sob. she says that she's had sob and cough for the past few days. she had her chemo on Monday and was prescribed Z-pack and Fluticasone by her oncologist. she says that despite taking the antibiotic her cough and sob didn't improve. she denies any fever but had some chills at home. she says that she had some mild chest discomfort which has already resolved. she also reports occasional urinary dribbling with no dysuria. she says that she decided to come to ER after the antibiotic didn't help her with the cough. Review of Systems Constitutional: COMPLAINS OF: Chills, DENIES: Fever, Weight loss, Night Sweats Eyes: DENIES: Blurred vision, Diplopia, Vision loss, Double Vision Ears, nose, mouth, throat: DENIES: Tinnitus, Vertigo, Throat pain, Epistaxis Respiratory: COMPLAINS OF: Cough, Shortness of breath, DENIES: Apneas, Snoring , Wheezing, Hemoptysis, Sputum production Cardiovascular: DENIES: Chest pain, Palpitations, Syncope, Dyspnea on Exertion , PND, Lower Extremity Edema, Orthopnea, Claudication Gastrointestinal: DENIES: Abdominal pain, Black stools, Bloody stools, Constipation, Diarrhea, Nausea, Vomiting, Difficulty Swallowing, Anorexia Genitourinary: DENIES: Urinary frequency, Urgency, Hematuria, Dysuria Musculoskeletal: DENIES: Joint pain, Muscle aches, Stiffness, Joint Swelling Integumentary: DENIES: Rash Neurologic: DENIES: Abnormal gait, Headache, Localized weakness, Paresthesias, Seizures, Speech Problems, Tremor, Poor Balance Psychiatric: DENIES: Anxiety, Confusion, Mood changes, Depression, Hallucinations, Agitation, Suicidal Ideation, Homicidal Ideation, Delusions urinary dribbling. Past Family Social History Past Medical History head and neck cancer breast cancer hypertension PVD Past Surgical History hysterectomy mastectomy tonsillectomy appendectomy Reported Medications nadolol xanax aspirin Allergies: Coded Allergies: No Known Allergies (Unverified , 02/11/17) Active Ordered Medications Current Medications Ceftriaxone Sodium/Sodium Chloride (Rocephin Inj/NS Inj) 100 ml @ 200 mls/hr ONCE ONCE IV Last administered on 02/11/17 17:34; Start 02/11/17 at 17:00; Stop 02/11/17 at 17:29; Status DC Acetaminophen (Tylenol) 650 mg Q4H PRN PO FEVER/PAIN 1-10; Start 02/11/17 at 17 :45 Ondansetron HCl (Zofran Inj) 4 mg Q8HR PRN IV PUSH NAUSEA; Start 02/11/17 at 17 :45 Iohexol (Omnipaque 350 Inj) 70 ml STK-MED ONCE IV Last administered on 17:50; Start 02/11/17 at 17:50; Stop 02/11/17 at 17:51; Status DC Family History not related to this presentation. Social History smokes a few cigarettes a day. Physical Exam Vital Signs Vital Signs Date Time Temp Pulse Resp B/P Pulse Ox O2 Delivery O2 Flow Rate FiO2 02/11/17 14:46 97.4 82 17 194/98 97 Physical Exam GENERAL: This is a well-nourished, well-developed patient, in no apparent distress. SKIN: No rashes, ecchymoses or lesions. Cool and dry. HEAD: Atraumatic. Normocephalic. No temporal or scalp tenderness. EYES: Pupils equal round and reactive. Extraocular motions intact. No scleral icterus. No injection or drainage. ENT: Nose without bleeding, purulent drainage or septal hematoma. Throat without erythema, tonsillar hypertrophy or exudate. Uvula midline. Airway patent. NECK: Trachea midline. No JVD or lymphadenopathy. Supple, nontender, no meningeal signs. CARDIOVASCULAR: Regular rate and rhythm without murmurs, gallops, or rubs. RESPIRATORY: Clear to auscultation. Breath sounds equal bilaterally. No wheezes , rales, or rhonchi. GASTROINTESTINAL: Abdomen soft, non-tender, nondistended. No hepato-splenomegaly , or palpable masses. No guarding. MUSCULOSKELETAL: Extremities without clubbing, cyanosis, or edema. No joint tenderness, effusion, or edema noted. No calf tenderness. Negative Homans sign bilaterally. NEUROLOGICAL: Awake and alert. Cranial nerves II through XII intact. Motor and sensory grossly within normal limits. Five out of 5 muscle strength in all muscle groups. Normal speech. Laboratory Laboratory Tests Test 02/11/17 02/11/17 15:40 15:45 White Blood Count 4.4 Red Blood Count 3.59 Hemoglobin 11.3 Hematocrit 33.8 Mean Corpuscular Volume 94.2 Mean Corpuscular Hemoglobin 31.4 Mean Corpuscular Hemoglobin 33.3 Concent Red Cell Distribution Width 18.8 Platelet Count 88 Mean Platelet Volume 10.3 Neutrophils (%) (Auto) 91.3 Lymphocytes (%) (Auto) 6.5 Monocytes (%) (Auto) 0.8 Eosinophils (%) (Auto) 0.2 Basophils (%) (Auto) 1.2 Neutrophils # (Auto) 4.0 Lymphocytes # (Auto) 0.3 Monocytes # (Auto) 0.0 Eosinophils # (Auto) 0.0 Basophils # (Auto) 0.1 CBC Comment AUTO DIFF Differential Total Cells 100 Counted Neutrophils % (Manual) 81 Band Neutrophils % 7 Lymphocytes % 7 Monocytes % 1 Neutrophils # (Manual) 4.0 Metamyelocytes 4 Differential Comment FINAL DIFF MANUAL Toxic Granulation 1+ Platelet Estimate LOW Platelet Morphology Comment NORMAL Red Cell Morphology Comment NORMAL Prothrombin Time 11.4 Prothromb Time International 1.0 Ratio Activated Partial 30.6 Thromboplast Time Sodium Level 137 Potassium Level 4.3 Chloride Level 103 Carbon Dioxide Level 27.0 Anion Gap 7 Blood Urea Nitrogen 13 Creatinine 0.54 Estimat Glomerular Filtration 112 Rate Random Glucose 123 Calcium Level 8.7 Total Bilirubin 0.8 Aspartate Amino Transf 22 (AST/SGOT) Alanine Aminotransferase 16 (ALT/SGPT) Alkaline Phosphatase 106 Total Creatine Kinase 38 Troponin I 0.09 Total Protein 6.4 Albumin 3.0 Urine Color LIGHT-YELLOW Urine Turbidity CLEAR Urine pH 6.0 Urine Specific [place] 1.005 Urine Protein NEG Urine Glucose (UA) NEG Urine Ketones NEG Urine Occult Blood NEG Urine Nitrite NEG Urine Bilirubin NEG Urine Urobilinogen LESS THAN 2.0 Urine Leukocyte Esterase LARGE Urine RBC 1 Urine WBC 16 Urine Squamous Epithelial 1 Cells Microscopic Urinalysis Comment CULTURE INDICATED Date/Time Procedure Status Source Growth 02/11/17 15:45 Urine Culture Worksheet Urine Clean Catch Pending Result Diagram: 02/11/17 1540 02/11/17 1540 Imaging Last Impressions Chest X-Ray 02/11/17 0000 Signed Impressions: Service Date/Time: Saturday, February 11, 2017 15:51 - CONCLUSION: No acute disease. Ignacio Maciel MD EKG; normal sinus rhythm with no acute ST-T changes Assessment and Plan Assessment and Plan A/P - cough/ sob - possible pneumonia vs bronchitis- no relief with outpatient antibiotic therapy with Zithromax received a dose of IV Rocephin in ER- continue with IV antibiotic- CT chest pending- will start neb treatment- oxygen as needed to keep O2 sat >90% will consider pulmonary and/ or oncology consult if no improvement within the next 24 hrs. -elevated troponin- with normal EKG- now pain free- will continue aspirin and nadolol- will trend the cardiac enzymes -abnormal UA- possible UTI- continue antibiotic and follow the UC. -history of head and neck cancer/ breast cancer- being followed up by -anemia/ thrombocytopenia- chronic- will monitor -PVD- continue aspirin- evaluated by vascular surgery last admission and recommended outpatient f/u Discussed Condition With ER physician and the patient. Physician Certification 2 Midnight Certification Type: Admission for Inpatient Services Order for Inpatient Services The services are ordered in accordance with Medicare regulations or non- Medicare payer requirements, as applicable. In the case of services not specified as inpatient-only, they are appropriately provided as inpatient services in accordance with the 2-midnight benchmark. Estimated LOS (days): 2 days is the estimated time the patient will need to remain in the hospital, assuming treatment plan goals are met and no additional complications. Post-Hospital Plan: Home Romel Jones MD Feb 11, 2017 18:17
[2017-02-11] MEDS: RESP: ALBUTEROL 2.5 MG/IPRATROPIUM 0.5 MG NEB (SCH) NEB (21:08)
[2017-02-11] MEDS: ALPRAZolam 0.25 MG TAB PO PRN (23:42)
[2017-02-12] VITALS (27 sets, daily range): BP systolic 96–129; BP diastolic 57–70; PULSE 63–84; RESP 14–19; TEMP 97.7–99; O2SAT 92–99
[2017-02-12] MEDS ORDERED: ACETAMINOPHEN/HYDROcodone 325 MG/5 MG TAB PO ONE (00:30)
[2017-02-12] MEDS: RESP: ALBUTEROL 2.5 MG/IPRATROPIUM 0.5 MG NEB (SCH) NEB (08:04)
--- NOTE | 2017-02-12 08:29 | HHI.PR ---
Subjective Remarks f/u; sob/cough remains afebrile. in no distress but still has some cough. reported some improvement compared to yesterday. still with on and off left sided chest pain. Objective Vitals Vital Signs Date Time Temp Pulse Resp B/P Pulse Ox O2 Delivery O2 Flow Rate FiO2 02/12/17 08:04 92 21 02/12/17 07:15 97.7 73 19 129/70 97 02/12/17 05:00 66 02/12/17 04:00 67 02/12/17 03:00 68 02/12/17 03:00 98.5 68 14 96/64 95 02/12/17 02:00 68 02/12/17 01:00 68 02/12/17 00:00 70 02/11/17 23:00 68 02/11/17 23:00 98.6 70 12 113/60 97 02/11/17 22:00 68 02/11/17 21:13 98 21 02/11/17 21:00 70 02/11/17 20:30 98.4 70 16 156/77 98 02/11/17 19:37 170/76 02/11/17 19:18 69 18 188/86 98 Room Air 02/11/17 14:46 97.4 82 17 194/98 97 I/O 02/11/17 02/11/17 02/11/17 02/12/17 02/12/17 02/12/17 07:00 15:00 23:00 07:00 15:00 23:00 Intake Total 720 ml Balance 720 ml Intake Oral 720 ml # Voids 2 Result Diagram: 02/11/17 1540 02/11/17 1540 Imaging Last Impressions Chest X-Ray 02/11/17 0000 Signed Impressions: Service Date/Time: Saturday, February 11, 2017 15:51 - CONCLUSION: No acute disease. Ignacio Maciel MD CT Angiography 02/11/17 0000 Signed Impressions: Service Date/Time: Saturday, February 11, 2017 17:31 - CONCLUSION: 1. No pulmonary embolus. 2. Suspected postradiation change of the medial lower right lung. 3. Minimal patchy areas of suspected consolidation or atelectasis. 4. 3 mm nodule in the lateral right midlung which was present on a prior CT examination in 03/27/2015 and is unchanged. It likely represent a benign finding such as a granuloma. 5. Cirrhotic liver. 6. Suspected postoperative fluid collection the left chest. The patient is status post bilateral mastectomy. Ignacio Maciel MD Objective Remarks GENERAL: This is a well-nourished, well-developed patient, in no apparent distress. CARDIOVASCULAR: Regular rate and regular rhythm without murmurs, gallops, or rubs. RESPIRATORY: Clear to auscultation. Breath sounds equal bilaterally. No wheezes , rales, or rhonchi. GASTROINTESTINAL: Abdomen soft, non-tender, nondistended. Normal, active bowel sounds MUSCULOSKELETAL: Extremities without clubbing, cyanosis, or edema. NEURO: Alert & Oriented x4 to person, place, time, situation. Moves all ext x4 Procedures none Medications and IVs Current Medications Ceftriaxone Sodium/Sodium Chloride (Rocephin Inj/NS Inj) 100 ml @ 200 mls/hr ONCE ONCE IV Last administered on 02/11/17 17:34; Start 02/11/17 at 17:00; Stop 02/11/17 at 17:29; Status DC Acetaminophen (Tylenol) 650 mg Q4H PRN PO FEVER/PAIN 1-10 Last administered on 02/11/17 20:18; Start 02/11/17 at 17:45 Ondansetron HCl (Zofran Inj) 4 mg Q8HR PRN IV PUSH NAUSEA; Start 02/11/17 at 17 :45 Iohexol (Omnipaque 350 Inj) 70 ml STK-MED ONCE IV Last administered on 17:50; Start 02/11/17 at 17:50; Stop 02/11/17 at 17:51; Status DC Alprazolam (Xanax) 0.25 mg Q8H PRN PO ANXIETY Last administered on 02/11/17 23 :42; Start 02/11/17 at 18:00 Nadolol (Corgard) 20 mg DAILY PO ; Start 02/12/17 at 09:00 Aspirin (Aspirin Chew) 81 mg DAILY PO ; Start 02/12/17 at 09:00 Albuterol/ Ipratropium (Duoneb Neb) 1 ampule Q6HR WHILE AWAKE NEB NEB Last administered on 02/12/17 08:04; Start 02/11/17 at 20:00; Stop 02/12/17 at 09:00 Albuterol Sulfate (Albuterol Neb) 1.25 mg Q2HR NEB PRN NEB SHORTNESS OF BREATH ; Start 02/11/17 at 18:15 Guaifenesin (Robitussin Liq) 200 mg Q4H PRN PO COUGH; Start 02/11/17 at 18:15 Enalaprilat 1.25 mg 1.25 mg Q8H PRN IV PUSH SBP> OR = 180, DBP> OR = 100 Last administered on 02/11/17 19:23; Start 02/11/17 at 18:15 Levofloxacin/ Dextrose (Levaquin 500 Mg Premix Inj) 100 ml @ 100 mls/hr Q24H IV ; Start 02/12/17 at 19:00 Acetaminophen/ Hydrocodone Bitart ([place] 5-325 Mg) 1 tab ONCE ONCE PO Last administered on 02/12/17 00:40; Start 02/12/17 at 00:30; Stop 02/12/17 at 00:31 ; Status DC A/P Assessment and Plan A/P - cough/ sob - possible pneumonia vs bronchitis- no relief with outpatient antibiotic therapy with Zithromax- reports some improvement CTA chest with no pulmonary embolus. Suspected postradiation change of the medial lower right lung. Minimal patchy areas of suspected consolidation or atelectasis. 3 mm nodule in the lateral right midlung which was present on a prior CT examination in 03/27/2015 and is unchanged. It likely represent a benign finding such as a granuloma. Cirrhotic liver. Suspected postoperative fluid collection the left chest. The patient is status post bilateral mastectomy. continue with IV antibiotic- CT chest pending- contine neb treatment- oxygen as needed to keep O2 sat >90% -elevated troponin with on and off chest pain- will continue aspirin and nadolol-consult cardiology. -abnormal UA- possible UTI- continue antibiotic and follow the UC. -history of head and neck cancer/ breast cancer- being followed up by -anemia/ thrombocytopenia- chronic and fairly stable- will monitor -PVD- continue aspirin- evaluated by vascular surgery last admission and recommended outpatient f/u Discharge Planning within the next 24-48 hrs pending the clinical course. Romel Jones MD Feb 12, 2017 08:29
[2017-02-12] MEDS: guaiFENesin SOLUTION 200 MG/10 ML CUP PO PRN ×2 (09:24→20:55)
[2017-02-12] MEDS: ASPIRIN 81 MG CHEW TAB PO SCH (09:24)
[2017-02-12] MEDS: NADOLOL 20 MG TAB PO SCH (09:24)
[2017-02-12] MEDS: ACETAMINOPHEN/HYDROcodone 325 MG/5 MG TAB PO PRN ×3 (09:25→20:55)
--- NOTE | 2017-02-12 11:16 | MB ---
cc: HANSA BROWER MD DATE OF CONSULTATION: 02/12/2017 REASON FOR CONSULTATION Atypical chest pain and abnormal troponin. HISTORY OF PRESENT ILLNESS The patient is a pleasant 71-year-old woman with a history of what she describes as small/slight heart attack years ago but this was not well worked up, as well as head and neck cancer, PVD and tobacco abuse, who presented with productive cough and shortness of breath after relatively recent chemotherapy. As part of her workup her troponin was taken which was mildly abnormal and thus, I was consulted. Currently the patient still has a productive cough but no significant shortness of breath. She notes a "pinching sensation in her left chest which is worse when she twists or turns positions, she does not think it is related to her heart. She denies any other chest pain and no current shortness of breath. She denies lightheadedness, dizziness or syncope. PAST MEDICAL HISTORY 1. 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 2. Breast cancer. 3. Head and neck cancer. 4. Hypertension. 5. PVD. 6. Alcoholic cirrhosis. CURRENT MEDICATIONS 1. Levaquin. 2. Nadelol. 3. Aspirin. 4. Guaifenesin. ALLERGIES NO KNOWN DRUG ALLERGIES. PHYSICAL EXAMINATION VITAL SIGNS: Afebrile, pulse 72, respiratory rate 19, BP 129/70, sating 92% on 2 liters. GENERAL: Pleasant woman who appears older than her stated age, in no distress. NECK: No JVD. LUNGS: Decreased breath sounds with scattered rhonchi. CARDIOVASCULAR: Regular rate and rhythm. No murmurs appreciated. ABDOMEN: Benign. EXTREMITIES: No edema. LABORATORY DATA Sodium 137, potassium 4.3, chloride 103, bicarb 27.0, BUN 13, creatinine 0.54, glucose 123, troponin 0.09, 0.1, 0.12. INR is 1.0. White count 4.4, hematocrit 33.8, platelets 88. CTA of the chest showed other findings included post radiation changes of the medial lower lung, patchy areas of consolidation and atelectasis and unchanged 3 mm lung nodule. EKG showed sinus rhythm with nonspecific ST changes. IMPRESSION 1. Atypical chest pain. The patient's chest pain sounds muscular. I will have her undergo a nuclear stress test. 2. Abnormal troponin. This is a nonspecific finding. She will undergo a stress test as above. I will also have her undergo an echocardiogram to evaluate her LV function given her shortness of breath but I suspect that is pulmonary related. Further recommendations will be based on her clinical course. Thank you again for the opportunity to participate in this patient's care. MD LEN Crouch/RONALD /10:19 AM /10:57 AM
--- NOTE | 2017-02-12 11:52 | EKG ---
Date Performed: 02/11/2017 Time Performed: 20:52:00 PTAGE: 71 years EKG: Sinus arrhythmia Since previous tracing, no significant change noted Normal ECG PREVIOUS TRACING : 02/11/2017 15.24.33 DOCTOR: Paras Ambrocio Interpretating Date/Time 02/12/2017 11:51:05
--- NOTE | 2017-02-12 11:53 | EKG ---
Date Performed: 02/11/2017 Time Performed: 15:24:33 PTAGE: 71 years EKG: Sinus rhythm Since previous tracing, no significant change noted NORMAL ECG PREVIOUS TRACING : 12/21/2016 15.42 DOCTOR: Paras Ambrocio Interpretating Date/Time 02/12/2017 11:51:19
[2017-02-12] MEDS: LEVOFLOXACIN 500 MG PREMIX INJ 100 ML IV SCH (18:16)
[2017-02-13] VITALS (26 sets, daily range): BP systolic 81–122; BP diastolic 51–73; PULSE 65–94; RESP 14–20; TEMP 97.9–99.1; O2SAT 92–100
[2017-02-13] MEDS: guaiFENesin SOLUTION 200 MG/10 ML CUP PO PRN ×3 (04:52→22:11)
[2017-02-13] MEDS: ACETAMINOPHEN/HYDROcodone 325 MG/5 MG TAB PO PRN ×3 (04:53→22:12)
--- NOTE | 2017-02-13 08:39 | PD.CARD.PN ---
Subjective Subjective Remarks doing well, no complaints. Objective Medications Administered Medications Medications (Trade) Dose Ordered Sig/Maria Luisa Route PRN Reason Start Time Stop Time Status Last Admin Dose Admin Acetaminophen (Tylenol) 650 mg Q4H PRN PO FEVER/PAIN 5 OR < 02/11/17 17:45 02/11/17 20:18 Alprazolam (Xanax) 0.25 mg Q8H PRN PO ANXIETY 02/11/17 18:00 02/11/17 23:42 Nadolol (Corgard) 20 mg DAILY PO 02/12/17 09:00 02/12/17 09:24 Aspirin (Aspirin Chew) 81 mg DAILY PO 02/12/17 09:00 02/12/17 09:24 Guaifenesin (Robitussin Liq) 200 mg Q4H PRN PO COUGH 02/11/17 18:15 02/13/17 04:52 Enalaprilat 1.25 mg 1.25 mg Q8H PRN IV PUSH SBP> OR = 180, DBP> OR = 100 02/11/17 18:15 02/11/17 19:23 Levofloxacin/ Dextrose (Levaquin 500 Mg Premix Inj) 100 ml @ 100 mls/hr Q24H IV 02/12/17 19:00 02/12/17 18:16 Acetaminophen/ Hydrocodone Bitart ([place] 5-325 Mg) 1 tab Q6H PRN PO PAIN >5 02/12/17 08:30 02/13/17 04:53 Vital Signs / I&O Vital Signs Date Time Temp Pulse Resp B/P Pulse Ox O2 Delivery O2 Flow Rate FiO2 02/13/17 06:00 76 02/13/17 05:00 94 02/13/17 04:00 77 02/13/17 03:00 76 02/13/17 03:00 99.1 78 14 97/51 94 02/13/17 02:00 72 02/13/17 01:00 76 02/13/17 00:00 73 02/12/17 23:00 99.0 77 14 103/57 96 02/12/17 23:00 74 02/12/17 22:00 70 02/12/17 21:02 97 21 02/12/17 21:00 72 02/12/17 20:16 75 02/12/17 19:00 68 02/12/17 19:00 98.7 75 14 117/67 98 02/12/17 18:00 66 02/12/17 17:00 69 02/12/17 16:00 71 02/12/17 15:00 69 02/12/17 15:00 98.2 67 18 118/68 99 02/12/17 14:00 68 02/12/17 13:00 66 02/12/17 12:00 73 02/12/17 11:00 98.1 84 19 120/64 99 02/12/17 11:00 75 02/12/17 10:31 20 02/12/17 10:00 73 02/12/17 09:00 72 I/O 02/12/17 02/12/17 02/12/17 02/13/17 02/13/17 02/13/17 07:00 15:00 23:00 07:00 15:00 23:00 Intake Total 720 ml 360 ml 440 ml Output Total 900 ml 400 ml Balance 720 ml -540 ml 40 ml Intake Oral 720 ml 360 ml 440 ml Output Urine Total 900 ml 400 ml # Voids 2 Physical Exam GENERAL: This is a well-nourished, well-developed patient, in no apparent distress. CARDIOVASCULAR: Regular rate and rhythm without murmurs, gallops, or rubs. RESPIRATORY: Clear to auscultation. Breath sounds equal bilaterally. No wheezes , rales, or rhonchi. GASTROINTESTINAL: Abdomen soft, non-tender, nondistended. Normal active bowel sounds MUSCULOSKELETAL: Extremities without clubbing, cyanosis, or edema. NEURO: Alert & Oriented x4 to person, place, time, situation. Moves all ext x4 Imaging Last Impressions Chest X-Ray 02/11/17 0000 Signed Impressions: Service Date/Time: Saturday, February 11, 2017 15:51 - CONCLUSION: No acute disease. Ignacio Maciel MD CT Angiography 02/11/17 0000 Signed Impressions: Service Date/Time: Saturday, February 11, 2017 17:31 - CONCLUSION: 1. No pulmonary embolus. 2. Suspected postradiation change of the medial lower right lung. 3. Minimal patchy areas of suspected consolidation or atelectasis. 4. 3 mm nodule in the lateral right midlung which was present on a prior CT examination in 03/27/2015 and is unchanged. It likely represent a benign finding such as a granuloma. 5. Cirrhotic liver. 6. Suspected postoperative fluid collection the left chest. The patient is status post bilateral mastectomy. Ignacio Maciel MD Assessment and Plan Problem List: (1) Elevated troponin Assessment and Plan: non-specific, for nuc stress today. (2) Atypical chest pain Assessment and Plan: for nuc stress today. (3) Dyspnea Assessment and Plan: likely copd related, echo today. Assessment and Plan If her testing is normal she could likely be discharged later today. Juan Negrete MD Feb 13, 2017 08:39
[2017-02-13] MEDS: ASPIRIN 81 MG CHEW TAB PO SCH (09:32)
[2017-02-13] MEDS: NADOLOL 20 MG TAB PO SCH (09:32)
[2017-02-13] MEDS: ALPRAZolam 0.25 MG TAB PO PRN (09:38)
--- NOTE | 2017-02-13 11:48 | HHI.PR ---
Subjective Remarks in no distress. has mild sob and some nonproductive cough. has on and off mild chest pain. no fever. Objective Vitals Vital Signs Date Time Temp Pulse Resp B/P Pulse Ox O2 Delivery O2 Flow Rate FiO2 02/13/17 10:51 92 02/13/17 10:00 74 02/13/17 09:00 74 02/13/17 08:00 74 02/13/17 07:00 98.3 79 20 81/51 96 02/13/17 07:00 75 02/13/17 06:00 76 02/13/17 05:00 94 02/13/17 04:00 77 02/13/17 03:00 76 02/13/17 03:00 99.1 78 14 97/51 94 02/13/17 02:00 72 02/13/17 01:00 76 02/13/17 00:00 73 02/12/17 23:00 99.0 77 14 103/57 96 02/12/17 23:00 74 02/12/17 22:00 70 02/12/17 21:02 97 21 02/12/17 21:00 72 02/12/17 20:16 75 02/12/17 19:00 68 02/12/17 19:00 98.7 75 14 117/67 98 02/12/17 18:00 66 02/12/17 17:00 69 02/12/17 16:00 71 02/12/17 15:00 69 02/12/17 15:00 98.2 67 18 118/68 99 02/12/17 14:00 68 02/12/17 13:00 66 02/12/17 12:00 73 I/O 02/12/17 02/12/17 02/12/17 02/13/17 02/13/17 02/13/17 07:00 15:00 23:00 07:00 15:00 23:00 Intake Total 720 ml 360 ml 440 ml Output Total 900 ml 400 ml Balance 720 ml -540 ml 40 ml Intake Oral 720 ml 360 ml 440 ml Output Urine Total 900 ml 400 ml # Voids 2 Result Diagram: 02/11/17 1540 02/11/17 1540 Imaging Last Impressions Chest X-Ray 02/11/17 0000 Signed Impressions: Service Date/Time: Saturday, February 11, 2017 15:51 - CONCLUSION: No acute disease. Ignacio Maciel MD CT Angiography 02/11/17 0000 Signed Impressions: Service Date/Time: Saturday, February 11, 2017 17:31 - CONCLUSION: 1. No pulmonary embolus. 2. Suspected postradiation change of the medial lower right lung. 3. Minimal patchy areas of suspected consolidation or atelectasis. 4. 3 mm nodule in the lateral right midlung which was present on a prior CT examination in 03/27/2015 and is unchanged. It likely represent a benign finding such as a granuloma. 5. Cirrhotic liver. 6. Suspected postoperative fluid collection the left chest. The patient is status post bilateral mastectomy. Ignacio Maciel MD Objective Remarks GENERAL: This is a well-nourished, well-developed patient, in no apparent distress. CARDIOVASCULAR: Regular rate and regular rhythm without murmurs, gallops, or rubs. RESPIRATORY: Clear to auscultation. Breath sounds equal bilaterally. No wheezes , rales, or rhonchi. GASTROINTESTINAL: Abdomen soft, non-tender, nondistended. Normal, active bowel sounds MUSCULOSKELETAL: Extremities without clubbing, cyanosis, or edema. NEURO: Alert & Oriented x4 to person, place, time, situation. Moves all ext x4 Procedures none Medications and IVs Current Medications Ceftriaxone Sodium/Sodium Chloride (Rocephin Inj/NS Inj) 100 ml @ 200 mls/hr ONCE ONCE IV Last administered on 02/11/17 17:34; Start 02/11/17 at 17:00; Stop 02/11/17 at 17:29; Status DC Acetaminophen (Tylenol) 650 mg Q4H PRN PO FEVER/PAIN 5 OR < Last administered on 02/11/17 20:18; Start 02/11/17 at 17:45 Ondansetron HCl (Zofran Inj) 4 mg Q8HR PRN IV PUSH NAUSEA; Start 02/11/17 at 17 :45 Iohexol (Omnipaque 350 Inj) 70 ml STK-MED ONCE IV Last administered on 17:50; Start 02/11/17 at 17:50; Stop 02/11/17 at 17:51; Status DC Alprazolam (Xanax) 0.25 mg Q8H PRN PO ANXIETY Last administered on 02/13/17 09 :38; Start 02/11/17 at 18:00 Nadolol (Corgard) 20 mg DAILY PO Last administered on 02/13/17 09:32; Start at 09:00 Aspirin (Aspirin Chew) 81 mg DAILY PO Last administered on 02/13/17 09:32; Start 02/12/17 at 09:00 Albuterol/ Ipratropium (Duoneb Neb) 1 ampule Q6HR WHILE AWAKE NEB NEB Last administered on 02/12/17 08:04; Start 02/11/17 at 20:00; Stop 02/12/17 at 09:00 ; Status DC Albuterol Sulfate (Albuterol Neb) 1.25 mg Q2HR NEB PRN NEB SHORTNESS OF BREATH ; Start 02/11/17 at 18:15 Guaifenesin (Robitussin Liq) 200 mg Q4H PRN PO COUGH Last administered on 09:38; Start 02/11/17 at 18:15 Enalaprilat 1.25 mg 1.25 mg Q8H PRN IV PUSH SBP> OR = 180, DBP> OR = 100 Last administered on 02/11/17 19:23; Start 02/11/17 at 18:15 Levofloxacin/ Dextrose (Levaquin 500 Mg Premix Inj) 100 ml @ 100 mls/hr Q24H IV Last administered on 02/12/17 18:16; Start 02/12/17 at 19:00 Acetaminophen/ Hydrocodone Bitart ([place] 5-325 Mg) 1 tab ONCE ONCE PO Last administered on 02/12/17 00:40; Start 02/12/17 at 00:30; Stop 02/12/17 at 00:31 ; Status DC Acetaminophen/ Hydrocodone Bitart ([place] 5-325 Mg) 1 tab Q6H PRN PO PAIN >5 Last administered on 02/13/17 11:16; Start 02/12/17 at 08:30 A/P Assessment and Plan A/P - cough/ sob - possible pneumonia vs bronchitis- no relief with outpatient antibiotic therapy with Zithromax- reports some improvement CTA chest with no pulmonary embolus. Suspected postradiation change of the medial lower right lung. Minimal patchy areas of suspected consolidation or atelectasis. 3 mm nodule in the lateral right midlung which was present on a prior CT examination in 03/27/2015 and is unchanged. It likely represent a benign finding such as a granuloma. Cirrhotic liver. Suspected postoperative fluid collection the left chest. The patient is status post bilateral mastectomy. continue with IV antibiotic- CTA chest with no PE- contine neb treatment- oxygen as needed to keep O2 sat >90% d/w ( her oncologist ) today; will start steroids and monitor the response. -elevated troponin with on and off chest pain- will continue aspirin and nadolol-consulted cardiology. for stress test today. -abnormal UA- UC with gram positive mixed giuliano. -history of head and neck cancer/ breast cancer- being followed up by -anemia/ thrombocytopenia- chronic and fairly stable- will monitor -PVD- continue aspirin- evaluated by vascular surgery last admission and recommended outpatient f/u Discharge Planning within the next 24-48 hrs pending the clinical course/ stress test. d/w . Romel Jones MD Feb 13, 2017 11:48
[2017-02-13] MEDS: methylPREDNISolone SOD SUCC 40 MG/1 ML VIAL IV PUSH SCH ×3 (12:33→22:11)
[2017-02-13] MEDS ORDERED: REGADENOSON INJ 0.4 MG/5 ML SYR ONE (13:43)
[2017-02-13] MEDS: RESP: ALBUTEROL 2.5 MG/IPRATROPIUM 0.5 MG NEB (SCH) NEB ×2 (14:00→20:17)
--- NOTE | 2017-02-13 15:34 | ECHRPT ---
Indication: Shortness of breath CONCLUSIONS The left ventricular systolic function is normal with an estimated ejection fraction in the range of 55-60%. There is mild tricuspid valve regurgitation. BP: 129 / 70 HR: 94 Rhythm: Sinus MEASUREMENTS (Male / Female) Normal Values Technical Quality:Good 2D ECHO LV Diastolic Diameter PLAX 3.8 cm 4.2 - 5.9 / 3.9 - 5.3 cm LV Systolic Diameter PLAX 3.1 cm IVS Diastolic Thickness 0.8 cm 0.6 - 1.0 / 0.6 - 0.9 cm LVPW Diastolic Thickness 0.8 cm 0.6 - 1.0 / 0.6 - 0.9 cm LV Relative Wall Thickness 0.4 RV Internal Dim ED PLAX 2.1 cm LVOT Diameter 1.6 cm LA Systolic Diameter LX 3.1 cm 3.0 - 4.0 / 2.7 - 3.8 cm M-MODE Aortic Root Diameter MM 3.2 cm AV Cusp Separation MM 1.9 cm DOPPLER AV Peak Velocity 159.0 cm/s AV Peak Gradient 10.1 mmHg LVOT Peak Velocity 133.0 cm/s LVOT Peak Gradient 7.1 mmHg AV Area Cont Eq pk 1.7 cm Mitral E Point Velocity 71.1 cm/s Mitral A Point Velocity 75.5 cm/s Mitral E to A Ratio 0.9 LV E' Lateral Velocity 7.0 cm/s Mitral E to LV E' Lateral Ratio 10.1 LV E' Septal Velocity 5.1 cm/s Mitral E to LV E' Septal Ratio 14.0 TR Peak Velocity 261.0 cm/s TR Peak Gradient 27.2 mmHg PV Peak Velocity 145.0 cm/s PV Peak Gradient 8.4 mmHg FINDINGS LEFT VENTRICLE The left ventricular systolic function is normal with an estimated ejection fraction in the range of 55-60%. Normal left ventricular size. Wall thickness is normal. RIGHT VENTRICLE Normal right ventricular size and systolic function. LEFT ATRIUM The left atrial size is mildly dilated. RIGHT ATRIUM The right atrial size is normal. ATRIAL SEPTUM The interatrial septum not well visualized. AORTA The aortic root and proximal ascending aorta are normal in size on limited imaging. MITRAL VALVE Structurally normal mitral valve. No mitral valve stenosis or regurgitation. Mild mitral annular calcification. AORTIC VALVE Trileaflet aortic valve. No aortic valve stenosis or regurgitation. TRICUSPID VALVE There is mild tricuspid valve regurgitation. The estimated pulmonary arterial pressure is 37 mmHg. PULMONARY VALVE The pulmonary valve is not well visualized. VESSELS The inferior vena cava is normal in size. PERICARDIUM No pericardial effusion. Jon Bajwa DO (Electronically Signed) Final Date:13 February 2017 15:33
--- NOTE | 2017-02-13 16:38 | RADRPT ---
EXAM DATE/TIME: 02/13/2017 13:21 [facility] COMPARISON: No previous studies available for comparison. INDICATIONS : Left sided chest pain. Angina. DOSE: 26.0 mCi Tc99m Myoview at stress. 8.1 mCi Tc99m Myoview at rest. 0.4 mg Lexiscan STRESS SYMPTOMS: None noted. EJECTION FRACTION: > 70% MEDICAL HISTORY : Carcinoma, breast. Hypertension. Head and neck cancer. SURGICAL HISTORY : Hysterectomy. Mastectomy, bilateral. ENCOUNTER: Initial ACUITY: 1 day PAIN SCALE: 2/10 LOCATION: Bilateral chest TECHNIQUE: The patient underwent pharmacologic stress with infusion of prescribed dose. Continuous ECG tracing was monitored during stress. Gated SPECT imaging was performed after stress and conventional SPECT i maging was performed at rest. The examination was performed on a SPECT/CT scanner, both attenuation and non-corrected datasets were reviewed. FINDINGS: DISTRIBUTION: The maximum perfused segment at stress is in the lateral wall. PERFUSION STUDY: The pattern of perfusion at stress is within normal limits. GATED STUDY: There is intact wall motion and thickening without hypokinetic or dyskinetic segments. CONCLUSION: Normal examination. RISK CATEGORY: Low (<1% Annual Mortality Rate) Ignacio Hampton MD on February 13, 2017 at 16:33 Board Certified Radiologist. This report was verified electronically.
[2017-02-13] MEDS: LEVOFLOXACIN 500 MG PREMIX INJ 100 ML IV SCH (18:21)
[2017-02-14] VITALS (8 sets, daily range): BP systolic 111–121; BP diastolic 62–63; PULSE 67–81; RESP 16–18; TEMP 97.6–97.7; O2SAT 92–96
[2017-02-14] MEDS: guaiFENesin SOLUTION 200 MG/10 ML CUP PO PRN (05:57)
[2017-02-14] MEDS: ACETAMINOPHEN/HYDROcodone 325 MG/5 MG TAB PO PRN (05:57)
[2017-02-14] MEDS: methylPREDNISolone SOD SUCC 40 MG/1 ML VIAL IV PUSH SCH (05:58)
[2017-02-14] MEDS: RESP: ALBUTEROL 2.5 MG/IPRATROPIUM 0.5 MG NEB (SCH) NEB (07:55)
--- NOTE | 2017-02-14 08:12 | HHI.PR ---
Subjective Remarks feels and looks better and more comfortable. sob and cough has much improved. no fever. no chest pain. no other complaints. Objective Vitals Vital Signs Date Time Temp Pulse Resp B/P Pulse Ox O2 Delivery O2 Flow Rate FiO2 02/14/17 07:56 92 02/14/17 07:52 81 02/14/17 07:52 97.6 81 18 121/62 94 02/14/17 07:47 18 02/14/17 03:00 97.7 71 16 111/63 96 02/13/17 23:00 98.2 73 16 116/65 95 02/13/17 20:17 92 21 02/13/17 19:00 97.9 76 16 122/73 96 02/13/17 18:03 70 02/13/17 17:00 73 02/13/17 16:00 70 02/13/17 15:30 97.9 72 17 109/67 96 02/13/17 15:30 70 02/13/17 13:00 66 02/13/17 12:00 65 02/13/17 11:00 89 02/13/17 11:00 98.1 68 19 94/54 100 02/13/17 10:51 92 02/13/17 10:00 74 02/13/17 09:00 74 I/O 02/13/17 02/13/17 02/13/17 02/14/17 02/14/17 02/14/17 07:00 15:00 23:00 07:00 15:00 23:00 Intake Total 440 ml 360 ml 240 ml Output Total 400 ml 1200 ml 1550 ml Balance 40 ml -840 ml -1310 ml Intake Oral 440 ml 360 ml 240 ml Output Urine Total 400 ml 1200 ml 1550 ml Result Diagram: 02/11/17 1540 02/11/17 1540 Imaging Last Impressions Myocardial Perfusion Scan Nuc Med 02/13/17 0000 Signed Impressions: Service Date/Time: Monday, February 13, 2017 13:21 - CONCLUSION: Normal examination. RISK CATEGORY: Low (<1%% Annual Mortality Rate) Ignacio Hampton MD Chest X-Ray 02/11/17 0000 Signed Impressions: Service Date/Time: Saturday, February 11, 2017 15:51 - CONCLUSION: No acute disease. Ignacio Maciel MD CT Angiography 02/11/17 0000 Signed Impressions: Service Date/Time: Saturday, February 11, 2017 17:31 - CONCLUSION: 1. No pulmonary embolus. 2. Suspected postradiation change of the medial lower right lung. 3. Minimal patchy areas of suspected consolidation or atelectasis. 4. 3 mm nodule in the lateral right midlung which was present on a prior CT examination in 03/27/2015 and is unchanged. It likely represent a benign finding such as a granuloma. 5. Cirrhotic liver. 6. Suspected postoperative fluid collection the left chest. The patient is status post bilateral mastectomy. Ignacio Maciel MD Objective Remarks GENERAL: This is a well-nourished, well-developed patient, in no apparent distress. CARDIOVASCULAR: Regular rate and regular rhythm without murmurs, gallops, or rubs. RESPIRATORY: Clear to auscultation. Breath sounds equal bilaterally. No wheezes , rales, or rhonchi. GASTROINTESTINAL: Abdomen soft, non-tender, nondistended. Normal, active bowel sounds MUSCULOSKELETAL: Extremities without clubbing, cyanosis, or edema. NEURO: Alert & Oriented x4 to person, place, time, situation. Moves all ext x4 Procedures none Medications and IVs Current Medications Ceftriaxone Sodium/Sodium Chloride (Rocephin Inj/NS Inj) 100 ml @ 200 mls/hr ONCE ONCE IV Last administered on 02/11/17 17:34; Start 02/11/17 at 17:00; Stop 02/11/17 at 17:29; Status DC Acetaminophen (Tylenol) 650 mg Q4H PRN PO FEVER/PAIN 5 OR < Last administered on 02/11/17 20:18; Start 02/11/17 at 17:45 Ondansetron HCl (Zofran Inj) 4 mg Q8HR PRN IV PUSH NAUSEA; Start 02/11/17 at 17 :45 Iohexol (Omnipaque 350 Inj) 70 ml STK-MED ONCE IV Last administered on 17:50; Start 02/11/17 at 17:50; Stop 02/11/17 at 17:51; Status DC Alprazolam (Xanax) 0.25 mg Q8H PRN PO ANXIETY Last administered on 02/13/17 09 :38; Start 02/11/17 at 18:00 Nadolol (Corgard) 20 mg DAILY PO Last administered on 02/13/17 09:32; Start at 09:00 Aspirin (Aspirin Chew) 81 mg DAILY PO Last administered on 02/13/17 09:32; Start 02/12/17 at 09:00 Albuterol/ Ipratropium (Duoneb Neb) 1 ampule Q6HR WHILE AWAKE NEB NEB Last administered on 02/12/17 08:04; Start 02/11/17 at 20:00; Stop 02/12/17 at 09:00 ; Status DC Albuterol Sulfate (Albuterol Neb) 1.25 mg Q2HR NEB PRN NEB SHORTNESS OF BREATH ; Start 02/11/17 at 18:15 Guaifenesin (Robitussin Liq) 200 mg Q4H PRN PO COUGH Last administered on 05:57; Start 02/11/17 at 18:15 Enalaprilat 1.25 mg 1.25 mg Q8H PRN IV PUSH SBP> OR = 180, DBP> OR = 100 Last administered on 02/11/17 19:23; Start 02/11/17 at 18:15 Levofloxacin/ Dextrose (Levaquin 500 Mg Premix Inj) 100 ml @ 100 mls/hr Q24H IV Last administered on 02/13/17 18:21; Start 02/12/17 at 19:00 Acetaminophen/ Hydrocodone Bitart ([place] 5-325 Mg) 1 tab ONCE ONCE PO Last administered on 02/12/17 00:40; Start 02/12/17 at 00:30; Stop 02/12/17 at 00:31 ; Status DC Acetaminophen/ Hydrocodone Bitart ([place] 5-325 Mg) 1 tab Q6H PRN PO PAIN >5 Last administered on 02/14/17 05:57; Start 02/12/17 at 08:30 Methylprednisolone Sodium Succinate (SoluMEDROL INJ) 40 mg Q8HR IV PUSH Last administered on 02/14/17 05:58; Start 02/13/17 at 12:00 Albuterol/ Ipratropium (Duoneb Neb) 1 ampule Q6HR WHILE AWAKE NEB NEB Last administered on 02/14/17 07:55; Start 02/13/17 at 14:00; Stop 02/14/17 at 09:00 Regadenoson (Lexiscan Inj) 0.4 mg STK-MED ONCE .ROUTE Last administered on 02/13t 13:43; Start 02/13/17 at 13:43; Stop 02/13/17 at 13:44; Status DC A/P Assessment and Plan A/P - cough/ sob - possible pneumonia vs copd exacerbation- no relief with outpatient antibiotic therapy with Zithromax- reports some improvement CTA chest with no pulmonary embolus. Suspected postradiation change of the medial lower right lung. Minimal patchy areas of suspected consolidation or atelectasis. 3 mm nodule in the lateral right midlung which was present on a prior CT examination in 03/27/2015 and is unchanged. It likely represent a benign finding such as a granuloma. Cirrhotic liver. Suspected postoperative fluid collection the left chest. The patient is status post bilateral mastectomy. switch to po antibiotic and prednisone- albuterol as needed- PFT as outpatient and this was d/w the patient. previously d/w ( her oncologist ) - f/u as outpatient. -elevated troponin with on and off chest pain- will continue aspirin and nadolol- stress test normal- cardiology evaluation appreciated. -history of head and neck cancer/ breast cancer- being followed up by -anemia/ thrombocytopenia- chronic and fairly stable- will monitor -PVD- continue aspirin- evaluated by vascular surgery last admission and recommended outpatient f/u Discharge Planning dc home today with f/u by pcp and oncology. see med list. d/w the patient. Romel Jones MD Feb 14, 2017 08:12
[2017-02-14] MEDS ORDERED: HYDR-3516 PO (08:15)
[2017-02-14] MEDS ORDERED: PRED5TAB PO (08:15)
[2017-02-14] MEDS ORDERED: VENTAER INH (08:15)
--- NOTE | 2017-02-14 08:15 | HHI.DCPOC ---
Discharge Care Plan Your Health Problems Are: Cough Goals to Promote Your Health * To prevent worsening of your condition and complications * To maintain your health at the optimal level Directions to Meet Your Goals Take your medications as prescribed Follow your dietary instruction Follow activity as directed Keep your appointments as scheduled Take your immunizations and boosters as scheduled If your symptoms worsen call your PCP, if no PCP go to Urgent Care Center or Emergency Room Smoking is Dangerous to Your Health. Avoid second hand smoke Call the 24-hour hour crisis hotline for domestic abuse at Romel Jones MD Feb 14, 2017 08:15
--- NOTE | 2017-02-14 08:16 | HHI.DS ---
Discharge Summary Admission Date Feb 11, 2017 at 17:45 Discharge Date: Feb 14, 2017 Admitting Diagnosis Elevated troponin, UTI (1) possible pneumonia Diagnosis: Principal Procedures none Brief History - From Admission patient is a 71 y/o female with history of head and neck cancer, breast cancer, PVD and hypertension who presented to ER with sob. she says that she's had sob and cough for the past few days. she had her chemo on Monday and was prescribed Z-pack and Fluticasone by her oncologist. she says that despite taking the antibiotic her cough and sob didn't improve. she denies any fever but had some chills at home. she says that she had some mild chest discomfort which has already resolved. she also reports occasional urinary dribbling with no dysuria. she says that she decided to come to ER after the antibiotic didn't help her with the cough. CBC/BMP: 02/11/17 1540 02/11/17 1540 Significant Findings Laboratory Tests Test 02/11/17 02/11/17 02/11/17 02/12/17 15:40 15:45 22:40 04:12 Red Blood Count 3.59 MIL/MM3 (4.00-5.30) Hemoglobin 11.3 GM/DL (11.6-15.3) Hematocrit 33.8 % (35.0-46.0) Red Cell Distribution Width 18.8 % (11.6-17.2) Platelet Count 88 TH/MM3 (150-450) Neutrophils (%) (Auto) 91.3 % (16.0-70.0) Lymphocytes (%) (Auto) 6.5 % (9.0-44.0) Lymphocytes # (Auto) 0.3 TH/MM3 (1.0-4.8) Neutrophils % (Manual) 81 % (16-70) Band Neutrophils % 7 % (0-6) Lymphocytes % 7 % (9-44) Metamyelocytes 4 % (0-1) Toxic Granulation 1+ (NORMAL) Platelet Estimate LOW (NORMAL) Activated Partial 30.6 SEC Thromboplast Time (24.3-30.1) Random Glucose 123 MG/DL (74-106) Troponin I 0.09 NG/ML 0.10 NG/ML 0.12 NG/ML (0.02-0.05) (0.02-0.05) (0.02-0.05) Albumin 3.0 GM/DL (3.4-5.0) Urine Leukocyte Esterase LARGE (NEG) Urine WBC 16 /hpf (0-5) Imaging Last Impressions Myocardial Perfusion Scan Nuc Med 02/13/17 0000 Signed Impressions: Service Date/Time: Monday, February 13, 2017 13:21 - CONCLUSION: Normal examination. RISK CATEGORY: Low (<1%% Annual Mortality Rate) Ignacio Hampton MD Chest X-Ray 02/11/17 0000 Signed Impressions: Service Date/Time: Saturday, February 11, 2017 15:51 - CONCLUSION: No acute disease. Ignacio Maciel MD CT Angiography 02/11/17 0000 Signed Impressions: Service Date/Time: Saturday, February 11, 2017 17:31 - CONCLUSION: 1. No pulmonary embolus. 2. Suspected postradiation change of the medial lower right lung. 3. Minimal patchy areas of suspected consolidation or atelectasis. 4. 3 mm nodule in the lateral right midlung which was present on a prior CT examination in 03/27/2015 and is unchanged. It likely represent a benign finding such as a granuloma. 5. Cirrhotic liver. 6. Suspected postoperative fluid collection the left chest. The patient is status post bilateral mastectomy. Ignacio Maciel MD PE at Discharge GENERAL: This is a well-nourished, well-developed patient, in no apparent distress. CARDIOVASCULAR: Regular rate and regular rhythm without murmurs, gallops, or rubs. RESPIRATORY: Clear to auscultation. Breath sounds equal bilaterally. No wheezes , rales, or rhonchi. GASTROINTESTINAL: Abdomen soft, non-tender, nondistended. Normal, active bowel sounds MUSCULOSKELETAL: Extremities without clubbing, cyanosis, or edema. NEURO: Alert & Oriented x4 to person, place, time, situation. Moves all ext x4 Hospital Course - cough/ sob - possible pneumonia vs copd exacerbation- no relief with outpatient antibiotic therapy with Zithromax- reports some improvement CTA chest with no pulmonary embolus. Suspected postradiation change of the medial lower right lung. Minimal patchy areas of suspected consolidation or atelectasis. 3 mm nodule in the lateral right midlung which was present on a prior CT examination in 03/27/2015 and is unchanged. It likely represent a benign finding such as a granuloma. Cirrhotic liver. Suspected postoperative fluid collection the left chest. The patient is status post bilateral mastectomy. switch to po antibiotic and prednisone- albuterol as needed- PFT as outpatient and this was d/w the patient. previously d/w ( her oncologist ) - f/u as outpatient. -elevated troponin with on and off chest pain- will continue aspirin and nadolol- stress test normal- cardiology evaluation appreciated. -history of head and neck cancer/ breast cancer- being followed up by -anemia/ thrombocytopenia- chronic and fairly stable- will monitor -PVD- continue aspirin- evaluated by vascular surgery last admission and recommended outpatient f/u Pt Condition on Discharge: Fair Discharge Disposition: Discharge Home Discharge Time: <= 30 minutes Discharge Instructions DIET: Follow Instructions for: Heart Healthy Diet Activities you can perform: Regular-No Restrictions Follow up Referrals: Oncology PCP Follow-up New Medications: Albuterol 18 GM Inh (Ventolin Hfa 18 GM Inh) 90 Mcg/Act Aer 2 PUFF INH Q6HR PRN SHORTNESS OF BREATH #1 Ref 0 INHALER Levofloxacin (Levaquin) 500 Mg Tablet 500 MG PO DAILY infection Days 5 Ref 0 TAB Prednisone (Prednisone) 5 Mg Tab 5 MG PO DIRECTED 40 mg po daily for two days then 30 mg po daily for two days then 20 mg po daily for two days then 10 mg po daily for two days then 5 mg po daily for two days then stop. copd Days 10 Ref 0 TAB Hydrocodone-Acetaminophen (Hydrocodone-Acetaminophen) 5-325 mg Tab 1 TAB PO Q6H PRN pain #12 Ref 0 TAB Continued Medications: Alprazolam (Xanax) 0.25 Mg Tab 0.25 MG PO Q8H PRN ANXIETY Ref 0 TAB Nadolol (Nadolol) 20 Mg Tab 20 MG PO DAILY #30 Ref 0 TAB ([Aspirin Chew]) 81 MG CHEW 81 MG PO DAILY pvd Days 30 Ref 0 TAB.CHEW Romel Jones MD Feb 14, 2017 08:16
[2017-02-14] MEDS ORDERED: LEVA500T20 PO (08:18)
[2017-02-14] MEDS: NADOLOL 20 MG TAB PO SCH (09:26)
[2017-02-14] MEDS: ASPIRIN 81 MG CHEW TAB PO SCH (09:26)
[2017-02-14] MEDS: ALPRAZolam 0.25 MG TAB PO PRN (09:27)
== END 2017-02-14 10:50 | disposition home or self-care (01) | DRG 195 ==
LOC: NEPC 14:44 → NEDA 17:45 → HCIS 19:57
PROVIDERS: ADMIT Internal Medicine; ATTEND Internal Medicine
DX: J18.9 Pneumonia, unspecified organism (principal); D69.6 Thrombocytopenia, unspecified; K70.30 Alcoholic cirrhosis of liver without ascites; D64.9 Anemia, unspecified; R82.99 Other abnormal findings in urine; I73.9 Peripheral vascular disease, unspecified; R07.89 Other chest pain; F17.210 Nicotine dependence, cigarettes, uncomplicated; I10 Essential (primary) hypertension; Z79.899 Other long term (current) drug therapy; Z92.3 Personal history of irradiation; Z85.118 Personal history of other malignant neoplasm of bronchus and lung; Z85.3 Personal history of malignant neoplasm of breast; Z85.89 Personal history of malignant neoplasm of other organs and systems; Z90.13 Acquired absence of bilateral breasts and nipples
CPT/HCPCS: 71010; 71275; 78452; 80053; 81001; 82550; 84484; 85007; 85027; 85610; 85730; 87086; 93005; 93017; 93306; 94640; 94664; 96374; A9502; J0696; J1956; J2785; J2920; Q9967

== ENCOUNTER 2017-02-23 15:44 | Inpatient (IN) | payer OTHER, MEDICARE ==
[~2017-02-23] VITALS: Ht 162.6 cm; Wt 67.5 kg
[~2017-02-23 15:44] MED LIST changes: -ANAS1TAB PO; -FOLI1TAB4 PO; +HYDR-3516 PO; +LEVA500T20 PO; -NORC5TAB PO; -OMEP20TA PO; +PRED5TAB PO; -PROC10TA PO; +VENTAER INH; -VITA100064 PO; -VITA500T PO
[2017-02-23 16:24] VITALS: BP 124/77; PULSE 82; RESP 20; TEMP 98.7; O2SAT 99
--- NOTE | 2017-02-23 16:29 | PD ---
HPI . Vertigo and low white blood cell count Chief Complaint: Dizziness Time Seen by Provider: 16:29 Travel History International Travel<30 days: No Contact w/Intl Traveler<30days: No Traveled to known affect area: No History of Present Illness HPI 71-year-old female with quite an extensive medical history with recent bilateral breast cancer now on chemotherapy, uterine cancer status post hysterectomy, throat and tongue cancer in the past, liver cirrhosis and recent diagnosis of urinary tract infection here with complaints of occasional vertigo and also having a low white count. Patient tells me that she was recently admitted due to a urinary tract infection. She tells me that she thinks the infection has cleared, but she started experiencing some vertigo prior to chemotherapy and was also told that she had a low white blood cell count was told to come to the emergency department. At this current time she is comfortable and tells me that she just feels fatigued all over. She denies any fever, but admits to intermittent chills. She also admits to a slight cough and occasional production of phlegm, but denies any shortness of breath, wheezing or chest pain. She has no other complaints at this time. PFSH Past Medical History Hx Anticoagulant Therapy: Yes (81 ASPIRIN) Arthritis: No Asthma: No Anxiety: Yes Depression: Yes Heart Rhythm Problems: No Cancer: Yes (UTERINE CANCER, THROAT CANCER, BREAST CA, tongue) Cardiovascular Problems: Yes (MILD UT) High Cholesterol: Yes Chemotherapy: Yes Chest Pain: No Congestive Heart Failure: No Cirrhosis: Yes COPD: Yes Cerebrovascular Accident: Yes (TIA) Diabetes: No Diminished Hearing: No Endocrine: No Gastrointestinal Disorders: Yes (G-TUBE, REFLUX) GERD: Yes Genitourinary: No Hepatitis: No Hiatal Hernia: No Hypertension: Yes Immune Disorder: No Implanted Vascular Access Dvce: Yes (port l chest) Musculoskeletal: Yes (SCIATICA) Neurologic: Yes Psychiatric: Yes (ANXIETY, DEPRESSION) Reproductive: Yes (UTERINE CANCER, BREAST CA) Respiratory: Yes Immunizations Current: No Migraines: No Myocardial Infarction: Yes Radiation Therapy: Yes (past) Seizures: Yes Sleep Apnea: No Thyroid Disease: No Ulcer: No Past Surgical History Abdominal Surgery: Yes (polyps removed, FISSURE FUSION, G-TUBE PLACEMENT/ removal) AICD: No Appendectomy: Yes Arteriovenous Shunt: No Cardiac Surgery: No Ear Surgery: No Endocrine Surgery: No Eye Surgery: No Genitourinary Surgery: No Gynecologic Surgery: Yes (HYSTERECTOMY, IUD REMOVED, b/l mastectomy) Hysterectomy: Yes Insulin Pump: No Joint Replacement: No Neurologic Surgery: Yes (RIGHT ANGIOGRAM) Oral Surgery: Yes (TONSILLECTOMY) Pacemaker: No Thoracic Surgery: No Other Surgery: Yes Social History Alcohol Use: No Tobacco Use: Yes (08/24 ppd) Substance Use: No Allergies-Medications (Allergen,Severity, Reaction): Coded Allergies: No Known Allergies (Unverified , 02/23/17) Reported Meds & Prescriptions Reported Meds & Active Scripts Active Levaquin (Levofloxacin) 500 Mg Tablet 500 Mg PO DAILY 5 Days Ventolin Hfa 18 GM Inh (Albuterol Sulfate) 90 Mcg/Act Aer 2 Puff INH Q6HR PRN Hydrocodone-Acetaminophen 5-325 mg Tab 1 Tab PO Q6H PRN [Aspirin Chew] 81 MG Chew 81 Mg PO DAILY 30 Days Reported [chemotherapy] 1 Injection IJ DIRECTED Xanax (Alprazolam) 0.25 Mg Tab 0.25 Mg PO Q8H PRN Nadolol 20 Mg Tab 20 Mg PO DAILY Review of Systems General / Constitutional: No: Fever Eyes: No: Visual changes HENT: No: Headaches Cardiovascular: No: Chest Pain or Discomfort Respiratory: No: Shortness of Breath Gastrointestinal: No: Abdominal Pain Genitourinary: No: Dysuria Musculoskeletal: No: Pain Skin: No Rash Neurologic: Positive: Other (vertigo), No: Weakness Psychiatric: No: Depression Endocrine: No: Polydipsia Hematologic/Lymphatic: No: Easy Bruising Physical Exam Narrative GENERAL: AAO x 3, no acute distress, Well-nourished, well-developed patient. SKIN: Warm and dry. No visible rashes or bruising. HEAD: Normocephalic and atraumatic. EYES: No scleral icterus. No injection or drainage. EOM intact, PERRLA ENT: No nasal drainage noted. Mucous membranes pink. Airway patent. NECK: Supple, trachea midline. No JVD. No lymphadenopathy CARDIOVASCULAR: Regular rate and rhythm without murmurs, gallops, or rubs. RESPIRATORY: Breath sounds equally diminished bilaterally. No accessory muscle use. No rhonchi or rales. GASTROINTESTINAL: Abdomen soft, non-tender, nondistended. Normoactive bowel sounds EXTREMITIES: No cyanosis or edema. Pedal pulses intact bilaterally. BACK: Nontender without obvious deformity. No CVA tenderness. 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 Data Data Last Documented VS Vital Signs Date Time Temp Pulse Resp B/P Pulse Ox O2 Delivery O2 Flow Rate FiO2 02/23/17 18:49 76 20 148/77 98 Room Air 02/23/17 16:24 98.7 Orders Complete Blood Count With Diff (02/23/17 16:35) Comprehensive Metabolic Panel (02/23/17 16:35) Prothrombin Time / Inr (Pt) (02/23/17 16:35) Act Partial Throm Time (Ptt) (02/23/17 16:35) Urinalysis - C+S If Indicated (02/23/17 16:35) Iv Access Insert/Monitor (02/23/17 16:35) Oximetry (02/23/17 16:35) Chest, Single Ap (02/23/17 16:35) Vancomycin Inj (Vancomycin Inj) (02/23/17 18:15) Cefepime Inj (Maxipime Inj) (02/23/17 18:15) Admit Order (Ed Use Only) (02/23/17 18:57) Labs Laboratory Tests Test 02/23/17 17:00 White Blood Count 2.3 TH/MM3 Red Blood Count 3.37 MIL/MM3 Hemoglobin 10.6 GM/DL Hematocrit 32.5 % Mean Corpuscular Volume 96.5 FL Mean Corpuscular Hemoglobin 31.6 PG Mean Corpuscular Hemoglobin 32.7 % Concent Red Cell Distribution Width 19.5 % Platelet Count 130 TH/MM3 Mean Platelet Volume 9.1 FL Neutrophils (%) (Auto) 52.6 % Lymphocytes (%) (Auto) 17.4 % Monocytes (%) (Auto) 29.0 % Eosinophils (%) (Auto) 0.4 % Basophils (%) (Auto) 0.6 % Neutrophils # (Auto) 1.2 TH/MM3 Lymphocytes # (Auto) 0.4 TH/MM3 Monocytes # (Auto) 0.7 TH/MM3 Eosinophils # (Auto) 0.0 TH/MM3 Basophils # (Auto) 0.0 TH/MM3 CBC Comment DIFF FINAL Differential Comment Prothrombin Time 11.3 SEC Prothromb Time International 1.0 RATIO Ratio Activated Partial 24.4 SEC Thromboplast Time Sodium Level 142 MEQ/L Potassium Level 4.0 MEQ/L Chloride Level 108 MEQ/L Carbon Dioxide Level 27.8 MEQ/L Anion Gap 6 MEQ/L Blood Urea Nitrogen 9 MG/DL Creatinine 0.54 MG/DL Estimat Glomerular Filtration 112 ML/MIN Rate Random Glucose 92 MG/DL Calcium Level 8.0 MG/DL Total Bilirubin 0.5 MG/DL Aspartate Amino Transf 33 U/L (AST/SGOT) Alanine Aminotransferase 20 U/L (ALT/SGPT) Alkaline Phosphatase 84 U/L Total Protein 5.4 GM/DL Albumin 2.6 GM/DL [facility] Medical Decision Making Medical Screen Exam Complete: Yes Emergency Medical Condition: Yes Medical Record Reviewed: Yes Differential Diagnosis UTI, neutropenia due to chemo, vertigo due to chemo, Narrative Course 71-year-old female here after having a bout of vertigo. Patient was also told by her providers at the radiation center that her white count was low. Additionally she reports some coughing and phlegm production. Labs and imaging have been ordered. Chest x-ray demonstrates a new right middle lobe infiltrate. Patient was given vancomycin and cefepime here in the emergency department. She also has neutropenia. Urinalysis is still pending (patient has not left a sample), but will not change course of treatment. 1856:discussed with Dr. Bustamante, patient admitted to Laboratory Tests Test 02/23/17 17:00 White Blood Count 2.3 TH/MM3 Red Blood Count 3.37 MIL/MM3 Hemoglobin 10.6 GM/DL Hematocrit 32.5 % Mean Corpuscular Volume 96.5 FL Mean Corpuscular Hemoglobin 31.6 PG Mean Corpuscular Hemoglobin 32.7 % Concent Red Cell Distribution Width 19.5 % Platelet Count 130 TH/MM3 Mean Platelet Volume 9.1 FL Neutrophils (%) (Auto) 52.6 % Lymphocytes (%) (Auto) 17.4 % Monocytes (%) (Auto) 29.0 % Eosinophils (%) (Auto) 0.4 % Basophils (%) (Auto) 0.6 % Neutrophils # (Auto) 1.2 TH/MM3 Lymphocytes # (Auto) 0.4 TH/MM3 Monocytes # (Auto) 0.7 TH/MM3 Eosinophils # (Auto) 0.0 TH/MM3 Basophils # (Auto) 0.0 TH/MM3 CBC Comment DIFF FINAL Differential Comment Prothrombin Time 11.3 SEC Prothromb Time International 1.0 RATIO Ratio Activated Partial 24.4 SEC Thromboplast Time Sodium Level 142 MEQ/L Potassium Level 4.0 MEQ/L Chloride Level 108 MEQ/L Carbon Dioxide Level 27.8 MEQ/L Anion Gap 6 MEQ/L Blood Urea Nitrogen 9 MG/DL Creatinine 0.54 MG/DL Estimat Glomerular Filtration 112 ML/MIN Rate Random Glucose 92 MG/DL Calcium Level 8.0 MG/DL Total Bilirubin 0.5 MG/DL Aspartate Amino Transf 33 U/L (AST/SGOT) Alanine Aminotransferase 20 U/L (ALT/SGPT) Alkaline Phosphatase 84 U/L Total Protein 5.4 GM/DL Albumin 2.6 GM/DL I discussed all of the results with the patient and she is in agreement with admission. Admitting Information Admitting Physician Requests: Admit Condition: Stable Brenda Diop Feb 23, 2017 16:29
--- NOTE | 2017-02-23 17:08 | RADRPT ---
EXAM DATE/TIME: 02/23/2017 16:35 [facility] COMPARISON: CHEST SINGLE AP, February 11, 2017, 15:51. INDICATIONS : Patient went to chemotherapy this morning and was very short of breath and became dizzy. MEDICAL HISTORY : Stroke. Carcinoma, breast. Seizures. SURGICAL HISTORY : Hysterectomy. Mastectomy, bilateral. ENCOUNTER: Initial ACUITY: 1 day PAIN SCORE: 0/10 LOCATION: Bilateral chest FINDINGS: A single view of the chest demonstrates a new mild infiltrate in the right middle lobe. Otherwise, th e lungs are clear and well aerated. The cardiomediastinal contours are unremarkable. Osseous structu res are intact. Left-sided [id number] in place. CONCLUSION: New Mild right middle lobe infiltrate. Scott Fregoso MD on February 23, 2017 at 17:04 Board Certified Radiologist. This report was verified electronically.
[2017-02-23 17:37] LABS: AUTOMATED NEUTROPHIL # 1.2 TH/MM3 (1.8-7.7); BASOPHIL % 0.6 % (0.0-2.0); EOSINOPHIL % 0.4 % (0.0-4.0); HEMATOCRIT 32.5 % (35.0-46.0); HEMO FLAGS DIFF FINAL; LYMPH % 17.4 % (9.0-44.0); LYMPHOCYTE # 0.4 TH/MM3 (1.0-4.8); MEAN CELL VOLUME 96.5 FL (80.0-100.0); MEAN CORPUSCULAR HEMOGLOBIN 31.6 PG (27.0-34.0); MEAN CORPUSCULAR HGB CONC 32.7 % (32.0-36.0); NEUT % 52.6 % (16.0-70.0); PLATELET COUNT 130 TH/MM3 (150-450); RED BLOOD COUNT 3.37 MIL/MM3 (4.00-5.30); RED CELL DISTRIBUTION WIDTH 19.5 % (11.6-17.2); WHITE BLOOD COUNT 2.3 TH/MM3 (4.0-11.0)
[2017-02-23] MEDS ORDERED: chemotherapy IJ (17:42)
[2017-02-23 17:47] LABS: PROTHROMBIN TIME - PATIENT 11.3 SEC (9.8-11.6)
[2017-02-23 17:49] LABS: APTT (PATIENT) 24.4 SEC (24.3-30.1)
[2017-02-23 18:09] LABS: ANION GAP 6 MEQ/L (5-15); AST (GOT) 33 U/L (15-37); BICARBONATE 27.8 MEQ/L (21.0-32.0); BLOOD UREA NITROGEN 9 MG/DL (7-18); CHLORIDE 108 MEQ/L (98-107); GLOMERULAR FILTRATION RATE 112 ML/MIN (>89); SODIUM (NA) 142 MEQ/L (136-145)
[2017-02-23 18:10] LABS: ALKALINE PHOSPHATASE 84 U/L (45-117); ALT (GPT) 20 U/L (10-53); TOTAL BILIRUBIN ADULT 0.5 MG/DL (0.2-1.0)
[2017-02-23] MEDS ORDERED: CEFEPIME INJ 2,000 MG in SODIUM CHLORIDE 0.9% INJ 100 ML IV ONE (18:15)
[2017-02-23] MEDS ORDERED: VANCOMYCIN INJ 1,250 MG in SODIUM CHLOR 0.9% 250 ML INJ 250 ML IV ONE (18:15)
[2017-02-23 18:49] VITALS: BP 148/77; PULSE 76; RESP 20; O2SAT 98
[2017-02-23] MEDS ORDERED: NALOXONE HCL 0.4 MG/ML AMP IV PRN (19:30)
[2017-02-23] MEDS ORDERED: ONDANSETRON HCL 4 MG/2 ML VIAL IVP PRN (20:00)
--- NOTE | 2017-02-23 20:31 | HHI.HP ---
[facility] Joby Bennett Do, MD Admission Diagnosis Pneumonia/Neutropenia Diagnoses: Chief Complaint: dizziness and weak Travel History International Travel<30 Days: No Contact w/Intl Traveler <30 Da: No Traveled to Known Affected Are: No History of Present Illness Written by ROSALINDA Weeks acting as scribe for [Robby] on 02/23/17 at 20: 29. 71 y/o with a history of HTN, COPD, seizure disorder since age 4 (not on medications since age 50) Uterine CA, throat ca, tongue ca,breast ca and currently undergoing chemo and cirrhosis presented to the ED with weakness and dizziness. She has been feeling weak for the last 5 or 6 days, with associated dizziness, ringing in her ears, and sinus pain. She feels when she feels dizziness she feels she is going to pass out. She was seen in Dr. Morales office and was given antibiotics and fluids. She just picked up a new prescription today but is unsure of the name. She was recently treated for pneumonia around for 7 days and then recently out patient she was treated for a sinus infection for 3 days. She is noted to have a non productive cough, no fevers but extreme chills. She does states she has had black stools for the last weak. No chest pain, sob, nausea or vomiting. No dysuria, or diarrhea. Review of Systems Constitutional: COMPLAINS OF: Fatigue, Chills, Dizziness, DENIES: Fever Respiratory: COMPLAINS OF: Cough, DENIES: Sputum production, Shortness of breath Cardiovascular: DENIES: Chest pain, Lower Extremity Edema Gastrointestinal: DENIES: Constipation, Diarrhea, Nausea, Vomiting Genitourinary: DENIES: Hematuria, Dysuria Musculoskeletal: DENIES: Back pain, Neck pain Integumentary: DENIES: Rash Hematologic/lymphatic: DENIES: Lymphadenopathy Immunologic/allergic: DENIES: Urticaria Neurologic: DENIES: Headache Past Family Social History Past Medical History Uterine CA at age 52 with radiation Tongue/throat CA with radiation and chemo Cirrhosis PVD Bilateral Breast CA HTN COPD Seizures since age 4 (not on medications since age 50) Past Surgical History Right leg bypass for artery blockage Mastectomy 05/2016 Hysterectomy Reported Medications Reported Meds & Active Scripts Active Levaquin (Levofloxacin) 500 Mg Tablet 500 Mg PO DAILY 5 Days Ventolin Hfa 18 GM Inh (Albuterol Sulfate) 90 Mcg/Act Aer 2 Puff INH Q6HR PRN Hydrocodone-Acetaminophen 5-325 mg Tab 1 Tab PO Q6H PRN [Aspirin Chew] 81 MG Chew 81 Mg PO DAILY 30 Days Reported [chemotherapy] 1 Injection IJ DIRECTED Xanax (Alprazolam) 0.25 Mg Tab 0.25 Mg PO Q8H PRN Nadolol 20 Mg Tab 20 Mg PO DAILY Allergies: Coded Allergies: No Known Allergies (Unverified , 02/23/17) Active Ordered Medications Current Medications Medications (Trade) Dose Ordered Sig/Maria Luisa Route Start Time Stop Time Status Last Admin (NS Flush) 2 ml UNSCH PRN IV FLUSH 02/23/17 19:30 (NS Flush) 2 ml BID IV FLUSH 02/23/17 21:00 (Zofran Inj) 4 mg Q6H PRN IVP 02/23/17 20:00 Naloxone HCl 0.4 mg 0.4 mg UNSCH PRN IV 02/23/17 19:30 (Maxipime Inj/NS Inj) 100 ml @ 200 mls/hr Q12H IV 02/24/17 09:00 Family History Sister: Lupus Mom: brain ca Dad: heart failure, MS, CVA Etoh abuse is heavy in family. Social History Tobacco use: 3 cigarettes a day Alcohol use: Quit 2 1/2 years ago, heavy drinker prior Illicit drug use: Denies Physical Exam Vital Signs Vital Signs Date Time Temp Pulse Resp B/P Pulse Ox O2 Delivery O2 Flow Rate FiO2 02/23/17 18:49 76 20 148/77 98 Room Air 02/23/17 16:24 98.7 82 20 124/77 99 Physical Exam GENERAL: Fairly well patient in NAD SKIN: No rashes, ecchymoses or lesions. Cool and dry. HEAD: Atraumatic. Normocephalic. EYES: Pupils equal round and reactive. ENT: Nose without bleeding, purulent drainage or septal hematoma. NECK: Trachea midline. No JVD or lymphadenopathy. CARDIOVASCULAR: Regular rate and rhythm without murmurs, gallops, or rubs. RESPIRATORY: Diminished Breath sounds equal bilaterally. No wheezes, rales, or rhonchi. Non productive Cough GASTROINTESTINAL: Abdomen soft, non-tender, nondistended. No hepato-splenomegaly , or palpable masses. MUSCULOSKELETAL: Extremities without clubbing, cyanosis, or edema. No joint tenderness, effusion, or edema noted. No calf tenderness. NEUROLOGICAL: Awake and alert. Motor and sensory grossly within normal limits. Normal speech. Laboratory Laboratory Tests Test 02/23/17 17:00 White Blood Count 2.3 Red Blood Count 3.37 Hemoglobin 10.6 Hematocrit 32.5 Mean Corpuscular Volume 96.5 Mean Corpuscular Hemoglobin 31.6 Mean Corpuscular Hemoglobin 32.7 Concent Red Cell Distribution Width 19.5 Platelet Count 130 Mean Platelet Volume 9.1 Neutrophils (%) (Auto) 52.6 Lymphocytes (%) (Auto) 17.4 Monocytes (%) (Auto) 29.0 Eosinophils (%) (Auto) 0.4 Basophils (%) (Auto) 0.6 Neutrophils # (Auto) 1.2 Lymphocytes # (Auto) 0.4 Monocytes # (Auto) 0.7 Eosinophils # (Auto) 0.0 Basophils # (Auto) 0.0 CBC Comment DIFF FINAL Differential Comment Prothrombin Time 11.3 Prothromb Time International 1.0 Ratio Activated Partial 24.4 Thromboplast Time Sodium Level 142 Potassium Level 4.0 Chloride Level 108 Carbon Dioxide Level 27.8 Anion Gap 6 Blood Urea Nitrogen 9 Creatinine 0.54 Estimat Glomerular Filtration 112 Rate Random Glucose 92 Calcium Level 8.0 Total Bilirubin 0.5 Aspartate Amino Transf 33 (AST/SGOT) Alanine Aminotransferase 20 (ALT/SGPT) Alkaline Phosphatase 84 Total Protein 5.4 Albumin 2.6 Result Diagram: 02/23/17 1700 02/23/17 1700 Imaging Last Impressions Chest X-Ray 02/23/17 1635 Signed Impressions: Service Date/Time: February 16:35 - CONCLUSION: New Mild right middle lobe infiltrate. Scott Fregoso MD Assessment and Plan Problem List: (1) Pneumonia ICD Code: J18.9 Status: Acute (2) Leukopenia ICD Code: D72.819 Status: Acute (3) Breast cancer, left ICD Code: C50.912 Status: Chronic Assessment and Plan 71 y/o with a history of HTN, COPD, seizure disorder since age 4 (not on medications since age 50) Uterine CA, throat ca, tongue ca,breast ca and currently undergoing chemo and cirrhosis presented to the ED with weakness and dizziness. She has been feeling weak for the last 5 or 6 days, with associated dizziness, ringing in her ears, and sinus pain. Pneumonia, treated 2 weeks ago with Levaquin, non productive cough and immunocompromised Chest xray reviewed shows new mid lung infiltrate -Cefepime IV -Duonebs scheduled and prn -Incentive spirometer -legionella and pneumococcal urinary antigen ordered Leukopenia, wbc 2.3, currently undergoing chemo for breast cancer, no fevers -Consult medical oncologist Dr. Mercedes, patient known to him -CBC in AM Vertigo, suspected related to fatigue and leukopenia -Brando US carotids ordered -Orthostatic BP HTN, chronic -Reorder home medication nadolol Black stools, patient reports for the last week, hemoglobin stable -occult stool ordered -Trend hemoglobin, will order GI consult if needed. DVT prophylaxis: SCDs This note was transcribed by scribsilverio [Jasmin Tolbert]. I, Dr. Liam Bustamante personally performed the history, physical exam, and medical decision making; and confirmed the accuracy of the information in the transcribed note. Authenticated by Dr. Liam Bustamante on 02/23/17 at 20:29. Discussed Condition With Patient and ED physician Jasmin Tolbert Feb 23, 2017 20:31 Liam Bustamante MD Feb 24, 2017 07:46
[2017-02-23] MEDS ORDERED: RESP: ALBUTEROL 2.5 MG/IPRATROPIUM 0.5 MG NEB (PRN) NEB (21:15)
--- NOTE | 2017-02-23 22:16 | RADRPT ---
EXAM DATE/TIME: 02/23/2017 21:32 [facility] COMPARISON: No previous studies available for comparison. INDICATIONS : Dizziness. MEDICAL HISTORY : Chronic obstructive pulmonary disease. Hypercholesterolemia. Myocardial infarction. Transient ischemi c attack. Seizures. Anticoagulant therapy, Aspirin. Hypertension. Gastroesophageal reflux disease. Ut erine cancer. Breast cancer. Sciatica. Liver cirrhosis. Depression. Anxiety. Throat cancer. Radiation therapy. Chemotherapy. Measles. Blood transfusion. SURGICAL HISTORY : Tonsillectomy. Appendectomy. Hysterectomy. Bilateral mastectomy. Port placement. Polyp removal. G-tub e placement and removal. Fissure fusion. ENCOUNTER: Initial ACUITY: 1 day PAIN SCORE: 2/10 LOCATION: Bilateral neck PEAK SYSTOLIC VELOCITIES (cm/sec): ICA/CCA RATIO: Right: 1.3 Left: 0.7 ICA: Right: 108 Left: 88 CCA: Right: 82 Left: 131 ECA: Right: 181 Left: 184 VERTEBRAL: Right: 49 antegrade Left: 68 antegrade Elevated flow velocities and ICA/CCA ratios have been found to correlate with increased degrees of vessel stenosis, calculated as percentage of diameter relative to a normal segment of distal ICA/CCA FINDINGS: RIGHT CAROTID: Prominent shadowing concentric plaque in the carotid bulb and scattered areas of calcified plaque in the common carotid artery. The no negative velocity components in the internal carotid artery. LEFT CAROTID: Moderate amount of shadowing plaque in the carotid bulb. No negative velocity components in the inte rnal carotid artery. VERTEBRAL ARTERIES: Antegrade flow is seen in both vertebral arteries. CONCLUSION: Moderate plaque formation in the carotid bulb bilaterally with hemodynamic parameters suggesting less than 50% stenosis. Jan Caballero MD on February 23, 2017 at 22:11 Board Certified Radiologist. This report was verified electronically.
[2017-02-23 22:26] VITALS: BP 162/83; PULSE 87; RESP 18; O2SAT 98
[2017-02-23 22:57] LABS: BLOOD, URINE NEG (NEG); GLUCOSE,URINE NEG (NEG); KETONE, URINE NEG (NEG); NITRITE,URINE NEG (NEG); SQUAMOUS EPITHELIAL CELL URINE <1 /hpf (0-5); URINE COLOR LIGHT-YELLOW (YELLW/STRAW)
[2017-02-23 23:00] VITALS: BP_SYST 112; BP_SYST 146; BP_SYST 87; BP_DIAS 61; BP_DIAS 69; BP_DIAS 79; PULSE 74; RESP 18; TEMP 96.6; O2SAT 98
[2017-02-23 23:09] LABS: COMMENT (UR) CULTURE INDICATED; CULTURE IF INDICATED CULTURE INDICATED
[2017-02-23] MEDS: RESP: ALBUTEROL 2.5 MG/IPRATROPIUM 0.5 MG NEB (SCH) NEB ×2 (23:19→23:24)
[2017-02-23] MEDS: SODIUM CHLORIDE 0.9% FLUSH 10 ML FLUSH IV FLUSH SCH (23:30)
[2017-02-23] MEDS: ALPRAZolam 0.25 MG TAB PO PRN (23:41)
[2017-02-24] VITALS (10 sets, daily range): BP systolic 92–145; BP diastolic 58–83; PULSE 66–86; RESP 17–20; TEMP 97–97.7; O2SAT 97–100
[2017-02-24] MEDS: RESP: ALBUTEROL 2.5 MG/IPRATROPIUM 0.5 MG NEB (SCH) NEB ×6 (04:19→23:57)
[2017-02-24 05:53] LABS: AUTOMATED NEUTROPHIL # 1.3 TH/MM3 (1.8-7.7); BASOPHIL % 0.6 % (0.0-2.0); EOSINOPHIL % 0.3 % (0.0-4.0); HEMATOCRIT 30.7 % (35.0-46.0); HEMO FLAGS DIFF FINAL; LYMPH % 17.6 % (9.0-44.0); LYMPHOCYTE # 0.4 TH/MM3 (1.0-4.8); MEAN CELL VOLUME 95.5 FL (80.0-100.0); MEAN CORPUSCULAR HEMOGLOBIN 32.2 PG (27.0-34.0); MEAN CORPUSCULAR HGB CONC 33.7 % (32.0-36.0); MONO % 22.5 % (0.0-8.0); PLATELET COUNT 100 TH/MM3 (150-450); RED BLOOD COUNT 3.22 MIL/MM3 (4.00-5.30); RED CELL DISTRIBUTION WIDTH 19.6 % (11.6-17.2); WHITE BLOOD COUNT 2.2 TH/MM3 (4.0-11.0)
[2017-02-24 06:23] LABS: BICARBONATE 25.5 MEQ/L (21.0-32.0); POTASSIUM 3.9 MEQ/L (3.5-5.1)
[2017-02-24] MEDS ORDERED: SODIUM CHLOR 0.9% 1000 ML INJ 1,000 ML IV ONE (08:00)
--- NOTE | 2017-02-24 08:00 | HHI.PR ---
Subjective Remarks resting comfortably with no distress. feels weak. has occasional dry cough. afebrile. d/w the RN. Objective Vitals Vital Signs Date Time Temp Pulse Resp B/P Pulse Ox O2 Delivery O2 Flow Rate FiO2 02/24/17 04:03 66 02/24/17 04:00 97.0 66 17 145/69 100 02/24/17 00:02 77 02/23/17 23:00 96.6 74 18 146/79 98 112/69 87/61 02/23/17 22:26 87 18 162/83 98 Room Air 02/23/17 18:49 76 20 148/77 98 Room Air 02/23/17 16:24 98.7 82 20 124/77 99 Result Diagram: 02/24/17 0515 02/24/17 0515 Imaging Last Impressions Chest X-Ray 02/23/17 1635 Signed Impressions: Service Date/Time: February 16:35 - CONCLUSION: New Mild right middle lobe infiltrate. Scott Fregoso MD Carotid Artery Ultrasound 02/23/17 0000 Signed Impressions: Service Date/Time: February 21:32 - CONCLUSION: Moderate plaque formation in the carotid bulb bilaterally with hemodynamic parameters suggesting less than 50%% stenosis. Jan Caballero MD Objective Remarks GENERAL: This is a well-nourished, well-developed patient, in no apparent distress. CARDIOVASCULAR: Regular rate and regular rhythm without murmurs, gallops, or rubs. RESPIRATORY: Clear to auscultation. Breath sounds equal bilaterally. No wheezes , rales, or rhonchi. GASTROINTESTINAL: Abdomen soft, non-tender, nondistended. Normal, active bowel sounds MUSCULOSKELETAL: Extremities without clubbing, cyanosis, or edema. NEURO: Alert & Oriented x4 to person, place, time, situation. Moves all ext x4 Procedures none Medications and IVs Current Medications Vancomycin HCl 1250 mg/Sodium Chloride 262.5 ml @ 262.5 mls/ hr ONCE ONCE IV Last administered on 02/23/17t 20:30; Start 02/23/17 at 18:15; Stop 02/23/17 at 19: 14; Status DC Cefepime HCl/ Sodium Chloride (Maxipime Inj/NS Inj) 100 ml @ 200 mls/hr ONCE ONCE IV Last administered on 02/23/17 18:39; Start 02/23/17 at 18:15; Stop at 18:44; Status DC Sodium Chloride (NS Flush) 2 ml UNSCH PRN IV FLUSH FLUSH AFTER USING IV ACCESS ; Start 02/23/17 at 19:30 Sodium Chloride (NS Flush) 2 ml BID IV FLUSH Last administered on 02/23/17 23: 30; Start 02/23/17 at 21:00 Ondansetron HCl (Zofran Inj) 4 mg Q6H PRN IVP NAUSEA OR VOMITING; Start at 20:00 Naloxone HCl 0.4 mg 0.4 mg UNSCH PRN IV SEE LABEL COMMENTS; Start 02/23/17 at 19 :30 Cefepime HCl/ Sodium Chloride (Maxipime Inj/NS Inj) 100 ml @ 200 mls/hr Q12H IV ; Start 02/24/17 at 09:00 Albuterol/ Ipratropium (Duoneb Neb) 1 ampule Q4HR NEB NEB Last administered on 02/24/17 04:19; Start 02/23/17 at 21:15 Albuterol/ Ipratropium (Duoneb Neb) 1 ampule Q2HR NEB PRN NEB sob, cough, wheezing; Start 02/23/17 at 21:15 Nadolol (Corgard) 20 mg DAILY PO ; Start 02/24/17 at 09:00 Alprazolam (Xanax) 0.25 mg Q8H PRN PO ANXIETY Last administered on 02/23/17 23: 41; Start 02/23/17 at 22:00 A/P Assessment and Plan A/P Pneumonia, treated 2 weeks ago with Levaquin, non productive cough and immunocompromised Chest xray reviewed shows new mid lung infiltrate -Cefepime IV -Duonebs scheduled and prn -Incentive spirometer -legionella and pneumococcal urinary antigen ordered -blood cultures Leukopenia, wbc 2.3, currently undergoing chemo for breast cancer, no fevers -Consulted medical oncologist Dr. Mercedes, patient known to him -CBC in AM Vertigo, suspected related to fatigue and leukopenia and orthostatic hypotension -Brando US carotids with less than 50% stenosis - start IV fluid HTN, chronic -hold home BP meds for now Black stools, patient reports for the last week, hemoglobin stable -occult stool ordered -Trend hemoglobin, will order GI consult if needed. generalized weakness- consult PT DVT prophylaxis: Romel Brunson MD Feb 24, 2017 08:00
[2017-02-24] MEDS ORDERED: NADOLOL 20 MG TAB PO SCH (09:00)
[2017-02-24] MEDS: SODIUM CHLORIDE 0.9% FLUSH 10 ML FLUSH IV FLUSH SCH ×2 (09:00→20:59)
[2017-02-24] MEDS: CEFEPIME INJ 2,000 MG in SODIUM CHLORIDE 0.9% INJ 100 ML IV SCH ×2 (10:02→20:58)
[2017-02-24] MEDS ORDERED: ACETAMINOPHEN 325 MG TAB PO PRN (13:15)
[2017-02-24] MEDS ORDERED: FILGRASTIM 480 MCG/1.6 ML VIAL SQ ONE (15:00)
[2017-02-24] MEDS: ACETAMINOPHEN/HYDROcodone 325 MG/5 MG TAB PO PRN ×2 (15:01→20:58)
[2017-02-24] MEDS: ALPRAZolam 0.25 MG TAB PO PRN (15:01)
[2017-02-25] VITALS (12 sets, daily range): BP systolic 81–138; BP diastolic 50–68; PULSE 71–96; RESP 16–22; TEMP 96.5–98.2; O2SAT 95–99
[2017-02-25] MEDS: RESP: ALBUTEROL 2.5 MG/IPRATROPIUM 0.5 MG NEB (SCH) NEB ×6 (03:59→23:20)
[2017-02-25] MEDS: AZITHROMYCIN INJ 500 MG in SODIUM CHLOR 0.9% 250 ML INJ 250 ML IV SCH (05:38)
[2017-02-25 06:14] LABS: BASOPHIL % 0.1 % (0.0-2.0); EOSINOPHIL % 0.1 % (0.0-4.0); HEMATOCRIT 29.3 % (35.0-46.0); LYMPH % 2.4 % (9.0-44.0); LYMPHOCYTE # 0.5 TH/MM3 (1.0-4.8); MEAN CELL VOLUME 96.7 FL (80.0-100.0); MEAN CORPUSCULAR HEMOGLOBIN 31.3 PG (27.0-34.0); MEAN CORPUSCULAR HGB CONC 32.4 % (32.0-36.0); MONO % 5.6 % (0.0-8.0); NEUT % 91.8 % (16.0-70.0); PLATELET COUNT 80 TH/MM3 (150-450); RED BLOOD COUNT 3.03 MIL/MM3 (4.00-5.30); RED CELL DISTRIBUTION WIDTH 19.4 % (11.6-17.2); WHITE BLOOD COUNT 18.5 TH/MM3 (4.0-11.0)
[2017-02-25 06:23] LABS: HEMO FLAGS AUTO DIFF
--- NOTE | 2017-02-25 07:56 | HHI.PR ---
Subjective Remarks looks and feels better today. feels stronger. no sob but has occasional dry cough. afebrile. d/w the RN. Objective Vitals Vital Signs Date Time Temp Pulse Resp B/P Pulse Ox O2 Delivery O2 Flow Rate FiO2 02/25/17 04:00 97.8 86 16 125/68 97 02/25/17 00:00 98.2 82 16 102/52 97 02/24/17 23:59 97 21 02/24/17 21:58 18 02/24/17 20:00 97.1 86 17 118/69 100 109/69 93/58 02/24/17 17:00 76 134/75 126/71 92/65 02/24/17 16:00 77 02/24/17 16:00 97.2 74 18 133/83 99 02/24/17 12:00 74 02/24/17 12:00 97.7 80 20 123/71 97 02/24/17 08:00 71 02/24/17 08:00 97.6 70 20 138/73 98 I/O 02/24/17 02/24/17 02/24/17 02/25/17 02/25/17 02/25/17 07:00 15:00 23:00 07:00 15:00 23:00 Intake Total 960 ml 956 ml 240 ml Output Total 350 ml Balance 960 ml 956 ml -110 ml Intake Oral 960 ml 240 ml IV Total 956 ml Output Urine Total 350 ml # Voids 1 3 3 1 # Bowel Movements 2 Result Diagram: 02/25/17 0543 02/24/17 0515 Imaging Last Impressions Chest X-Ray 02/23/17 1635 Signed Impressions: Service Date/Time: February 16:35 - CONCLUSION: New Mild right middle lobe infiltrate. Scott Fregoso MD Carotid Artery Ultrasound 02/23/17 0000 Signed Impressions: Service Date/Time: February 21:32 - CONCLUSION: Moderate plaque formation in the carotid bulb bilaterally with hemodynamic parameters suggesting less than 50%% stenosis. Jan Caballero MD Objective Remarks GENERAL: This is a well-nourished, well-developed patient, in no apparent distress. CARDIOVASCULAR: Regular rate and regular rhythm without murmurs, gallops, or rubs. RESPIRATORY: Clear to auscultation. Breath sounds equal bilaterally. No wheezes , rales, or rhonchi. GASTROINTESTINAL: Abdomen soft, non-tender, nondistended. Normal, active bowel sounds MUSCULOSKELETAL: Extremities without clubbing, cyanosis, or edema. NEURO: Alert & Oriented x4 to person, place, time, situation. Moves all ext x4 Procedures none Medications and IVs Current Medications Vancomycin HCl 1250 mg/Sodium Chloride 262.5 ml @ 262.5 mls/ hr ONCE ONCE IV Last administered on 02/23/17 20:30; Start 02/23/17 at 18:15; Stop 02/23/17 at 19: 14; Status DC Cefepime HCl/ Sodium Chloride (Maxipime Inj/NS Inj) 100 ml @ 200 mls/hr ONCE ONCE IV Last administered on 02/23/17 18:39; Start 02/23/17 at 18:15; Stop at 18:44; Status DC Sodium Chloride (NS Flush) 2 ml UNSCH PRN IV FLUSH FLUSH AFTER USING IV ACCESS ; Start 02/23/17 at 19:30 Sodium Chloride (NS Flush) 2 ml BID IV FLUSH Last administered on 02/24/17 20: 59; Start 02/23/17 at 21:00 Ondansetron HCl (Zofran Inj) 4 mg Q6H PRN IVP NAUSEA OR VOMITING; Start at 20:00 Naloxone HCl 0.4 mg 0.4 mg UNSCH PRN IV SEE LABEL COMMENTS; Start 02/23/17 at 19 :30 Cefepime HCl/ Sodium Chloride (Maxipime Inj/NS Inj) 100 ml @ 200 mls/hr Q12H IV Last administered on 02/24/17 20:58; Start 02/24/17 at 09:00 Albuterol/ Ipratropium (Duoneb Neb) 1 ampule Q4HR NEB NEB Last administered on 02/24/17 23:57; Start 02/23/17 at 21:15 Albuterol/ Ipratropium (Duoneb Neb) 1 ampule Q2HR NEB PRN NEB sob, cough, wheezing; Start 02/23/17 at 21:15 Nadolol (Corgard) 20 mg DAILY PO ; Start 02/24/17 at 09:00; Status Hold Alprazolam 0.25 mg 0.25 mg Q8H PRN PO ANXIETY Last administered on 02/24/17 15: 01; Start 02/23/17 at 22:00 Sodium Chloride (NS 1000 ml Inj) 1,000 ml @ 100 mls/hr Q10H ONCE IV Last administered on 02/24/17 10:09; Start 02/24/17 at 08:00; Stop 02/24/17 at 17:59; Status DC Acetaminophen (Tylenol) 650 mg Q4H PRN PO FEVER/ PAIN 1-5; Start 02/24/17 at 13: 15 Acetaminophen/ Hydrocodone Bitart ([place] 5-325 Mg) 1 tab Q4H PRN PO PAIN 6-10 Last administered on 02/24/17 20:58; Start 02/24/17 at 13:15 Filgrastim 480 mcg 480 mcg ONCE ONCE SQ Last administered on 02/24/17 15:02; Start 02/24/17 at 15:00; Stop 02/24/17 at 15:01; Status DC Azithromycin/ Sodium Chloride (Zithromax Inj/ NS 250 ml Inj) 250 ml @ 250 mls/ hr Q24H IV Last administered on 02/25/17 05:38; Start 02/25/17 at 06:00 A/P Assessment and Plan A/P Pneumonia, treated 2 weeks ago with Levaquin, non productive cough and immunocompromised Chest xray reviewed shows new mid lung infiltrate -continue Cefepime IV -Duonebs scheduled and prn -Incentive spirometer -legionella and pneumococcal urinary antigen negative -follow the blood cultures Leukopenia- improved after neupogen -Consulted medical oncologist Dr. Mercedes, patient known to him -CBC in AM Vertigo, suspected related to fatigue and leukopenia and orthostatic hypotension - improved -[place] US carotids with less than 50% stenosis - received IV fluid HTN, chronic -hold home BP meds for now Black stools, patient reports for the last week, hemoglobin fairly stable -occult stool ordered -Trend hemoglobin, will order GI consult if needed. generalized weakness- consulted PT DVT prophylaxis: Romel Brunson MD Feb 25, 2017 07:56
[2017-02-25 08:10] LABS: BANDS 11 % (0-6); NEUTROPHIL # MANUAL DIFF 17.8 TH/MM3 (1.8-7.7); POLYS (SEG NEUTROPHILS) 85 % (16-70); WBC DIFF SAMPLE 100
[2017-02-25 08:11] LABS: OVALOCYTES 1+ (NORMAL); PLATELET ESTIMATE SMEAR LOW (NORMAL); PLATELET MORPHOLOGY NORMAL (NORMAL); SCAN/DIFF FINAL DIFF MANUAL
[2017-02-25] MEDS: SODIUM CHLORIDE 0.9% FLUSH 10 ML FLUSH IV FLUSH SCH ×2 (09:41→20:31)
[2017-02-25] MEDS: CEFEPIME INJ 2,000 MG in SODIUM CHLORIDE 0.9% INJ 100 ML IV SCH ×2 (09:41→20:30)
--- NOTE | 2017-02-25 10:26 | MB ---
cc: NETO MENDEZ DATE OF CONSULTATION: 02/24/2017 DATE OF : 1945 REASON FOR CONSULTATION The patient with a diagnosis of two synchronous malignancies, she has breast cancer as well as head and neck cancer, who presents with neutropenia, cough and not feeling well. HISTORY OF PRESENT ILLNESS Ms. Hernandez is a 71-year-old female with a history of two synchronous malignancies. She was diagnosed with infiltrating ductal carcinoma of the left breast. She underwent bilateral mastectomies. This was an invasive moderately differentiated ductal carcinoma of the breast. [place] lymph node biopsy confirmed 6/10 positive lymph nodes. She is being treated with adjuvant chemotherapy. The patient also has a history of head and neck cancer which was treated with concurrent chemotherapy and radiation treatments. The patient is now being admitted to the hospital with cough, congestion, feeling lethargic and unwell. The patient has been neutropenic. She was seen in the clinic recently and was given IV antibiotics; however, she did not improve and presented to the emergency department. She was admitted to the hospital. On admission the patient had a chest x-ray which demonstrated a new mild infiltrate in the right middle lobe. The patient was started on antibiotics. Blood cultures were drawn prior to giving her antibiotics. Testing for Legionella antigen was negative, Strep pneumoniae antigen was also negative. The patient is leukopenic. Her neutrophil count has improved over the past 24 hours and is greater than 1000. She has mild anemia with a hemoglobin of 10.6 and her platelet count is 30,000. REVIEW OF SYSTEMS A comprehensive 14-point review of systems was completed which is negative except as described in the HPI. PAST MEDICAL HISTORY 1. Invasive breast cancer. 2. Head and neck cancer. 3. Severe peripheral vascular disease. 4. COPD. 5. Tobacco abuse. 6. Liver cirrhosis. 7. Hypertension. PAST SURGICAL HISTORY 1. Mastectomy. 2. Hysterectomy. 3. Right leg bypass. FAMILY HISTORY Noncontributory to this admission. SOCIAL HISTORY She continues to smoke half-a-pack to one pack per day. She does not drink alcohol. No illicit drug use. MEDICATIONS Inpatient medications include - 1. Tylenol 650 p.o. q.4 hours p.r.n. 2. [place] 5 x 325 one tablet p.o. q.4 hours p.r.n. 3. Cefepime 2 grams IV q.12 hours. 4. Xanax 0.25 mg p.o. q.8 hours p.r.n. 5. DuoNebs one amp q.24 hours p.r.n. 6. Zofran 4 mg IV q.6 hours p.r.n. ALLERGIES NO KNOWN DRUG ALLERGIES. PHYSICAL EXAMINATION VITAL SIGNS: Blood pressure is 102/52, respiratory rate is 16, pulse is 82, temperature is 98.2, O2 sats are 97% on 21% FIO2, she has a nasal cannula in place. GENERAL: Acutely ill patient, in no apparent distress. HEENT: Pupils are equal, round and reactive to light. EOMI. No oral thrush. No oral lesions. NECK: Neck is supple. No JVD. No bruits. No lymphadenopathy. CHEST: Chest has scattered rhonchi, some expiratory wheezing. CARDIAC: S1, S2. Regular rate and rhythm. ABDOMEN: Abdomen is soft, nontender, nondistended. Bowel sounds are present. EXTREMITIES: Extremities without any edema, erythema or cyanosis. SKIN: Skin without any petechiae, lesions or bruises. NEUROLOGIC: No focal deficits. PSYCHIATRIC: Mood and affect is appropriate. LABORATORY DATA WBC is 2.2, hemoglobin is 10.4, MCV is 95.5, platelet count is 100. Serum chemistries show sodium of 140, potassium 3.9, chloride is 106, CO2 is 25.5, anion gap is 9, BUN is 8, creatinine 0.54, GFR is 112, glucose is 103, calcium is 8.4, albumin is 2.6. IMAGING Chest x-ray was reviewed in the EMR, this shows a new mid right middle lobe infiltrate. ASSESSMENT AND PLAN This is a 71-year-old female who has a diagnosis of two synchronous malignancies. She is currently being treated for invasive breast cancer. She is receiving adjuvant chemotherapy. Recently she was also treated for head and neck cancer and received concurrent chemotherapy and radiation. Unfortunately, she continues to smoke. She has COPD. She has severe peripheral vascular disease. She presents with leukopenia, shortness of breath and weakness and chest x-ray revealed pneumonia. 1. Right middle lobe pneumonia. She is currently on cefepime. I will add azithromycin. Agree with Luz. She is currently on supplemental oxygen. Blood cultures are pending. If she continues to improve over the weekend and blood cultures are negative, we can discharge her on Levaquin p.o. daily x10 days. 2. Neutropenia. She was severely neutropenic prior to her admission but her ANC is now above 1000. I will give her Neupogen injection x1 today. Hopefully, this will push her white blood cell count to a high number. 3. Mild anemia due to chemotherapy. 4. Tobacco abuse and COPD. She was counseled to quit smoking again. 5. History of severe peripheral vascular disease. Thank you for allowing me to participate in the care of this patient. MD VIMAL Osman/BJF /3:32 AM /10:02 AM MTDD
[2017-02-25] MEDS: ACETAMINOPHEN/HYDROcodone 325 MG/5 MG TAB PO PRN (17:56)
[2017-02-25] MEDS: ALPRAZolam 0.25 MG TAB PO PRN (17:59)
[2017-02-26] VITALS (14 sets, daily range): BP systolic 84–128; BP diastolic 55–67; PULSE 80–99; RESP 16–22; TEMP 96.3–98.1; O2SAT 93–100
[2017-02-26] MEDS: RESP: ALBUTEROL 2.5 MG/IPRATROPIUM 0.5 MG NEB (SCH) NEB ×6 (04:00→23:18)
[2017-02-26] MEDS: AZITHROMYCIN INJ 500 MG in SODIUM CHLOR 0.9% 250 ML INJ 250 ML IV SCH (05:50)
[2017-02-26] MEDS: ACETAMINOPHEN/HYDROcodone 325 MG/5 MG TAB PO PRN ×3 (05:50→20:09)
[2017-02-26 07:03] LABS: AUTOMATED NEUTROPHIL # 12.9 TH/MM3 (1.8-7.7); BASOPHIL % 0.2 % (0.0-2.0); HEMATOCRIT 28.9 % (35.0-46.0); LYMPH % 4.9 % (9.0-44.0); LYMPHOCYTE # 0.7 TH/MM3 (1.0-4.8); MEAN CELL VOLUME 96.3 FL (80.0-100.0); MEAN CORPUSCULAR HEMOGLOBIN 31.9 PG (27.0-34.0); MEAN CORPUSCULAR HGB CONC 33.1 % (32.0-36.0); MONO % 7.2 % (0.0-8.0); NEUT % 87.7 % (16.0-70.0); PLATELET COUNT 79 TH/MM3 (150-450); RED CELL DISTRIBUTION WIDTH 19.7 % (11.6-17.2); WHITE BLOOD COUNT 14.7 TH/MM3 (4.0-11.0)
[2017-02-26 07:08] LABS: HEMO FLAGS AUTO DIFF
[2017-02-26 07:56] LABS: BANDS 17 % (0-6); NEUTROPHIL # MANUAL DIFF 13.7 TH/MM3 (1.8-7.7); POLYS (SEG NEUTROPHILS) 76 % (16-70); WBC DIFF SAMPLE 100
[2017-02-26 07:57] LABS: OVALOCYTES 1+ (NORMAL); PLATELET ESTIMATE SMEAR LOW (NORMAL); PLATELET MORPHOLOGY NORMAL (NORMAL); SCAN/DIFF FINAL DIFF MANUAL
--- NOTE | 2017-02-26 08:06 | HHI.PR ---
Subjective Remarks resting comfortably with no distress. had mild headache earlier which has resolved. no fever. d/w the RN. Objective Vitals Vital Signs Date Time Temp Pulse Resp B/P Pulse Ox O2 Delivery O2 Flow Rate FiO2 02/26/17 04:00 98.0 87 16 113/65 96 02/26/17 00:09 98 02/26/17 00:00 98.1 88 17 108/64 96 02/25/17 23:21 99 21 02/25/17 20:36 95 21 02/25/17 20:10 91 02/25/17 20:00 97.0 94 16 111/50 97 111/56 81/54 02/25/17 16:08 97.8 96 21 138/66 98 02/25/17 12:05 96.5 89 22 102/59 95 02/25/17 08:38 98 21 02/25/17 08:36 97.6 82 22 120/67 95 I/O 02/25/17 02/25/17 02/25/17 02/26/17 02/26/17 02/26/17 07:00 15:00 23:00 07:00 15:00 23:00 Intake Total 240 ml 820 ml 240 ml 240 ml Output Total 350 ml 250 ml Balance -110 ml 820 ml 240 ml -10 ml Intake Oral 240 ml 720 ml 240 ml 240 ml IV Total 100 ml Output Urine Total 350 ml 250 ml # Voids 1 3 3 # Bowel Movements 2 1 Result Diagram: 02/26/17 0600 02/24/17 0515 Imaging Last Impressions Chest X-Ray 02/23/17 1635 Signed Impressions: Service Date/Time: February 16:35 - CONCLUSION: New Mild right middle lobe infiltrate. Scott Fregoso MD Carotid Artery Ultrasound 02/23/17 0000 Signed Impressions: Service Date/Time: February 21:32 - CONCLUSION: Moderate plaque formation in the carotid bulb bilaterally with hemodynamic parameters suggesting less than 50%% stenosis. Jan Caballero MD Objective Remarks GENERAL: This is a well-nourished, well-developed patient, in no apparent distress. CARDIOVASCULAR: Regular rate and regular rhythm without murmurs, gallops, or rubs. RESPIRATORY: Clear to auscultation. Breath sounds equal bilaterally. No wheezes , rales, or rhonchi. GASTROINTESTINAL: Abdomen soft, non-tender, nondistended. Normal, active bowel sounds MUSCULOSKELETAL: Extremities without clubbing, cyanosis, or edema. NEURO: Alert & Oriented x4 to person, place, time, situation. Moves all ext x4 Procedures none Medications and IVs Current Medications Vancomycin HCl 1250 mg/Sodium Chloride 262.5 ml @ 262.5 mls/ hr ONCE ONCE IV Last administered on 02/23/17 20:30; Start 02/23/17 at 18:15; Stop 02/23/17 at 19: 14; Status DC Cefepime HCl/ Sodium Chloride (Maxipime Inj/NS Inj) 100 ml @ 200 mls/hr ONCE ONCE IV Last administered on 02/23/17 18:39; Start 02/23/17 at 18:15; Stop at 18:44; Status DC Sodium Chloride (NS Flush) 2 ml UNSCH PRN IV FLUSH FLUSH AFTER USING IV ACCESS ; Start 02/23/17 at 19:30 Sodium Chloride (NS Flush) 2 ml BID IV FLUSH Last administered on 02/25/17 20: 31; Start 02/23/17 at 21:00 Ondansetron HCl (Zofran Inj) 4 mg Q6H PRN IVP NAUSEA OR VOMITING; Start at 20:00 Naloxone HCl 0.4 mg 0.4 mg UNSCH PRN IV SEE LABEL COMMENTS; Start 02/23/17 at 19 :30 Cefepime HCl/ Sodium Chloride (Maxipime Inj/NS Inj) 100 ml @ 200 mls/hr Q12H IV Last administered on 02/25/17 20:30; Start 02/24/17 at 09:00 Albuterol/ Ipratropium (Duoneb Neb) 1 ampule Q4HR NEB NEB Last administered on 02/26/17 07:56; Start 02/23/17 at 21:15 Albuterol/ Ipratropium (Duoneb Neb) 1 ampule Q2HR NEB PRN NEB sob, cough, wheezing; Start 02/23/17 at 21:15 Nadolol (Corgard) 20 mg DAILY PO ; Start 02/24/17 at 09:00; Status Hold Alprazolam 0.25 mg 0.25 mg Q8H PRN PO ANXIETY Last administered on 02/25/17 17: 59; Start 02/23/17 at 22:00 Sodium Chloride (NS 1000 ml Inj) 1,000 ml @ 100 mls/hr Q10H ONCE IV Last administered on 02/24/17 10:09; Start 02/24/17 at 08:00; Stop 02/24/17 at 17:59; Status DC Acetaminophen (Tylenol) 650 mg Q4H PRN PO FEVER/ PAIN 1-5; Start 02/24/17 at 13: 15 Acetaminophen/ Hydrocodone Bitart ([place] 5-325 Mg) 1 tab Q4H PRN PO PAIN 6-10 Last administered on 02/26/17 05:50; Start 02/24/17 at 13:15 Filgrastim 480 mcg 480 mcg ONCE ONCE SQ Last administered on 02/24/17 15:02; Start 02/24/17 at 15:00; Stop 02/24/17 at 15:01; Status DC Azithromycin/ Sodium Chloride (Zithromax Inj/ NS 250 ml Inj) 250 ml @ 250 mls/ hr Q24H IV Last administered on 02/26/17 05:50; Start 02/25/17 at 06:00 A/P Assessment and Plan A/P Pneumonia, treated 2 weeks ago with Levaquin, non productive cough and immunocompromised Chest xray reviewed shows new mid lung infiltrate -continue Cefepime IV -Duonebs scheduled and prn -Incentive spirometer -legionella and pneumococcal urinary antigen negative -blood cultures negative so far Leukopenia- improved after neupogen -Consulted medical oncologist Dr. Mercedes, patient known to him -CBC in AM Vertigo, suspected related to fatigue and leukopenia and orthostatic hypotension - improved -[place] US carotids with less than 50% stenosis - restart IV fluid HTN, chronic- BP controlled- -hold home BP meds for now Black stools, patient reports for the last week, hemoglobin fairly stable -occult stool ordered -Trend hemoglobin, will order GI consult if needed. generalized weakness- consulted PT DVT prophylaxis: SCDs Discharge Planning possible dc home tomorrow if stable. will consult case management for [facility]. Romel Jones MD Feb 26, 2017 08:06
[2017-02-26] MEDS ORDERED: AUGM875T3 PO (08:07)
--- NOTE | 2017-02-26 08:07 | HHI.DCPOC ---
Discharge Care Plan Diagnosis: (1) Pneumonia Your Health Problems Are: Cough Shortness of Breath Goals to Promote Your Health * To prevent worsening of your condition and complications * To maintain your health at the optimal level Directions to Meet Your Goals Take your medications as prescribed Follow your dietary instruction Follow activity as directed Keep your appointments as scheduled Take your immunizations and boosters as scheduled If your symptoms worsen call your PCP, if no PCP go to Urgent Care Center or Emergency Room Smoking is Dangerous to Your Health. Avoid second hand smoke Call the 24-hour hour crisis hotline for domestic abuse at Romel Jones MD Feb 26, 2017 08:07
[2017-02-26] MEDS ORDERED: GETGO ROLLING W1 MI1 (08:08)
--- NOTE | 2017-02-26 08:09 | HHI.FF ---
Face to Face Verification Diagnosis: (1) Breast cancer, left (2) Generalized weakness Physical Therapy Order: Evaluate and Treat Home Health Nursing Order: Medical education Signs/symptoms of disease process Medication education-adverse effect Nursing assessment with vital signs I have seen patient Bhavana Watters on 02/26/17. My clinical findings support the need for the requested home health care services because: Ltd mobility - disease progression I certify that my clinical findings support that this patient is homebound because: Unsteady gait/balance Romel Jones MD Feb 26, 2017 08:09
[2017-02-26] MEDS ORDERED: SODIUM CHLOR 0.9% 1000 ML INJ 1,000 ML IV ONE (08:15)
[2017-02-26] MEDS: CEFEPIME INJ 2,000 MG in SODIUM CHLORIDE 0.9% INJ 100 ML IV SCH ×2 (09:22→20:04)
[2017-02-26] MEDS: SODIUM CHLORIDE 0.9% FLUSH 10 ML FLUSH IV FLUSH SCH ×2 (09:22→20:04)
[2017-02-26] MEDS: ALPRAZolam 0.25 MG TAB PO PRN (16:26)
[2017-02-27] VITALS (15 sets, daily range): BP systolic 77–148; BP diastolic 51–82; PULSE 85–123; RESP 16–18; TEMP 97.5–98.6; O2SAT 93–99
[2017-02-27] MEDS: RESP: ALBUTEROL 2.5 MG/IPRATROPIUM 0.5 MG NEB (SCH) NEB ×5 (03:10→21:08)
[2017-02-27] MEDS: AZITHROMYCIN INJ 500 MG in SODIUM CHLOR 0.9% 250 ML INJ 250 ML IV SCH (05:34)
[2017-02-27 06:28] LABS: HEMATOCRIT 28.3 % (35.0-46.0); MEAN CELL VOLUME 96.2 FL (80.0-100.0); MEAN CORPUSCULAR HGB CONC 33.2 % (32.0-36.0); PLATELET COUNT 66 TH/MM3 (150-450); RED BLOOD COUNT 2.94 MIL/MM3 (4.00-5.30); RED CELL DISTRIBUTION WIDTH 19.4 % (11.6-17.2)
[2017-02-27 06:32] LABS: HEMO FLAGS AUTO DIFF
[2017-02-27 07:39] LABS: BANDS 13 % (0-6); NEUTROPHIL # MANUAL DIFF 5.1 TH/MM3 (1.8-7.7); OVALOCYTES 1+ (NORMAL); POLYS (SEG NEUTROPHILS) 72 % (16-70); WBC DIFF SAMPLE 100
[2017-02-27 07:40] LABS: PLATELET ESTIMATE SMEAR LOW (NORMAL); PLATELET MORPHOLOGY NORMAL (NORMAL); SCAN/DIFF FINAL DIFF MANUAL
--- NOTE | 2017-02-27 08:39 | HHI.PR ---
Subjective Remarks in no acute distress. overall improving. dizziness has improved to some extent. afebrile. d/w the RN. Objective Vitals Vital Signs Date Time Temp Pulse Resp B/P Pulse Ox O2 Delivery O2 Flow Rate FiO2 02/27/17 04:00 97.5 88 17 138/73 97 02/27/17 04:00 85 02/27/17 00:02 89 02/27/17 00:00 97.8 89 16 125/69 97 02/26/17 20:04 96 21 02/26/17 20:03 89 02/26/17 20:00 98.0 87 17 128/64 96 112/67 84/55 02/26/17 16:05 97.6 82 21 101/60 95 02/26/17 16:05 83 02/26/17 12:19 84 21 122/66 98 02/26/17 12:17 99 21 116/67 93 02/26/17 12:16 97.5 96 21 114/63 95 02/26/17 12:04 89 I/O 02/26/17 02/26/17 02/26/17 02/27/17 02/27/17 02/27/17 07:00 15:00 23:00 07:00 15:00 23:00 Intake Total 240 ml 1397 ml 480 ml 240 ml Output Total 250 ml 400 ml 750 ml Balance -10 ml 1397 ml 80 ml -510 ml Intake Oral 240 ml 240 ml 480 ml 240 ml IV Total 1157 ml Output Urine Total 250 ml 400 ml 750 ml # Voids 4 # Bowel Movements 1 Result Diagram: 02/27/17 0536 02/24/17 0515 Imaging Last Impressions Chest X-Ray 02/23/17 1635 Signed Impressions: Service Date/Time: February 16:35 - CONCLUSION: New Mild right middle lobe infiltrate. Scott Fregoso MD Carotid Artery Ultrasound 02/23/17 0000 Signed Impressions: Service Date/Time: February 21:32 - CONCLUSION: Moderate plaque formation in the carotid bulb bilaterally with hemodynamic parameters suggesting less than 50%% stenosis. Jan Caballero MD Objective Remarks GENERAL: This is a well-nourished, well-developed patient, in no apparent distress. CARDIOVASCULAR: Regular rate and regular rhythm without murmurs, gallops, or rubs. RESPIRATORY: Clear to auscultation. Breath sounds equal bilaterally. No wheezes , rales, or rhonchi. GASTROINTESTINAL: Abdomen soft, non-tender, nondistended. Normal, active bowel sounds MUSCULOSKELETAL: Extremities without clubbing, cyanosis, or edema. NEURO: Alert & Oriented x4 to person, place, time, situation. Moves all ext x4 Procedures none Medications and IVs Current Medications Vancomycin HCl 1250 mg/Sodium Chloride 262.5 ml @ 262.5 mls/ hr ONCE ONCE IV Last administered on 02/23/17 20:30; Start 02/23/17 at 18:15; Stop 02/23/17 at 19: 14; Status DC Cefepime HCl/ Sodium Chloride (Maxipime Inj/NS Inj) 100 ml @ 200 mls/hr ONCE ONCE IV Last administered on 02/23/17 18:39; Start 02/23/17 at 18:15; Stop at 18:44; Status DC Sodium Chloride (NS Flush) 2 ml UNSCH PRN IV FLUSH FLUSH AFTER USING IV ACCESS ; Start 02/23/17 at 19:30 Sodium Chloride (NS Flush) 2 ml BID IV FLUSH Last administered on 02/26/17 09: 22; Start 02/23/17 at 21:00 Ondansetron HCl (Zofran Inj) 4 mg Q6H PRN IVP NAUSEA OR VOMITING; Start at 20:00 Naloxone HCl 0.4 mg 0.4 mg UNSCH PRN IV SEE LABEL COMMENTS; Start 02/23/17 at 19 :30 Cefepime HCl/ Sodium Chloride (Maxipime Inj/NS Inj) 100 ml @ 200 mls/hr Q12H IV Last administered on 02/26/17 20:04; Start 02/24/17 at 09:00 Albuterol/ Ipratropium (Duoneb Neb) 1 ampule Q4HR NEB NEB Last administered on 02/27/17 07:59; Start 02/23/17 at 21:15 Albuterol/ Ipratropium (Duoneb Neb) 1 ampule Q2HR NEB PRN NEB sob, cough, wheezing; Start 02/23/17 at 21:15 Nadolol (Corgard) 20 mg DAILY PO ; Start 02/24/17 at 09:00; Status Hold Alprazolam 0.25 mg 0.25 mg Q8H PRN PO ANXIETY Last administered on 02/26/17 16: 26; Start 02/23/17 at 22:00 Sodium Chloride (NS 1000 ml Inj) 1,000 ml @ 100 mls/hr Q10H ONCE IV Last administered on 02/24/17 10:09; Start 02/24/17 at 08:00; Stop 02/24/17 at 17:59; Status DC Acetaminophen (Tylenol) 650 mg Q4H PRN PO FEVER/ PAIN 1-5; Start 02/24/17 at 13: 15 Acetaminophen/ Hydrocodone Bitart ([place] 5-325 Mg) 1 tab Q4H PRN PO PAIN 6-10 Last administered on 02/26/17 20:09; Start 02/24/17 at 13:15 Filgrastim 480 mcg 480 mcg ONCE ONCE SQ Last administered on 02/24/17 15:02; Start 02/24/17 at 15:00; Stop 02/24/17 at 15:01; Status DC Azithromycin 500 mg/Sodium Chloride 250 ml @ 250 mls/hr Q24H IV Last administered on 02/27/17 05:34; Start 02/25/17 at 06:00 Sodium Chloride (NS 1000 ml Inj) 1,000 ml @ 84 mls/hr [id number] ONCE IV Last administered on 02/26/17 09:22; Start 02/26/17 at 08:15; Stop 02/26/17 at 20:09; Status DC A/P Assessment and Plan A/P Pneumonia, treated 2 weeks ago with Levaquin, non productive cough and immunocompromised Chest xray reviewed shows new mid lung infiltrate -continue Cefepime IV and zithromax -Duonebs scheduled and prn -Incentive spirometer -legionella and pneumococcal urinary antigen negative -blood cultures negative so far Leukopenia- improved after neupogen -Consulted medical oncologist Dr. Mercedes, patient known to him -CBC in AM Vertigo, suspected related to fatigue and leukopenia and orthostatic hypotension - -[place] US carotids with less than 50% stenosis -check AM cortisol level - continue IV fluid HTN, chronic- BP controlled- -hold home BP meds for now Black stools, patient reports for the last week, hemoglobin fairly stable -occult stool ordered -Trend hemoglobin, will order GI consult if needed. generalized weakness- consulted PT DVT prophylaxis: SCDs Discharge Planning still with dizziness although improved. will dc home tomorrow if stable. Romel Jones MD Feb 27, 2017 08:39
[2017-02-27] MEDS: CEFEPIME INJ 2,000 MG in SODIUM CHLORIDE 0.9% INJ 100 ML IV SCH ×2 (08:45→21:26)
[2017-02-27] MEDS ORDERED: SODIUM CHLOR 0.9% 1000 ML INJ 1,000 ML IV ONE (08:45)
[2017-02-27] MEDS: SODIUM CHLORIDE 0.9% FLUSH 10 ML FLUSH IV FLUSH SCH ×2 (08:48→21:27)
--- NOTE | 2017-02-27 09:47 | RADRPT ---
EXAM DATE/TIME: 02/27/2017 09:27 [place] COMPARISON: CHEST SINGLE AP, February 23, 2017, 16:35. INDICATIONS : Cough MEDICAL HISTORY : Stroke. Carcinoma, breast. Seizures. SURGICAL HISTORY : Hysterectomy. Mastectomy, bilateral. ENCOUNTER: Subsequent ACUITY: 4 - 6 days PAIN SCORE: 0/10 LOCATION: Bilateral chest FINDINGS: The heart is normal in size. There is an [id number] present. The mediastinal contours are within n ormal limits. There are chronic interstitial changes within the pulmonary parenchyma. In addition, there is a super imposed area of infiltrate or atelectasis in the right lower lobe. There is minimal right basilar eff usion. Exam would be concerning for a right lower lobe pneumonia. The visualized bony structures are intact. CONCLUSION: Right basilar infiltrate and small basilar effusion new when compared to previous dated 02/23/17. The examination would be concerning for a right basilar pneumonia. Raf Gonzalez MD on February 27, 2017 at 9:40 Board Certified Radiologist. This report was verified electronically.
--- NOTE | 2017-02-27 11:25 | PD.ONC.PN ---
Subjective Subjective Remarks Afebrile overnight. Patient resting in bed in nad. Breathing well. Continuing to have problems with orthostatic hypotension. Objective Data Date Time Temp Pulse Resp B/P Pulse Ox O2 Delivery O2 Flow Rate FiO2 02/27/17 08:49 98.1 86 18 140/77 93 101/70 77/55 02/27/17 04:00 97.5 88 17 138/73 97 02/27/17 04:00 85 02/27/17 00:02 89 02/27/17 00:00 97.8 89 16 125/69 97 02/26/17 20:04 96 21 02/26/17 20:03 89 02/26/17 20:00 98.0 87 17 128/64 96 112/67 84/55 02/26/17 16:05 97.6 82 21 101/60 95 02/26/17 16:05 83 02/26/17 12:19 84 21 122/66 98 02/26/17 12:17 99 21 116/67 93 02/26/17 12:16 97.5 96 21 114/63 95 02/26/17 12:04 89 02/27/17 02/27/17 02/27/17 07:00 15:00 23:00 Intake Total 240 ml Output Total 750 ml Balance -510 ml Result Diagram: 02/27/17 0536 02/24/17 0515 Laboratory Results Laboratory Tests Test 02/27/17 05:36 White Blood Count 6.0 TH/MM3 Red Blood Count 2.94 MIL/MM3 Hemoglobin 9.4 GM/DL Hematocrit 28.3 % Mean Corpuscular Volume 96.2 FL Mean Corpuscular Hemoglobin 32.0 PG Mean Corpuscular Hemoglobin 33.2 % Concent Red Cell Distribution Width 19.4 % Platelet Count 66 TH/MM3 Mean Platelet Volume 9.6 FL Neutrophils (%) (Auto) % Lymphocytes (%) (Auto) % Monocytes (%) (Auto) % Eosinophils (%) (Auto) % Basophils (%) (Auto) % Neutrophils # (Auto) TH/MM3 Lymphocytes # (Auto) TH/MM3 Monocytes # (Auto) TH/MM3 Eosinophils # (Auto) TH/MM3 Basophils # (Auto) TH/MM3 CBC Comment AUTO DIFF Differential Total Cells 100 Counted Neutrophils % (Manual) 72 % Band Neutrophils % 13 % Lymphocytes % 8 % Monocytes % 7 % Neutrophils # (Manual) 5.1 TH/MM3 Differential Comment FINAL DIFF MANUAL Platelet Estimate LOW Platelet Morphology Comment NORMAL Ovalocytes 1+ Culture Results Microbiology Date/Time Procedure Status Source Growth 02/24/17 11:29 Aerobic Blood Culture - Preliminary Resulted Blood Peripheral NO GROWTH IN 3 DAYS 02/24/17 11:29 Anaerobic Blood Culture - Preliminary Resulted Blood Peripheral NO GROWTH IN 3 DAYS Imaging Studies Last 24 hours Impressions Chest X-Ray 02/27/17 0000 Signed Impressions: Service Date/Time: Monday, February 27, 2017 09:27 - CONCLUSION: Right basilar infiltrate and small basilar effusion new when compared to previous dated 02/23/17. The examination would be concerning for a right basilar pneumonia. Raf Gonzalez MD Administered Medications Medications (Trade) Dose Ordered Sig/Maria Luisa Route PRN Reason Start Time Stop Time Status Last Admin Dose Admin Sodium Chloride 2 ml 2 ml BID IV FLUSH 02/23/17 21:00 02/27/17 08:48 Cefepime HCl/ Sodium Chloride (Maxipime Inj/NS Inj) 100 ml @ 200 mls/hr Q12H IV 02/24/17 09:00 02/27/17 08:45 Alprazolam (Xanax) 0.25 mg Q8H PRN PO ANXIETY 02/23/17 22:00 02/26/17 16:26 Acetaminophen/ Hydrocodone Bitart 1 tab 1 tab Q4H PRN PO PAIN 6-10 02/24/17 13:15 02/26/17 20:09 Azithromycin 500 mg/Sodium Chloride 250 ml @ 250 mls/hr Q24H IV 02/25/17 06:00 02/27/17 05:34 Sodium Chloride (NS 1000 ml Inj) 1,000 ml @ 75 mls/hr [id number] ONCE IV 02/27/17 08:45 02/27/17 22:04 02/27/17 09:55 Objective Remarks GENERAL: Pleasant elderly female, upright in bed in nad. SKIN: Warm and dry. HEAD: Normocephalic. EYES: No injection or drainage. NECK: Supple, trachea midline. CARDIOVASCULAR: Regular rate and rhythm RESPIRATORY: Breath sounds equal bilaterally. No accessory muscle use. GASTROINTESTINAL: Abdomen soft, non-tender, nondistended. EXTREMITIES: No cyanosis NEUROLOGICAL: No obvious focal deficit. Awake, alert, and oriented x3. Assessment/Plan Problem List: (1) Breast cancer, left Status: Chronic Plan: --diagnosed with infiltrating ductal carcinoma of the left breast. --underwent bilateral mastectomies. --This was an invasive moderately differentiated ductal carcinoma of the breast. --[place] lymph node biopsy confirmed 6/10 positive lymph nodes. --is being treated with adjuvant chemotherapy. (2) Head and neck cancer Status: Acute Plan: --history of head and neck cancer --was treated with concurrent chemotherapy and radiation treatments. (3) Pneumonia Status: Acute Plan: --Right middle lobe pneumonia. --currently on cefepime + azithromycin. --BC no growth (4) Orthostatic hypotension Status: Acute Plan: --unclear etiology --hypertensives being held. --primary following --AM cortisol level pending --carotid's show less than 50% stenosis bilaterally Assessment 71y/o female with two synchronous malignancies, she has breast cancer as well as head and neck cancer, admitted with neutropenia, cough and not feeling well. h/o Invasive breast cancer. Head and neck cancer. Severe peripheral vascular disease. COPD. Tobacco abuse. Liver cirrhosis. Hypertension. Plan 1. continue antibiotics. 2. monitor BP 3. monitor CBC Attending Statement The exam, history, and the medical decision-making described in the above note were completed with the assistance of the mid-level provider. I reviewed and agree with the findings presented. I attest that I had a [id number] encounter with the patient on the same day, and personally performed and documented my assessment and findings in the medical record. Chest X-ray reviewed. new right basilar infiltrate. On cefepime and Azithromycin . Blood cultures --no growth to date. no fevers repeat chest x-ray in am. Leukopenia resolved after receiving one injection of Neupogen has orthostatic hypotension ? volume depletion. agree with checking cortisol levels. NS IV bolus 500cc and then maintenance IVF Thrombocytopenia due to chemotherapy and pneumonia Anemia 2/2 chemotherapy-- Hypoalbuminemia/malnutrition: dietary consult. ensure plus tid with meals. encourage oral intake d/w rn Problem Qualifiers (1) Pneumonia: Yulisa Mcgee Feb 27, 2017 11:25 Justus Mercedes MD Feb 27, 2017 22:52
[2017-02-27] MEDS: ALPRAZolam 0.25 MG TAB PO PRN (12:17)
[2017-02-27] MEDS: ACETAMINOPHEN/HYDROcodone 325 MG/5 MG TAB PO PRN (21:28)
[2017-02-27] MEDS: SODIUM CHLORIDE 0.9% FLUSH 10 ML FLUSH IV FLUSH PRN (22:35)
[2017-02-27] MEDS ORDERED: SODIUM CHLORID 0.9% 500 ML INJ 500 ML IV SCH (23:00)
[2017-02-28] VITALS (14 sets, daily range): BP systolic 124–169; BP diastolic 65–89; PULSE 72–97; RESP 16–18; TEMP 97.6–98.2; O2SAT 96–99
[2017-02-28] MEDS: SODIUM CHLORIDE 0.9% FLUSH 10 ML FLUSH IV FLUSH PRN (04:52)
[2017-02-28] MEDS: ACETAMINOPHEN/HYDROcodone 325 MG/5 MG TAB PO PRN ×2 (05:08→16:44)
[2017-02-28] MEDS: AZITHROMYCIN INJ 500 MG in SODIUM CHLOR 0.9% 250 ML INJ 250 ML IV SCH (05:09)
--- NOTE | 2017-02-28 07:42 | RADRPT ---
EXAM DATE/TIME: 02/28/2017 07:11 [place] COMPARISON: CHEST PA & LAT, February 27, 2017, 9:27. INDICATIONS : Congestion, wheezing, shortness of breath. MEDICAL HISTORY : Carcinoma, breast. Stroke. Seizures SURGICAL HISTORY : Hysterectomy. Mastectomy, bilateral. ENCOUNTER: Subsequent ACUITY: 4 - 6 days PAIN SCORE: 0/10 LOCATION: Bilateral chest FINDINGS: PA and lateral views of the chest demonstrates mild improvement with the right lower lung infiltrate compared to the prior study. Otherwise, the lungs remain clear. No new infiltrates are demonstrated. There are no definite pleural effusions. There is stable blunting of both costophrenic angles suggest laura of pleural thickening. The heart size is stable. There is a left-sided central line in place. No pneumothorax. The bony structures are stable.. CONCLUSION: Mild improvement of the right lower lung infiltrate compared to the prior exam. Scott Fregoso MD on February 28, 2017 at 7:39 Board Certified Radiologist. This report was verified electronically.
--- NOTE | 2017-02-28 08:27 | HHI.PR ---
Subjective Remarks resting comfortably with no distress. still with some dizziness but this has improved. no sob. afebrile. d/w the RN . Objective Vitals Vital Signs Date Time Temp Pulse Resp B/P Pulse Ox O2 Delivery O2 Flow Rate FiO2 02/28/17 04:05 82 02/28/17 04:00 97.9 81 16 133/65 96 02/28/17 00:04 94 02/27/17 23:17 123 93/51 02/27/17 23:16 104 116/65 02/27/17 23:15 98.6 101 16 121/66 94 02/27/17 21:09 98 21 02/27/17 20:04 86 02/27/17 20:00 98.4 85 16 148/70 99 02/27/17 16:06 98 02/27/17 16:00 97.8 92 18 128/82 99 02/27/17 12:09 87 02/27/17 12:00 98.4 85 18 123/74 98 02/27/17 08:49 98.1 86 18 140/77 93 101/70 77/55 I/O 02/27/17 02/27/17 02/27/17 02/28/17 02/28/17 02/28/17 07:00 15:00 23:00 07:00 15:00 23:00 Intake Total 240 ml 467 ml 970 ml Output Total 750 ml 2 ml 1400 ml Balance -510 ml 465 ml -430 ml Intake Oral 240 ml 480 ml IV Total 467 ml 490 ml Output Urine Total 750 ml 2 ml 1400 ml # Voids 1 # Bowel Movements 2 Result Diagram: 02/27/17 0536 02/24/17 0515 Objective Remarks GENERAL: This is a well-nourished, well-developed patient, in no apparent distress. CARDIOVASCULAR: Regular rate and regular rhythm without murmurs, gallops, or rubs. RESPIRATORY: Clear to auscultation. Breath sounds equal bilaterally. No wheezes , rales, or rhonchi. GASTROINTESTINAL: Abdomen soft, non-tender, nondistended. Normal, active bowel sounds MUSCULOSKELETAL: Extremities without clubbing, cyanosis, or edema. NEURO: Alert & Oriented x4 to person, place, time, situation. Moves all ext x4 Procedures none Medications and IVs Current Medications Vancomycin HCl 1250 mg/Sodium Chloride 262.5 ml @ 262.5 mls/ hr ONCE ONCE IV Last administered on 02/23/17 20:30; Start 02/23/17 at 18:15; Stop 02/23/17 at 19: 14; Status DC Cefepime HCl/ Sodium Chloride (Maxipime Inj/NS Inj) 100 ml @ 200 mls/hr ONCE ONCE IV Last administered on 02/23/17 18:39; Start 02/23/17 at 18:15; Stop at 18:44; Status DC Sodium Chloride (NS Flush) 2 ml UNSCH PRN IV FLUSH FLUSH AFTER USING IV ACCESS Last administered on 02/28/17 04:52; Start 02/23/17 at 19:30 Sodium Chloride (NS Flush) 2 ml BID IV FLUSH Last administered on 02/27/17 21: 27; Start 02/23/17 at 21:00 Ondansetron HCl (Zofran Inj) 4 mg Q6H PRN IVP NAUSEA OR VOMITING; Start at 20:00 Naloxone HCl 0.4 mg 0.4 mg UNSCH PRN IV SEE LABEL COMMENTS; Start 02/23/17 at 19 :30 Cefepime HCl/ Sodium Chloride (Maxipime Inj/NS Inj) 100 ml @ 200 mls/hr Q12H IV Last administered on 02/27/17 21:26; Start 02/24/17 at 09:00 Albuterol/ Ipratropium (Duoneb Neb) 1 ampule Q4HR NEB NEB Last administered on 02/27/17 21:08; Start 02/23/17 at 21:15; Stop 02/27/17 at 21:15; Status DC Albuterol/ Ipratropium (Duoneb Neb) 1 ampule Q2HR NEB PRN NEB sob, cough, wheezing; Start 02/23/17 at 21:15 Nadolol (Corgard) 20 mg DAILY PO ; Start 02/24/17 at 09:00; Status Hold Alprazolam 0.25 mg 0.25 mg Q8H PRN PO ANXIETY Last administered on 02/27/17 12 :17; Start 02/23/17 at 22:00 Sodium Chloride (NS 1000 ml Inj) 1,000 ml @ 100 mls/hr Q10H ONCE IV Last administered on 02/24/17 10:09; Start 02/24/17 at 08:00; Stop 02/24/17 at 17:59; Status DC Acetaminophen (Tylenol) 650 mg Q4H PRN PO FEVER/ PAIN 1-5; Start 02/24/17 at 13: 15 Acetaminophen/ Hydrocodone Bitart ([place] 5-325 Mg) 1 tab Q4H PRN PO PAIN 6-10 Last administered on 02/28/17 05:08; Start 02/24/17 at 13:15 Filgrastim 480 mcg 480 mcg ONCE ONCE SQ Last administered on 02/24/17 15:02; Start 02/24/17 at 15:00; Stop 02/24/17 at 15:01; Status DC Azithromycin 500 mg/Sodium Chloride 250 ml @ 250 mls/hr Q24H IV Last administered on 02/28/17 05:09; Start 02/25/17 at 06:00 Sodium Chloride 1,000 ml @ 84 mls/hr [id number] ONCE IV Last administered on 09:22; Start 02/26/17 at 08:15; Stop 02/26/17 at 20:09; Status DC Sodium Chloride 1,000 ml @ 75 mls/hr [id number] ONCE IV Last administered on 02/27 09:55; Start 02/27/17 at 08:45; Stop 02/27/17 at 22:04; Status DC Sodium Chloride (NS 500 ml Inj) 500 ml @ 250 mls/hr Q2H IV Last administered on 02/27/17 23:00; Start 02/27/17 at 23:00; Stop 02/28/17 at 00:59; Status DC A/P Assessment and Plan A/P Pneumonia, treated 2 weeks ago with Levaquin, non productive cough and immunocompromised Chest xray on 02/28 with mild improvement -continue Cefepime IV and zithromax -Duonebs scheduled and prn -Incentive spirometer -legionella and pneumococcal urinary antigen negative -blood cultures negative so far Leukopenia- improved after neupogen -Consulted medical oncologist Dr. Mercedes, patient known to him Vertigo, suspected related to fatigue and leukopenia and orthostatic hypotension - -[place] US carotids with less than 50% stenosis -received IV fluid -will consider adding midodrine if still with orthostatic hypotension HTN, chronic- BP controlled- -hold home BP meds for now Black stools, patient reports for the last week, hemoglobin fairly stable -occult stool ordered -Trend hemoglobin, will order GI consult if needed. generalized weakness- consulted PT DVT prophylaxis: SCDs Discharge Planning dc home tomorrow if BP stable. d/w the RN and oncology PA. Romel Jones MD Feb 28, 2017 08:27
[2017-02-28] MEDS: SODIUM CHLORIDE 0.9% FLUSH 10 ML FLUSH IV FLUSH SCH ×2 (09:16→21:18)
[2017-02-28] MEDS: CEFEPIME INJ 2,000 MG in SODIUM CHLORIDE 0.9% INJ 100 ML IV SCH (09:16)
[2017-02-28] MEDS: ALPRAZolam 0.25 MG TAB PO PRN (09:18)
[2017-02-28] MEDS ORDERED: MIDODRINE 5 MG TAB PO SCH (12:30)
--- NOTE | 2017-02-28 13:36 | PD.ONC.PN ---
Subjective Subjective Remarks Afebrile overnight. Patient resting in bed in nad. Continuing to have orthostatic hypotension. otherwise doing well. Objective Data Date Time Temp Pulse Resp B/P Pulse Ox O2 Delivery O2 Flow Rate FiO2 02/28/17 12:00 98.2 76 18 130/78 99 02/28/17 08:00 97.8 75 18 124/89 98 02/28/17 04:05 82 02/28/17 04:00 97.9 81 16 133/65 96 02/28/17 00:04 94 02/27/17 23:17 123 93/51 02/27/17 23:16 104 116/65 02/27/17 23:15 98.6 101 16 121/66 94 02/27/17 21:09 98 21 02/27/17 20:04 86 02/27/17 20:00 98.4 85 16 148/70 99 02/27/17 16:06 98 02/27/17 16:00 97.8 92 18 128/82 99 02/28/17 02/28/17 02/28/17 07:00 15:00 23:00 Intake Total 360 ml Output Total 600 ml Balance -240 ml Result Diagram: 02/27/17 0536 02/24/17 0515 Laboratory Results Laboratory Tests Test 02/28/17 04:55 Random Cortisol 6.8 MCG/DL Imaging Studies Last 24 hours Impressions Chest X-Ray 02/28/17 0600 Signed Impressions: Service Date/Time: Tuesday, February 28, 2017 07:11 - CONCLUSION: Mild improvement of the right lower lung infiltrate compared to the prior exam. Scott Fregoso MD Administered Medications Medications (Trade) Dose Ordered Sig/Maria Luisa Route PRN Reason Start Time Stop Time Status Last Admin Dose Admin Sodium Chloride (NS Flush) 2 ml UNSCH PRN IV FLUSH FLUSH AFTER USING IV ACCESS 02/23/17 19:30 02/28/17 04:52 Sodium Chloride 2 ml 2 ml BID IV FLUSH 02/23/17 21:00 02/28/17 09:16 Cefepime HCl/ Sodium Chloride (Maxipime Inj/NS Inj) 100 ml @ 200 mls/hr Q12H IV 02/24/17 09:00 02/28/17 09:16 Alprazolam (Xanax) 0.25 mg Q8H PRN PO ANXIETY 02/23/17 22:00 02/28/17 09:18 Acetaminophen/ Hydrocodone Bitart 1 tab 1 tab Q4H PRN PO PAIN 6-10 02/24/17 13:15 02/28/17 05:08 Azithromycin/ Sodium Chloride (Zithromax Inj/ NS 250 ml Inj) 250 ml @ 250 mls/hr Q24H IV 02/25/17 06:00 02/28/17 05:09 Objective Remarks GENERAL: Elderly female, sitting up in bed in nad. SKIN: Warm and dry. HEAD: Normocephalic. EYES: No injection or drainage. NECK: Supple, trachea midline. CARDIOVASCULAR: Regular rate and rhythm RESPIRATORY: diminished at bases. anterior cabrera clear. occasional rhonchi GASTROINTESTINAL: Abdomen soft, non-tender, nondistended. EXTREMITIES: No cyanosis NEUROLOGICAL: awake and alert. normal speech. moving all extremities. Assessment/Plan Problem List: (1) Breast cancer, left Status: Chronic Plan: --diagnosed with infiltrating ductal carcinoma of the left breast. --underwent bilateral mastectomies. --This was an invasive moderately differentiated ductal carcinoma of the breast. --[place] lymph node biopsy confirmed / positive lymph nodes. --is being treated with adjuvant chemotherapy. (2) Head and neck cancer Status: Acute Plan: --history of head and neck cancer --was treated with concurrent chemotherapy and radiation treatments. (3) Pneumonia Status: Acute Plan: --Right middle lobe pneumonia. --currently on cefepime + azithromycin. --BC no growth (4) Orthostatic hypotension Status: Acute Plan: --unclear etiology --Midodrine started--will monitor today and hopefully d/c tomorrow --hypertensives being held. --primary following --AM cortisol level pending --carotid's show less than 50% stenosis bilaterally Assessment 71y/o female with two synchronous malignancies, she has breast cancer as well as head and neck cancer, admitted with neutropenia, cough and not feeling well. h/o Invasive breast cancer. Head and neck cancer. Severe peripheral vascular disease. COPD. Tobacco abuse. Liver cirrhosis. Hypertension. Plan 1. stop IV antibiotics. start PO Levaquin 2. monitor BP 3. monitor CBC Attending Statement The exam, history, and the medical decision-making described in the above note were completed with the assistance of the mid-level provider. I reviewed and agree with the findings presented. I attest that I had a [id number] encounter with the patient on the same day, and personally performed and documented my assessment and findings in the medical record. clinically better PO Levaquin On midodrine Leukopenia--drop in wbc overnight- check in am . may need another dose of Neupogen if drops further if clinically better tomorrow, can consider discharge d/w rn Problem Qualifiers (1) Pneumonia: Yulisa Mcgee Feb 28, 2017 13:36 Justus Mercedes MD Mar 01, 2017 00:05
[2017-02-28] MEDS: MIDODRINE 5 MG TAB PO SCH (16:44)
[2017-02-28 17:06] LABS: AUTOMATED NEUTROPHIL # 1.6 TH/MM3 (1.8-7.7); BASOPHIL % 0.7 % (0.0-2.0); EOSINOPHIL % 0.3 % (0.0-4.0); HEMATOCRIT 29.7 % (35.0-46.0); LYMPHOCYTE # 0.5 TH/MM3 (1.0-4.8); MEAN CELL VOLUME 96.8 FL (80.0-100.0); MEAN CORPUSCULAR HEMOGLOBIN 31.2 PG (27.0-34.0); MEAN CORPUSCULAR HGB CONC 32.2 % (32.0-36.0); MONO % 19.7 % (0.0-8.0); NEUT % 60.3 % (16.0-70.0); PLATELET COUNT 69 TH/MM3 (150-450); RED BLOOD COUNT 3.07 MIL/MM3 (4.00-5.30); RED CELL DISTRIBUTION WIDTH 19.2 % (11.6-17.2); WHITE BLOOD COUNT 2.6 TH/MM3 (4.0-11.0)
[2017-02-28 17:10] LABS: HEMO FLAGS AUTO DIFF
[2017-02-28 17:35] LABS: BICARBONATE 26.1 MEQ/L (21.0-32.0); POTASSIUM 3.8 MEQ/L (3.5-5.1)
[2017-02-28 17:46] LABS: BANDS 6 % (0-6); EOSINOPHILS 1 % (0-4); NEUTROPHIL # MANUAL DIFF 1.8 TH/MM3 (1.8-7.7); OVALOCYTES 1+ (NORMAL); PLATELET ESTIMATE SMEAR LOW (NORMAL); PLATELET MORPHOLOGY ENLARGED (NORMAL); POLYS (SEG NEUTROPHILS) 62 % (16-70); SCAN/DIFF FINAL DIFF MANUAL; WBC DIFF SAMPLE 100
[2017-02-28] MEDS ORDERED: SODIUM CHLOR 0.9% 1000 ML INJ 1,000 ML IV SCH (20:00)
[2017-03-01] VITALS (8 sets, daily range): BP systolic 109–158; BP diastolic 68–86; PULSE 77–102; RESP 18; TEMP 96.5–97.8; O2SAT 94–96
[2017-03-01] MEDS ORDERED: SODIUM CHLORIDE 0.9% FLUSH 10 ML FLUSH IV FLUSH PRN (04:15)
[2017-03-01] MEDS: MIDODRINE 5 MG TAB PO SCH ×3 (06:57→17:12)
[2017-03-01] MEDS: ACETAMINOPHEN/HYDROcodone 325 MG/5 MG TAB PO PRN (07:02)
[2017-03-01] MEDS ORDERED: FILGRASTIM 480 MCG/1.6 ML VIAL SQ ONE (08:30)
--- NOTE | 2017-03-01 08:31 | HHI.PR ---
Subjective Remarks resting comfortably with no distress. no sob. dizziness is improving. afebrile. Objective Vitals Vital Signs Date Time Temp Pulse Resp B/P Pulse Ox O2 Delivery O2 Flow Rate FiO2 03/01/17 08:00 97.0 102 18 133/86 95 03/01/17 04:25 97.8 91 18 146/68 95 03/01/17 04:05 86 03/01/17 00:07 77 03/01/17 00:00 97.7 83 18 158/74 96 02/28/17 21:14 95 132/65 02/28/17 21:12 83 149/74 02/28/17 21:10 80 169/78 02/28/17 20:05 80 02/28/17 20:00 97.6 72 18 148/78 98 02/28/17 16:40 82 02/28/17 16:00 97.7 82 16 145/88 99 02/28/17 12:56 78 02/28/17 12:00 98.2 76 18 130/78 99 I/O 02/28/17 02/28/17 02/28/17 03/01/17 03/01/17 03/01/17 07:00 15:00 23:00 07:00 15:00 23:00 Intake Total 1042 ml 480 ml 240 ml Output Total 800 ml 700 ml 800 ml 200 ml Balance 242 ml -220 ml -560 ml -200 ml Intake Oral 720 ml 480 ml 240 ml IV Total 322 ml Output Urine Total 800 ml 700 ml 800 ml 200 ml # Voids 3 1 # Bowel Movements 2 1 1 1 Result Diagram: 02/28/17 1550 02/28/17 1550 Imaging Last Impressions Chest X-Ray 02/28/17 0600 Signed Impressions: Service Date/Time: Tuesday, February 28, 2017 07:11 - CONCLUSION: Mild improvement of the right lower lung infiltrate compared to the prior exam. Scott Fregoso MD Carotid Artery Ultrasound 02/23/17 0000 Signed Impressions: Service Date/Time: February 21:32 - CONCLUSION: Moderate plaque formation in the carotid bulb bilaterally with hemodynamic parameters suggesting less than 50%% stenosis. Jan Caballero MD Objective Remarks GENERAL: This is a well-nourished, well-developed patient, in no apparent distress. CARDIOVASCULAR: Regular rate and regular rhythm without murmurs, gallops, or rubs. RESPIRATORY: Clear to auscultation. Breath sounds equal bilaterally. No wheezes , rales, or rhonchi. GASTROINTESTINAL: Abdomen soft, non-tender, nondistended. Normal, active bowel sounds MUSCULOSKELETAL: Extremities without clubbing, cyanosis, or edema. NEURO: Alert & Oriented x4 to person, place, time, situation. Moves all ext x4 Procedures none Medications and IVs Current Medications Vancomycin HCl 1250 mg/Sodium Chloride 262.5 ml @ 262.5 mls/ hr ONCE ONCE IV Last administered on 02/23/17 20:30; Start 02/23/17 at 18:15; Stop 02/23/17 at 19: 14; Status DC Cefepime HCl/ Sodium Chloride (Maxipime Inj/NS Inj) 100 ml @ 200 mls/hr ONCE ONCE IV Last administered on 02/23/17 18:39; Start 02/23/17 at 18:15; Stop at 18:44; Status DC Sodium Chloride (NS Flush) 2 ml UNSCH PRN IV FLUSH FLUSH AFTER USING IV ACCESS Last administered on 02/28/17 04:52; Start 02/23/17 at 19:30 Sodium Chloride (NS Flush) 2 ml BID IV FLUSH Last administered on 02/28/17 21: 18; Start 02/23/17 at 21:00 Ondansetron HCl (Zofran Inj) 4 mg Q6H PRN IVP NAUSEA OR VOMITING; Start at 20:00 Naloxone HCl 0.4 mg 0.4 mg UNSCH PRN IV SEE LABEL COMMENTS; Start 02/23/17 at 19 :30 Cefepime HCl/ Sodium Chloride (Maxipime Inj/NS Inj) 100 ml @ 200 mls/hr Q12H IV Last administered on 02/28/17 09:16; Start 02/24/17 at 09:00; Stop 02/28/17 at 13:36; Status DC Albuterol/ Ipratropium (Duoneb Neb) 1 ampule Q4HR NEB NEB Last administered on 02/27/17 21:08; Start 02/23/17 at 21:15; Stop 02/27/17 at 21:15; Status DC Albuterol/ Ipratropium (Duoneb Neb) 1 ampule Q2HR NEB PRN NEB sob, cough, wheezing; Start 02/23/17 at 21:15 Nadolol (Corgard) 20 mg DAILY PO ; Start 02/24/17 at 09:00; Status Hold Alprazolam 0.25 mg 0.25 mg Q8H PRN PO ANXIETY Last administered on 02/28/17 09 :18; Start 02/23/17 at 22:00 Sodium Chloride (NS 1000 ml Inj) 1,000 ml @ 100 mls/hr Q10H ONCE IV Last administered on 02/24/17 10:09; Start 02/24/17 at 08:00; Stop 02/24/17 at 17:59; Status DC Acetaminophen (Tylenol) 650 mg Q4H PRN PO FEVER/ PAIN 1-5; Start 02/24/17 at 13: 15 Acetaminophen/ Hydrocodone Bitart ([place] 5-325 Mg) 1 tab Q4H PRN PO PAIN 6-10 Last administered on 03/01/17 07:02; Start 02/24/17 at 13:15 Filgrastim 480 mcg 480 mcg ONCE ONCE SQ Last administered on 02/24/17 15:02; Start 02/24/17 at 15:00; Stop 02/24/17 at 15:01; Status DC Azithromycin 500 mg/Sodium Chloride 250 ml @ 250 mls/hr Q24H IV Last administered on 02/28/17 05:09; Start 02/25/17 at 06:00; Stop 02/28/17 at 13:36 ; Status DC Sodium Chloride 1,000 ml @ 84 mls/hr [id number] ONCE IV Last administered on 09:22; Start 02/26/17 at 08:15; Stop 02/26/17 at 20:09; Status DC Sodium Chloride 1,000 ml @ 75 mls/hr [id number] ONCE IV Last administered on 02/27 09:55; Start 02/27/17 at 08:45; Stop 02/27/17 at 22:04; Status DC Sodium Chloride (NS 500 ml Inj) 500 ml @ 250 mls/hr Q2H IV Last administered on 02/27/17 23:00; Start 02/27/17 at 23:00; Stop 02/28/17 at 00:59; Status DC Midodrine (Proamatine) 5 mg TID@07,12,17 PO ; Start 02/28/17 at 12:30; Stop 07/07 at 12:30; Status DC Midodrine (Proamatine) 10 mg TID@07,12,17 PO Last administered on 03/01/17 06: 57; Start 02/28/17 at 17:00 Levofloxacin 750 mg 750 mg DAILY PO ; Start 03/01/17 at 09:00 Sodium Chloride (NS 1000 ml Inj) 1,000 ml @ 84 mls/hr [id number] IV Last administered on 02/28/17 21:18; Start 02/28/17 at 20:00; Stop 03/01/17 at 06:00 ; Status DC Heparin Sodium (Porcine) (Heparin Central Flush) 250 units UNSCH PRN IV FLUSH SEE PROTOCOL TABLE; Start 03/01/17 at 04:15 Heparin Sodium (Porcine) (Heparin Central Flush) 500 units UNSCH IV FLUSH ; Start 03/01/17 at 04:15 Sodium Chloride (NS Flush) 5 ml UNSCH PRN IV FLUSH NEEDED; Start 03/01/17 at 04:15 A/P Assessment and Plan A/P Pneumonia, treated 2 weeks ago with Levaquin, non productive cough and immunocompromised Chest xray on 02/28 with mild improvement -continue with po levaquin -legionella and pneumococcal urinary antigen negative -blood cultures negative so far Leukopenia-with further drop in white cell count -might need another dose of Neupogen -awaiting oncology follow-up Vertigo, suspected related to fatigue and leukopenia and orthostatic hypotension - -[place] US carotids with less than 50% stenosis -received IV fluid -added Midodrine -will monitor the response HTN, chronic- BP controlled- -hold home BP meds for now Black stools, patient reports for the last week, hemoglobin fairly stable -occult stool ordered -Trend hemoglobin, will order GI consult if needed. generalized weakness- consulted PT DVT prophylaxis: SCDs Discharge Planning dc home today. see med list. will have HHC. f/u with pcp and oncology. d/w the patient. d/w the RN. d/w the oncology PA. time spent 31 min. Romel Jones MD Mar 01, 2017 08:31
[2017-03-01] MEDS ORDERED: LEVOFLOXACIN 750 MG TAB PO SCH (09:00)
[2017-03-01] MEDS: SODIUM CHLORIDE 0.9% FLUSH 10 ML FLUSH IV FLUSH SCH (09:44)
[2017-03-01] MEDS: ALPRAZolam 0.25 MG TAB PO PRN (09:50)
--- NOTE | 2017-03-01 12:11 | PD.ONC.PN ---
Subjective Subjective Remarks Afebrile overnight. Patient resting in bed in nad. Feeling well today. No dizziness. She feels better and wants to go home. Objective Data Date Time Temp Pulse Resp B/P Pulse Ox O2 Delivery O2 Flow Rate FiO2 03/01/17 12:00 97.5 95 18 142/77 96 03/01/17 09:00 147/75 151/85 109/75 03/01/17 08:00 97.0 102 18 133/86 95 03/01/17 04:25 97.8 91 18 146/68 95 03/01/17 04:05 86 03/01/17 00:07 77 03/01/17 00:00 97.7 83 18 158/74 96 02/28/17 21:14 95 132/65 02/28/17 21:12 83 149/74 02/28/17 21:10 80 169/78 02/28/17 20:05 80 02/28/17 20:00 97.6 72 18 148/78 98 02/28/17 16:40 82 02/28/17 16:00 97.7 82 16 145/88 99 02/28/17 12:56 78 03/01/17 03/01/17 03/01/17 07:00 15:00 23:00 Intake Total 240 ml 360 ml Output Total 800 ml 200 ml Balance -560 ml 160 ml Result Diagram: 02/28/17 1550 02/28/17 1550 Laboratory Results Laboratory Tests Test 02/28/17 15:50 White Blood Count 2.6 TH/MM3 Red Blood Count 3.07 MIL/MM3 Hemoglobin 9.6 GM/DL Hematocrit 29.7 % Mean Corpuscular Volume 96.8 FL Mean Corpuscular Hemoglobin 31.2 PG Mean Corpuscular Hemoglobin 32.2 % Concent Red Cell Distribution Width 19.2 % Platelet Count 69 TH/MM3 Mean Platelet Volume 10.0 FL Neutrophils (%) (Auto) 60.3 % Lymphocytes (%) (Auto) 19.0 % Monocytes (%) (Auto) 19.7 % Eosinophils (%) (Auto) 0.3 % Basophils (%) (Auto) 0.7 % Neutrophils # (Auto) 1.6 TH/MM3 Lymphocytes # (Auto) 0.5 TH/MM3 Monocytes # (Auto) 0.5 TH/MM3 Eosinophils # (Auto) 0.0 TH/MM3 Basophils # (Auto) 0.0 TH/MM3 CBC Comment AUTO DIFF Differential Total Cells 100 Counted Neutrophils % (Manual) 62 % Band Neutrophils % 6 % Lymphocytes % 13 % Monocytes % 18 % Eosinophils % 1 % Neutrophils # (Manual) 1.8 TH/MM3 Differential Comment FINAL DIFF MANUAL Platelet Estimate LOW Platelet Morphology Comment ENLARGED Ovalocytes 1+ Sodium Level 140 MEQ/L Potassium Level 3.8 MEQ/L Chloride Level 105 MEQ/L Carbon Dioxide Level 26.1 MEQ/L Anion Gap 9 MEQ/L Blood Urea Nitrogen 8 MG/DL Creatinine 0.44 MG/DL Estimat Glomerular Filtration 142 ML/MIN Rate Random Glucose 105 MG/DL Calcium Level 8.5 MG/DL Administered Medications Medications (Trade) Dose Ordered Sig/[place] Route PRN Reason Start Time Stop Time Status Last Admin Dose Admin Sodium Chloride (NS Flush) 2 ml UNSCH PRN IV FLUSH FLUSH AFTER USING IV ACCESS 02/23/17 19:30 02/28/17 04:52 Sodium Chloride (NS Flush) 2 ml BID IV FLUSH 02/23/17 21:00 03/01/17 09:44 Alprazolam (Xanax) 0.25 mg Q8H PRN PO ANXIETY 02/23/17 22:00 03/01/17 09:50 Acetaminophen/ Hydrocodone Bitart ([place] 5-325 Mg) 1 tab Q4H PRN PO PAIN 6-10 02/24/17 13:15 03/01/17 07:02 Midodrine (Proamatine) 10 mg TID@,,17 PO 02/28/17 17:00 03/01/17 06:57 Levofloxacin (Levaquin) 750 mg DAILY PO 03/01/17 09:00 03/01/17 09:44 Objective Remarks GENERAL: Elderly female, upright in bed in nad. SKIN: Warm and dry. HEAD: Normocephalic. EYES: No injection or drainage. NECK: Supple, trachea midline. CARDIOVASCULAR: Regular rate and rhythm RESPIRATORY: diminished at bases. anterior cabrera clear. GASTROINTESTINAL: Abdomen soft, non-tender, nondistended. EXTREMITIES: No cyanosis NEUROLOGICAL: aox3, normal speech. moving all extremities. Assessment/Plan Problem List: (1) Breast cancer, left Status: Chronic Plan: --diagnosed with infiltrating ductal carcinoma of the left breast. --underwent bilateral mastectomies. --This was an invasive moderately differentiated ductal carcinoma of the breast. --[place] lymph node biopsy confirmed 6/10 positive lymph nodes. --is being treated with adjuvant chemotherapy. (2) Head and neck cancer Status: Acute Plan: --history of head and neck cancer --was treated with concurrent chemotherapy and radiation treatments. (3) Pneumonia Status: Resolved Plan: --Right middle lobe pneumonia. --currently on Levaquin --BC no growth (4) Orthostatic hypotension Status: Resolved Plan: --unclear etiology --Midodrine started--will monitor today and hopefully d/c tomorrow --hypertensives being held. --primary following --AM cortisol level pending --carotid's show less than 50% stenosis bilaterally Assessment 71y/o female with two synchronous malignancies, she has breast cancer as well as head and neck cancer, admitted with neutropenia, cough and not feeling well. h/o Invasive breast cancer. Head and neck cancer. Severe peripheral vascular disease. COPD. Tobacco abuse. Liver cirrhosis. Hypertension. Plan 1. continue PO Levaquin 2. monitor BP 3. monitor CBC--give one dose Neupogen today 4. patient clear for discharge Attending Statement The exam, history, and the medical decision-making described in the above note were completed with the assistance of the mid-level provider. I reviewed and agree with the findings presented. I attest that I had a [id number] encounter with the patient on the same day, and personally performed and documented my assessment and findings in the medical record. f/u in clinic on Monday for labs. cbc and cmp Problem Qualifiers (1) Pneumonia: Yulisa Mcgee Mar 01, 2017 12:11 Justus Mercedes MD Mar 02, 2017 00:10
[2017-03-01] MEDS ORDERED: LEVA750T9 PO (14:28)
[2017-03-01] MEDS ORDERED: MIDO5TAB PO (14:28)
--- NOTE | 2017-03-01 14:31 | HHI.DS ---
Discharge Summary Admission Date Feb 23, 2017 at 18:59 Discharge Date: Mar 01, 2017 Admitting Diagnosis Pneumonia/Neutropenia (1) Pneumonia ICD Code: J18.9 Diagnosis: Principal (2) Leukopenia ICD Code: D72.819 Diagnosis: Principal (3) Breast cancer, left ICD Code: C50.912 Diagnosis: Secondary (4) Orthostatic hypotension ICD Code: I95.1 Diagnosis: Principal Procedures none Brief History - From Admission Written by ROSALINDA Weeks acting as scribe for [Robby] on 02/23/17 at 20: 29. 71 y/o with a history of HTN, COPD, seizure disorder since age 4 (not on medications since age 50) Uterine CA, throat ca, tongue ca,breast ca and currently undergoing chemo and cirrhosis presented to the ED with weakness and dizziness. She has been feeling weak for the last 5 or 6 days, with associated dizziness, ringing in her ears, and sinus pain. She feels when she feels dizziness she feels she is going to pass out. She was seen in Dr. Morales office and was given antibiotics and fluids. She just picked up a new prescription today but is unsure of the name. She was recently treated for pneumonia around for 7 days and then recently out patient she was treated for a sinus infection for 3 days. She is noted to have a non productive cough, no fevers but extreme chills. She does states she has had black stools for the last weak. No chest pain, sob, nausea or vomiting. No dysuria, or diarrhea. CBC/BMP: 02/28/17 1550 02/28/17 1550 Significant Findings Laboratory Tests Test 02/27/17 02/28/17 05:36 15:50 Red Blood Count 2.94 MIL/MM3 3.07 MIL/MM3 (4.00-5.30) (4.00-5.30) Hemoglobin 9.4 GM/DL 9.6 GM/DL (11.6-15.3) (11.6-15.3) Hematocrit 28.3 % 29.7 % (35.0-46.0) (35.0-46.0) Red Cell Distribution Width 19.4 % 19.2 % (11.6-17.2) (11.6-17.2) Platelet Count 66 TH/MM3 69 TH/MM3 (150-450) (150-450) Neutrophils % (Manual) 72 % (16-70) Band Neutrophils % 13 % (0-6) Lymphocytes % 8 % (9-44) Platelet Estimate LOW (NORMAL) LOW (NORMAL) Ovalocytes 1+ (NORMAL) 1+ (NORMAL) White Blood Count 2.6 TH/MM3 (4.0-11.0) Monocytes (%) (Auto) 19.7 % (0.0-8.0) Neutrophils # (Auto) 1.6 TH/MM3 (1.8-7.7) Lymphocytes # (Auto) 0.5 TH/MM3 (1.0-4.8) Monocytes % 18 % (0-8) Platelet Morphology Comment ENLARGED (NORMAL) Creatinine 0.44 MG/DL (0.50-1.00) Imaging Last Impressions Chest X-Ray 02/28/17 0600 Signed Impressions: Service Date/Time: Tuesday, February 28, 2017 07:11 - CONCLUSION: Mild improvement of the right lower lung infiltrate compared to the prior exam. Scott Fregoso MD Carotid Artery Ultrasound 02/23/17 0000 Signed Impressions: Service Date/Time: February 21:32 - CONCLUSION: Moderate plaque formation in the carotid bulb bilaterally with hemodynamic parameters suggesting less than 50%% stenosis. Jan Caballero MD PE at Discharge GENERAL: This is a well-nourished, well-developed patient, in no apparent distress. CARDIOVASCULAR: Regular rate and regular rhythm without murmurs, gallops, or rubs. RESPIRATORY: Clear to auscultation. Breath sounds equal bilaterally. No wheezes , rales, or rhonchi. GASTROINTESTINAL: Abdomen soft, non-tender, nondistended. Normal, active bowel sounds MUSCULOSKELETAL: Extremities without clubbing, cyanosis, or edema. NEURO: Alert & Oriented x4 to person, place, time, situation. Moves all ext x4 Hospital Course Pneumonia, treated 2 weeks ago with Levaquin, non productive cough and immunocompromised Chest xray on 02/28 with mild improvement -continue with po levaquin -legionella and pneumococcal urinary antigen negative -blood cultures negative so far Leukopenia-with further drop in white cell count -might need another dose of Neupogen -awaiting oncology follow-up Vertigo, suspected related to fatigue and leukopenia and orthostatic hypotension - -[place] US carotids with less than 50% stenosis -received IV fluid -added Midodrine -will monitor the response HTN, chronic- BP controlled- -hold home BP meds for now Black stools, patient reports for the last week, hemoglobin fairly stable -occult stool ordered -Trend hemoglobin, will order GI consult if needed. generalized weakness- consulted PT DVT prophylaxis: SCDs Pt Condition on Discharge: Fair Discharge Disposition: Disch w/ Home Health Serv Discharge Time: > 30 minutes Discharge Instructions DIET: Follow Instructions for: Heart Healthy Diet Activities you can perform: Regular-No Restrictions Follow up Referrals: Oncology PCP Follow-up New Medications: Walker Rolling/GetGo (Walker Rolling/GetGo) 1 Mis Mis 1 EA .ROUTE DIRECTED #1 EA Levofloxacin (Levaquin) 750 Mg Tablet 750 MG PO DAILY infection Days 5 Ref 0 TAB Midodrine (Midodrine) 5 Mg Tab 10 MG PO TID@07,12,17 orthostatic hypotension Days 14 Ref 0 TAB Continued Medications: Albuterol 18 GM Inh (Ventolin Hfa 18 GM Inh) 90 Mcg/Act Aer 2 PUFF INH Q6HR PRN SHORTNESS OF BREATH #1 Ref 0 INHALER Alprazolam (Xanax) 0.25 Mg Tab 0.25 MG PO Q8H PRN ANXIETY Ref 0 TAB Hydrocodone-Acetaminophen (Hydrocodone-Acetaminophen) 5-325 mg Tab 1 TAB PO Q6H PRN pain #12 Ref 0 TAB ([Aspirin Chew]) 81 MG CHEW 81 MG PO DAILY pvd Days 30 Ref 0 TAB.CHEW ([chemotherapy]) 1 INJECTION IJ DIRECTED Discontinued Medications: Levofloxacin (Levaquin) 500 Mg Tablet 500 MG PO DAILY infection Days 5 Ref 0 TAB Nadolol (Nadolol) 20 Mg Tab 20 MG PO DAILY #30 Ref 0 TAB Romel Jones MD Mar 01, 2017 14:31
== END 2017-03-01 18:00 | disposition home health service (06) | DRG 190 ==
LOC: NEPE 15:44 → NEDA 18:59 → HOCA 22:33
PROVIDERS: ADMIT Internal Medicine; ATTEND Internal Medicine
DX: J44.0 Chronic obstructive pulmonary disease with (acute) lower respiratory infection (principal); J18.9 Pneumonia, unspecified organism; D70.9 Neutropenia, unspecified; K74.60 Unspecified cirrhosis of liver; C50.911 Malignant neoplasm of unspecified site of right female breast; C50.912 Malignant neoplasm of unspecified site of left female breast; J44.9 Chronic obstructive pulmonary disease, unspecified; R42 Dizziness and giddiness; Z85.810 Personal history of malignant neoplasm of tongue; Z85.42 Personal history of malignant neoplasm of other parts of uterus; F41.9 Anxiety disorder, unspecified; F32.9 Major depressive disorder, single episode, unspecified; Z86.73 Personal history of transient ischemic attack (TIA), and cerebral infarction without residual deficits; K21.9 Gastro-esophageal reflux disease without esophagitis; I10 Essential (primary) hypertension; M54.30 Sciatica, unspecified side; E78.00 Pure hypercholesterolemia, unspecified; I25.2 Old myocardial infarction; Z92.3 Personal history of irradiation; F17.210 Nicotine dependence, cigarettes, uncomplicated; G40.909 Epilepsy, unspecified, not intractable, without status epilepticus; I73.9 Peripheral vascular disease, unspecified; D64.81 Anemia due to antineoplastic chemotherapy; T45.1X5A Adverse effect of antineoplastic and immunosuppressive drugs, initial encounter; Z90.13 Acquired absence of bilateral breasts and nipples; I95.1 Orthostatic hypotension; Z90.710 Acquired absence of both cervix and uterus
CPT/HCPCS: 36591; 71010; 71020; 80048; 80053; 81001; 82533; 85007; 85025; 85027; 85610; 85730; 87040; 87086; 87449; 93880; 94150; 94640; 94664; 94667; 94668; 96374; J0456; J0692; J1442; J1642; J3370; J7030; J7040; J7050